=== PATIENT | female | born 1955 | race Caucasian/White ===

== ENCOUNTER 2020-08-06 07:35 | Outpatient (REF) | payer OTHER, SELFPAY ==
[2020-08-06 11:28] LABS: Estimated Average Glucose 143 mg/dL; Hemoglobin A1c % 6.6 %
[2020-08-06 11:44] LABS: Alanine Aminotransferase 31 U/L (0-31); Albumin Level 4.4 g/dL (3.5-5.0); Alkaline Phosphatase 97 U/L (39-117); Anion Gap 15 (12-20); Aspartate Amino Transferase 24 U/L (5-31); Bilirubin Total 0.8 mg/dL (0.0-1.0); Blood Urea Nitrogen 18 mg/dL (9-16); Calcium 9.3 mg/dL (8.4-10.2); Carbon Dioxide 28 mmol/L (22-29); Chloride 100 mmol/L (96-108); Cholesterol 173 mg/dL; Estimated Glomerular Filt Rate > 60; Glucose Fasting 123 mg/dL (60-99); HDL Cholesterol 69 mg/dL; LDL Cholesterol Calculated 91 mg/dl; Potassium 4.6 mmol/l (3.3-5.1); Sodium 138 mmol/L (135-145); Total Protein 7.6 g/dL (6.5-8.0); Triglycerides 66 mg/dL
[2020-08-06 12:13] LABS: Creatinine Urine 63.67 mg/dL; Microalbum/Creatinine Ratio Ur 7.8 ug/mg cr
== END 2020-08-06 07:36 | disposition home or self-care (01) ==
LOC: HO.HMGCLDS 07:35
PROVIDERS: PCP Internal Medicine; Visit Provider Internal Medicine
DX: E11.9 Type 2 diabetes mellitus without complications (principal); I10 Essential (primary) hypertension; E78.5 Hyperlipidemia, unspecified
CPT/HCPCS: 80053; 80061; 82043; 83036; 84443

== ENCOUNTER 2020-12-10 07:20 | Outpatient (REF) | payer OTHER, SELFPAY ==
[2020-12-10 11:52] LABS: Alanine Aminotransferase 27 U/L (0-31); Albumin Level 4.4 g/dL (3.5-5.0); Alkaline Phosphatase 93 U/L (39-117); Anion Gap 14 (12-20); Aspartate Amino Transferase 21 U/L (5-31); Bilirubin Total 0.6 mg/dL (0.0-1.0); Blood Urea Nitrogen 20 mg/dL (9-16); Calcium 9.2 mg/dL (8.4-10.2); Carbon Dioxide 29 mmol/L (22-29); Chloride 101 mmol/L (96-108); Cholesterol 185 mg/dL; Estimated Glomerular Filt Rate > 60; Glucose Fasting 114 mg/dL (60-99); HDL Cholesterol 67 mg/dL; LDL Cholesterol Calculated 103 mg/dl; Potassium 5.3 mmol/L (3.3-5.1); Sodium 139 mmol/L (135-145); Total Protein 7.4 g/dL (6.5-8.0); Triglycerides 76 mg/dL
[2020-12-10 12:00] LABS: Estimated Average Glucose 131 mg/dL; Hemoglobin A1c % 6.2 %
[2020-12-10 12:09] LABS: Creatinine Urine 39.89 mg/dL; Microalbumin Urine < 5.0 mg/L
[2020-12-10 12:17] LABS: TSH reflex Free T4 0.61 uIU/mL (0.32-4.0)
== END 2020-12-10 07:21 | disposition home or self-care (01) ==
LOC: HO.HMGCLDS 07:20
PROVIDERS: PCP Internal Medicine; Visit Provider Internal Medicine
DX: E11.9 Type 2 diabetes mellitus without complications (principal); I10 Essential (primary) hypertension; E78.5 Hyperlipidemia, unspecified
CPT/HCPCS: 36415; 80053; 80061; 82043; 83036; 84443

== ENCOUNTER 2021-05-18 07:05 | Outpatient (REF) | payer OTHER, SELFPAY ==
[2021-05-18 11:30] LABS: Hematocrit 45.1 % (37-47); Hemoglobin 14.5 g/dl (12.0-16.0); Mean Corpuscular HGB Conc 32.2 g/dl (31.0-35.0); Mean Corpuscular Hemoglobin 27.1 pg (27.0-33.0); Mean Corpuscular Volume 84.1 fL (80-98); Mean Platelet Volume 10.8 fL (9.4-12.3); Platelet Count 224 X10*3/uL (160-400); Red Blood Count 5.36 X10*6/uL (4.20-5.50); Red Cell Distribution Width 14.1 % (11.0-16.0); White Blood Count 7.2 X10*3/uL (4.8-10.8)
[2021-05-18 11:56] LABS: Alanine Aminotransferase 19 U/L (0-31); Albumin Level 4.1 g/dL (3.5-5.0); Alkaline Phosphatase 85 U/L (39-117); Anion Gap 13 (12-20); Aspartate Amino Transferase 17 U/L (5-31); Bilirubin Total 0.6 mg/dL (0.0-1.0); Blood Urea Nitrogen 24 mg/dL (9-16); Calcium 9.4 mg/dL (8.4-10.2); Carbon Dioxide 28 mmol/L (22-29); Chloride 101 mmol/L (96-108); Cholesterol 201 mg/dL; Estimated Glomerular Filt Rate > 60; Glucose Fasting 117 mg/dL (60-99); HDL Cholesterol 78 mg/dL; LDL Cholesterol Calculated 110 mg/dl; Potassium 5.2 mmol/L (3.3-5.1); Sodium 137 mmol/L (135-145); Triglycerides 68 mg/dL
[2021-05-18 12:24] LABS: Creatinine Urine 56.26 mg/dL; Microalbumin Urine < 5.0 mg/L
[2021-05-18 12:59] LABS: Estimated Average Glucose 134 mg/dL; Hemoglobin A1c % 6.3 %
== END 2021-05-18 07:06 | disposition home or self-care (01) ==
LOC: HO.HMGCLDS 07:05
PROVIDERS: PCP Internal Medicine; Visit Provider Internal Medicine
DX: E11.9 Type 2 diabetes mellitus without complications (principal); I10 Essential (primary) hypertension; E78.5 Hyperlipidemia, unspecified
CPT/HCPCS: 36415; 80053; 80061; 82043; 83036; 85027

== ENCOUNTER 2021-09-22 09:04 | Outpatient (REF) | payer OTHER, SELFPAY ==
[2021-09-22 11:38] LABS: Estimated Average Glucose 137 mg/dL; Hemoglobin A1c % 6.4 %
[2021-09-22 11:48] LABS: Creatinine Urine 79.21 mg/dL; Microalbum/Creatinine Ratio Ur 6.3 ug/mg cr
[2021-09-22 11:58] LABS: Alanine Aminotransferase 26 U/L (0-31); Albumin Level 4.3 g/dL (3.5-5.0); Alkaline Phosphatase 87 U/L (39-117); Anion Gap 14 (12-20); Aspartate Amino Transferase 20 U/L (5-31); Bilirubin Total 0.6 mg/dL (0.0-1.0); Blood Urea Nitrogen 23 mg/dL (9-16); Calcium 9.5 mg/dL (8.4-10.2); Carbon Dioxide 26 mmol/L (22-29); Chloride 102 mmol/L (96-108); Cholesterol 190 mg/dL; Estimated Glomerular Filt Rate > 60; Glucose Fasting 111 mg/dL (60-99); HDL Cholesterol 72 mg/dL; LDL Cholesterol Calculated 102 mg/dl; Potassium 4.6 mmol/L (3.3-5.1); Sodium 137 mmol/L (135-145); Total Protein 7.6 g/dL (6.5-8.0); Triglycerides 82 mg/dL
== END 2021-09-22 09:05 | disposition home or self-care (01) ==
LOC: HO.HMGCLDS 09:04
PROVIDERS: Visit Provider Internal Medicine
DX: E11.9 Type 2 diabetes mellitus without complications (principal); E78.5 Hyperlipidemia, unspecified; I10 Essential (primary) hypertension
CPT/HCPCS: 36415; 80053; 80061; 82043; 83036

== ENCOUNTER 2021-12-14 08:17 | Outpatient (REF) | payer OTHER, SELFPAY ==
[2021-12-14 11:55] LABS: Alanine Aminotransferase 25 U/L (0-31); Albumin Level 4.2 g/dL (3.5-5.0); Alkaline Phosphatase 93 U/L (39-117); Anion Gap 14 (12-20); Aspartate Amino Transferase 20 U/L (5-31); Bilirubin Total 0.7 mg/dL (0.0-1.0); Blood Urea Nitrogen 20 mg/dL (9-16); Carbon Dioxide 28 mmol/L (22-29); Chloride 101 mmol/L (96-108); Cholesterol 182 mg/dL; Estimated Glomerular Filt Rate > 60; Glucose Fasting 127 mg/dL (60-99); HDL Cholesterol 61 mg/dL; LDL Cholesterol Calculated 108 mg/dl; Potassium 4.9 mmol/L (3.3-5.1); Sodium 138 mmol/L (135-145); Total Protein 7.4 g/dL (6.5-8.0); Triglycerides 69 mg/dL
[2021-12-14 12:10] LABS: Estimated Average Glucose 140 mg/dL; Hemoglobin A1C 176.4595 umol/L; Hemoglobin A1c % 6.5 %
[2021-12-14 12:18] LABS: TSH reflex Free T4 0.49 uIU/mL (0.32-4.0)
== END 2021-12-14 08:18 | disposition home or self-care (01) ==
LOC: HO.HMGCLDS 08:17
PROVIDERS: Visit Provider Internal Medicine
DX: E11.9 Type 2 diabetes mellitus without complications (principal); I10 Essential (primary) hypertension; E78.5 Hyperlipidemia, unspecified
CPT/HCPCS: 36415; 80053; 80061; 83036; 84443

== ENCOUNTER 2022-04-19 06:56 | Outpatient (REF) | payer OTHER, SELFPAY ==
[2022-04-19 11:45] LABS: Hematocrit 40.2 % (37.0-47.0); Mean Corpuscular HGB Conc 32.3 g/dl (31.0-35.0); Mean Corpuscular Hemoglobin 27.1 pg (27.0-33.0); Mean Corpuscular Volume 83.8 fL (80.0-98.0); Mean Platelet Volume 11.1 fL (9.4-12.3); Platelet Count 242 X10*3/uL (160-400); Red Cell Distribution Width 13.2 % (11.0-16.0); White Blood Count 7.9 X10*3/uL (4.8-10.8)
[2022-04-19 11:54] LABS: Alanine Aminotransferase 24 U/L (0-31); Albumin Level 4.3 g/dL (3.5-5.0); Alkaline Phosphatase 93 U/L (39-117); Anion Gap 14 (12-20); Aspartate Amino Transferase 18 U/L (5-31); Bilirubin Total 0.3 mg/dL (0.0-1.0); Blood Urea Nitrogen 17 mg/dL (9-16); Calcium 9.1 mg/dL (8.4-10.2); Carbon Dioxide 28 mmol/L (22-29); Chloride 103 mmol/L (96-108); Cholesterol 169 mg/dL; Estimated Glomerular Filt Rate > 60; Glucose Fasting 133 mg/dL (60-99); HDL Cholesterol 59 mg/dL; LDL Cholesterol Calculated 94 mg/dl; Potassium 5.1 mmol/L (3.3-5.1); Sodium 140 mmol/L (135-145); Total Protein 7.3 g/dL (6.5-8.0); Triglycerides 83 mg/dL
[2022-04-19 11:59] LABS: Estimated Average Glucose 148 mg/dL; Hemoglobin A1c % 6.8 %
== END 2022-04-19 06:57 | disposition home or self-care (01) ==
LOC: HO.HMGCLDS 06:56
PROVIDERS: PCP Internal Medicine; Visit Provider Internal Medicine
DX: E11.9 Type 2 diabetes mellitus without complications (principal); I10 Essential (primary) hypertension
CPT/HCPCS: 36415; 80053; 80061; 83036; 85027

== ENCOUNTER 2022-08-17 07:28 | Outpatient (REF) | payer OTHER, SELFPAY ==
[2022-08-17 11:20] LABS: MANUAL DIFF FLAG NO
[2022-08-17 11:46] LABS: Basophils Absolute Auto 0.1 X10*3/uL (0.0-0.2); Basophils Percent Auto 0.7 % (0-2); Eosinophils Absolute Auto 0.1 X10*3/uL (0.0-0.4); Eosinophils Percent Auto 1.2 % (0-4); Hematocrit 41.4 % (37.0-47.0); Hemoglobin 13.3 g/dl (12.0-16.0); Imm Gran Abs Auto 0.04 X10*3/uL (0.00-0.03); Imm Gran Pct Auto 0.5 % (0.0-0.4); Lymphocytes Absolute Auto 1.9 X10*3/uL (1.2-4.9); Lymphocytes Percent Auto 22.3 % (20-40); Mean Corpuscular HGB Conc 32.1 g/dl (31.0-35.0); Mean Corpuscular Hemoglobin 26.8 pg (27.0-33.0); Mean Corpuscular Volume 83.5 fL (80.0-98.0); Mean Platelet Volume 10.7 fL (9.4-12.3); Monocytes Absolute Auto 0.7 X10*3/uL (0.1-1.2); Monocytes Percent Auto 7.9 % (2-11); Neutrophils Absolute Auto 5.6 x10*3/uL (2.0-8.3); Neutrophils Percent Auto 67.4 % (45-73); Platelet Count 247 X10*3/uL (160-400); Red Blood Count 4.96 X10*6/uL (4.20-5.50); Red Cell Distribution Width 14.6 % (11.0-16.0); White Blood Count 8.4 X10*3/uL (4.8-10.8)
[2022-08-17 11:58] LABS: Estimated Average Glucose 126 mg/dL
[2022-08-17 12:43] LABS: Alanine Aminotransferase 21 U/L (0-31); Albumin Level 4.3 g/dL (3.5-5.0); Alkaline Phosphatase 91 U/L (39-117); Anion Gap 13 (12-20); Aspartate Amino Transferase 17 U/L (5-31); Bilirubin Total 0.4 mg/dL (0.0-1.0); Blood Urea Nitrogen 20 mg/dL (9-16); Calcium 9.7 mg/dL (8.4-10.2); Carbon Dioxide 29 mmol/L (22-29); Chloride 101 mmol/L (96-108); Estimated Glomerular Filt Rate > 60; Glucose Fasting 125 mg/dL (60-99); Potassium 4.7 mmol/L (3.3-5.1); Sodium 138 mmol/L (135-145); Total Protein 7.3 g/dL (6.5-8.0)
== END 2022-08-17 07:29 | disposition home or self-care (01) ==
LOC: HO.HMGCLDS 07:28
PROVIDERS: PCP Internal Medicine; Visit Provider Internal Medicine
DX: E11.9 Type 2 diabetes mellitus without complications (principal); E78.5 Hyperlipidemia, unspecified; I10 Essential (primary) hypertension
CPT/HCPCS: 36415; 80053; 83036; 85025

== ENCOUNTER 2022-08-23 11:04 | Outpatient (REF) | payer OTHER, SELFPAY ==
--- NOTE | ~2022-08-23 | XR_ITS ---
EXAMINATION: XR SHOULDER, LEFT CLINICAL INFORMATION: Left shoulder pain. COMPARISON: None TECHNIQUE: Three views of the left shoulder. FINDINGS: Bones have normal alignment. Minimal osteophyte formation of the acromioclavicular joint. The humeral head is well-positioned over the intact glenoid. Glenohumeral joint space is maintained. A punctate calcification projects inferior to the glenoid in region of long triceps attachment. However, no calcium deposition within rotator cuff tendons. The subacromial space is maintained. No hook-shaped acromion, os acromiale or subacromial enthesophyte. No osseous findings that would predispose to a subacromial impingement disorder. XR/XR shoulder LT min 2V IMPRESSION: * No fracture or malalignment at the left shoulder. * Minimal osteoarthrosis of the acromioclavicular joint.
== END 2022-08-23 11:05 | disposition home or self-care (01) ==
LOC: HO.HMGCX 11:04
PROVIDERS: PCP Internal Medicine; Visit Provider Internal Medicine
DX: M25.512 Pain in left shoulder (principal)
CPT/HCPCS: 73030

== ENCOUNTER 2022-09-20 11:00 | Outpatient (RCR) | payer MEDICARE, OTHER, SELFPAY ==
--- NOTE | 2022-09-15 13:45 | MHC.PT.EP ---
[facility] [place] Office [place] Office [place] Office [address] Margi Gomez [address] [phone] F: [phone] F: [phone] F: [phone] F: [phone] Physical Therapy Plan of Care Date of Evaluation: Date of Surgery: n/a Diagnosis: pain in L shoulder Assessment: Patient is a 66 year old female presenting to PT with complaints of pain in her L shoulder. Pt reports onset of pain began about 2 months ago due to insidious onset but likely due to repetitive use at work. She presents today with impairments in pain, ROM, shoulder strength, posture. 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 Pt expresses fpc goal of reducing pain, and is motivated to work towards this in PT. Clinical presentation today is most consistent with signs and sx associated with possible RC tendonitis and pt will benefit from skilled PT to address the following problems and impairments noted upon evaluation: pain, ROM, shoulder strength, posture. These problems limit the patient with the following functional activities: reaching, lifting, ADLs, work. The prescribed treatment plan of care is medically necessary. Co-morbidities of T2DM were identified and taken into considerations of plan of care. Pt was educated on HEP, role of PT, prognosis, POC. Frequency and Duration: The patient will be seen 2 x week x 4 weeks Short Term Goals: Pt will demonstrate improved shoulder ROM to full and pain free in 2 weeks. Pt will demonstrate full pain free strength of R shoulder in 2 weeks. Pt will demonstrate improved postural awareness by sitting with biomechanically correct posture without cues throughout session to improve overall postural function in 2 weeks. 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 Pt will demonstrate ability to reach with min to no pain in 4 weeks for improved tolerance to ADLs. Pt will demonstrate ability to lift with min to no pain in 4 weeks for improved tolerance to work. Treatment Plan: Modalities to reduce pain, spasms and effusion. Manual therapy to restore motion and function. Therapeutic exercise to improve strength and flexibility. Neuromuscular re-education for posture and balance. Therapeutic activities to return to functional activities of daily living. Electronically signed by: Mady Diaz, PT, DPT, ATC Please sign and return to therapist. Thank you for your referral.
--- NOTE | 2022-10-19 13:23 | MHC.PT.DC ---
[facility] [place] Office [place] Office [place] Office [address] Margi Gomez [address] [phone] F: [phone] F: [phone] F: [phone] F: [phone] Physical Therapy Discharge Report Diagnosis: pain in L shoulder Date of Surgery: n/a Date of Evaluation: 09/15/22 Date of Discharge: 10/19/22 Treatments to Date: 2 Cancellations to Date: 1 No Shows to Date: 0 Discharge Status: Discharge Summary: Pt cancelled her last scheduled appointment and has not called to rebook in 30 days. Pt to be d/c per policy. Electronically signed by: Mady Diaz, PT, DPT, ATC Please sign and return to therapist. Thank you for your referral.
== END 2022-10-19 13:23 | disposition home or self-care (01) ==
LOC: HO.PTCHIC 11:00
PROVIDERS: PCP Internal Medicine; Visit Provider Internal Medicine
DX: M25.512 Pain in left shoulder (principal)
CPT/HCPCS: 97110; 97161

== ENCOUNTER 2022-12-13 06:48 | Outpatient (REF) | payer OTHER, SELFPAY ==
[2022-12-13 11:27] LABS: MANUAL DIFF FLAG NO
[2022-12-13 11:39] LABS: Basophils Absolute Auto 0.1 X10*3/uL (0.0-0.2); Basophils Percent Auto 0.7 % (0-2); Eosinophils Absolute Auto 0.3 X10*3/uL (0.0-0.4); Eosinophils Percent Auto 3.4 % (0-4); Hematocrit 40.3 % (37.0-47.0); Imm Gran Abs Auto 0.04 X10*3/uL (0.00-0.03); Imm Gran Pct Auto 0.5 % (0.0-0.4); Lymphocytes Percent Auto 23.3 % (20-40); Mean Corpuscular HGB Conc 32.3 g/dl (31.0-35.0); Mean Corpuscular Hemoglobin 26.3 pg (27.0-33.0); Mean Corpuscular Volume 81.4 fL (80.0-98.0); Mean Platelet Volume 10.8 fL (9.4-12.3); Monocytes Absolute Auto 0.7 X10*3/uL (0.1-1.2); Monocytes Percent Auto 8.1 % (2-11); Neutrophils Absolute Auto 5.4 x10*3/uL (2.0-8.3); Platelet Count 270 X10*3/uL (160-400); Red Blood Count 4.95 X10*6/uL (4.20-5.50); Red Cell Distribution Width 14.9 % (11.0-16.0); White Blood Count 8.5 X10*3/uL (4.8-10.8)
[2022-12-13 12:10] LABS: Estimated Average Glucose 140 mg/dL; Hemoglobin A1c % 6.5 %
[2022-12-13 12:28] LABS: Alanine Aminotransferase 23 U/L (0-31); Albumin Level 4.1 g/dL (3.5-5.0); Alkaline Phosphatase 90 U/L (39-117); Anion Gap 12 (12-20); Aspartate Amino Transferase 17 U/L (5-31); Bilirubin Total 0.6 mg/dL (0.0-1.0); Blood Urea Nitrogen 19 mg/dL (9-16); Calcium 9.5 mg/dL (8.4-10.2); Carbon Dioxide 29 mmol/L (22-29); Chloride 102 mmol/L (96-108); Cholesterol 184 mg/dL; Estimated Glomerular Filt Rate > 60; Glucose Fasting 150 mg/dL (60-99); HDL Cholesterol 59 mg/dL; LDL Cholesterol Calculated 107 mg/dl; Potassium 5.1 mmol/L (3.3-5.1); Sodium 138 mmol/L (135-145); Total Protein 7.2 g/dL (6.5-8.0); Triglycerides 90 mg/dL
== END 2022-12-13 06:49 | disposition home or self-care (01) ==
LOC: HO.HMGCLDS 06:48
PROVIDERS: PCP Internal Medicine; Visit Provider Internal Medicine
DX: E11.9 Type 2 diabetes mellitus without complications (principal); I10 Essential (primary) hypertension; E78.5 Hyperlipidemia, unspecified; M25.512 Pain in left shoulder
CPT/HCPCS: 36415; 80053; 80061; 83036; 84443; 85025

== ENCOUNTER 2022-12-18 12:35 | Outpatient (REF) | payer OTHER, SELFPAY ==
--- NOTE | ~2022-12-18 | XR_ITS ---
EXAMINATION: XR CHEST CLINICAL INFORMATION: Cough COMPARISON: None available. TECHNIQUE: 2 views of the chest were obtained. FINDINGS: No significant abnormality is noted involving the heart, lungs, mediastinum, bony thorax or soft tissues. XR/XR chest 2V IMPRESSION: Unremarkable examination.
== END 2022-12-18 12:36 | disposition home or self-care (01) ==
LOC: HO.HMGCX 12:35
PROVIDERS: PCP Internal Medicine; Visit Provider Internal Medicine
DX: R05.9 Cough, unspecified (principal)
CPT/HCPCS: 71046

== ENCOUNTER 2023-03-16 06:31 | Outpatient (REF) | payer OTHER, SELFPAY ==
[2023-03-16 11:31] LABS: MANUAL DIFF FLAG NO
[2023-03-16 11:37] LABS: Basophils Absolute Auto 0.1 X10*3/uL (0.0-0.2); Basophils Percent Auto 0.6 % (0-2); Hematocrit 40.1 % (37.0-47.0); Hemoglobin 12.8 g/dl (12.0-16.0); Imm Gran Abs Auto 0.02 X10*3/uL (0.00-0.03); Imm Gran Pct Auto 0.3 % (0.0-0.4); Lymphocytes Percent Auto 24.6 % (20-40); Mean Corpuscular HGB Conc 31.9 g/dl (31.0-35.0); Mean Corpuscular Hemoglobin 25.9 pg (27.0-33.0); Monocytes Absolute Auto 0.7 X10*3/uL (0.1-1.2); Monocytes Percent Auto 8.5 % (2-11); Neutrophils Absolute Auto 5.3 x10*3/uL (2.0-8.3); Platelet Count 258 X10*3/uL (160-400); Red Blood Count 4.95 X10*6/uL (4.20-5.50); Red Cell Distribution Width 14.6 % (11.0-16.0)
[2023-03-16 12:35] LABS: Estimated Average Glucose 137 mg/dL; Hemoglobin A1c % 6.4 %
[2023-03-16 12:47] LABS: Alanine Aminotransferase 27 U/L (0-31); Albumin Level 4.2 g/dL (3.5-5.0); Alkaline Phosphatase 84 U/L (39-117); Anion Gap 12 (12-20); Aspartate Amino Transferase 18 U/L (5-31); Bilirubin Total 0.6 mg/dL (0.0-1.0); Blood Urea Nitrogen 17 mg/dL (9-16); Calcium 9.6 mg/dL (8.4-10.2); Carbon Dioxide 27 mmol/L (22-29); Chloride 103 mmol/L (96-108); Cholesterol 159 mg/dL; Estimated Glomerular Filt Rate > 60; Glucose Fasting 129 mg/dL (60-99); HDL Cholesterol 57 mg/dL; LDL Cholesterol Calculated 87 mg/dl; Potassium 4.6 mmol/L (3.3-5.1); Sodium 137 mmol/L (135-145); Total Protein 7.6 g/dL (6.5-8.0); Triglycerides 78 mg/dL
[2023-03-16 12:59] LABS: Creatinine Urine 50.03 mg/dL; Microalbum/Creatinine Ratio Ur 11.9 ug/mg cr
== END 2023-03-16 06:32 | disposition home or self-care (01) ==
LOC: HO.HMGCLDS 06:31
PROVIDERS: PCP Internal Medicine; Visit Provider Internal Medicine
DX: I10 Essential (primary) hypertension (principal); E11.9 Type 2 diabetes mellitus without complications; E78.5 Hyperlipidemia, unspecified
CPT/HCPCS: 36415; 80053; 80061; 82043; 83036; 85025

== ENCOUNTER 2023-03-21 09:53 | Outpatient (AMB) | payer OTHER, SELFPAY ==
--- NOTE | 2023-03-21 10:10 | MHC.PC.OV ---
Vital Signs 03/21/23 10:11 Height 5 ft 1 in Weight 173 lb BMI 32.7 BP 116/62 Blood Pressure Location Rt brachial Position Sitting Pulse 83 Pulse Source Pulse Oximeter Pulse Oximetry (%) 96 Oxygen Delivery Method Room Air Intake Visit Reasons: 3m follow up Intake Note: Pt is here today for 3 months follow up visit. Pt c/o join pain, Allergies lisinopril Allergy (Unknown, Verified 03/21/23 10:24) cough dulaglutide [From Trulicity] Adverse Reaction (Verified 03/21/23 10:26) chills and sweats Medication List - Last Reconciled 03/21/23 by Nat Cotton MD amlodipine 5 mg PO BID atorvastatin 40 mg PO DAILY celecoxib (Celebrex) 200 mg PO DAILY flu vacc [id number] 6mos up(PF) mL IM glimepiride 2 mg PO DAILY hydrochlorothiazide 12.5 mg PO DAILY irbesartan 300 mg PO DAILY metformin 1,000 mg PO BID omeprazole 20 mg PO DAILY triamcinolone acetonide 0.5% 1 appl topical DAILY Tobacco use date assessed: 03/21/23 Fall risk assessment: No Falls in past year Last assessed Fall Risk: 03/21/23 Dental Screening Dental Screen Date: 03/21/23 Did you have a dental visit in the last 12 months?: Yes Did you have a dental problem in the last 6 months where you did not have access to dental care?: No Was dental information given to patient?: Patient has dentist HPI 3m follow up HPI Details Patient presents for a follow-up of type 2 diabetes hypertension hyperlipidemia. She could not tolerate Trulicity. Patient developed tremors and low glucose despite stopping glimepiride. Patient complains of bilateral hand pain burning-like sensation worse at night right more than left. 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 Mother No problems noted. Son No problems noted. Son No problems noted. Social History Housing: House Alcohol intake: never Patient Tobacco Use Status: Never used Tobacco e-Cigarette/Vaping Use: Never Used Current occupational status: employed Cognitive needs: No (wears glasses) Hearing needs: No Vision needs: Yes (wearing glasses ) Questionnaire Thrive Questionnaire Date Thrive assessed: 12/29/21 AUDIT C Alcohol Use Questionnaire (AUDIT-C) 1. How often do you have a drink containing alcohol?: Never 3. How often do you have six or more drinks on one occasion?: Never Total Score: 0 ODESSA-7 AMB Questionnaire ODESSA-7 Date ODESSA - 7 assessed: 12/29/21 Source: Developed by Drs. Mikhail Baca, Julienne Murrell, Brian Scott and colleagues, with an educational patrick from [employer]. Review of Systems Const All systems reviewed & are unremarkable except as noted in HPI and below Reports no additional complaints Eyes Reports no additional complaints ENT Reports no additional complaints Card Reports no additional complaints Resp Reports no additional complaints GI Reports no additional complaints Reports no additional complaints Physical exam (Primary Care) Vital Signs: Last Vital Signs Pulse 83 03/21/23 10:11 BP 116/62 03/21/23 10:11 Pulse Ox 96 03/21/23 10:11 Oxygen Delivery Method Room Air 03/21/23 10:11 BMI result Body Mass Index 32.7 Tobacco/Smoking Status: Tobacco use Status Tobacco use date assessed 03/21/23 03/21/23 10:27 Patient Tobacco Use Status Never used Tobacco 03/21/23 10:13 e-Cigarette/Vaping Use Never Used 03/21/23 10:13 Thrive Assessment: Date of Thrive Assessment Date Thrive assessed 12/29/21 03/21/23 10:13 Const General: no acute distress HENMT Head: Yes normal to inspection Ears: hearing grossly normal bilaterally Eyes General: appearance normal, both eyes and all related structures Neck Neck: Yes supple Resp Effort & Inspection: normal respiratory effort Auscultation: clear to auscultation bilaterally Cardio Rhythm: regular rhythm Heart sounds: S1 normal heart sound present and S2 normal heart sound present GI Inspection: Yes normal to inspection Palpation (GI): Soft to palpation Percussion: Yes normal to percussion Auscultation: normal bowel sounds Assessment and Plan Assessment & Plan (1) Hypertension: Code(s): I10 - Essential (primary) hypertension Plan: Continue current medications (2) Type 2 diabetes mellitus: Comment: Insurance did not cover Farxiga or Jardiance, Trulicity caused hypoglycemia and tremor Code(s): E11.9 - Type 2 diabetes mellitus without complications Plan: A1c is 6.4 continue ADA diet increase physical activity and weight loss discussed with the patient. follow-up in 4 months with a fasting labs before (3) Hyperlipidemia: Code(s): E78.5 - Hyperlipidemia, unspecified Plan: Continue statin Orders: Orders Comprehensive [place]. Panel Fast 4 Months E11.9 - Type 2 diabetes mellitus without complications, E78.5 - Hyperlipidemia, unspecified, I10 - Essential (primary) hypertension Complete Blood Count Auto Diff 4 Months E11.9 - Type 2 diabetes mellitus without complications, E78.5 - Hyperlipidemia, unspecified, I10 - Essential (primary) hypertension Hemoglobin A1c 4 Months E11.9 - Type 2 diabetes mellitus without complications, E78.5 - Hyperlipidemia, unspecified, I10 - Essential (primary) hypertension Lipid Panel 4 Months E11.9 - Type 2 diabetes mellitus without complications, E78.5 - Hyperlipidemia, unspecified, I10 - Essential (primary) hypertension UA w Microscopic 4 Months E11.9 - Type 2 diabetes mellitus without complications, E78.5 - Hyperlipidemia, unspecified, I10 - Essential (primary) hypertension Medications: Refilled celecoxib (Celebrex) 200 mg PO DAILY 30 caps 1RF Coding Level of Care Code Est Pt Level 4 (72443) Diagnoses Hypertension I10 Type 2 diabetes mellitus E11.9 Hyperlipidemia E78.5
[2023-03-21 10:11] VITALS: BP 116/62; PULSE 83; O2SAT 96; BMI 32.7
== END 2023-03-21 11:08 | disposition home or self-care (01) ==
PROVIDERS: Visit Provider Internal Medicine
DX: I10 Essential (primary) hypertension (principal); E11.9 Type 2 diabetes mellitus without complications; E78.5 Hyperlipidemia, unspecified
CPT/HCPCS: 99214

== ENCOUNTER 2023-05-14 10:53 | Outpatient (AMB) | payer OTHER, SELFPAY ==
--- NOTE | 2023-05-14 11:03 | A.OFFPC_ITS ---
Vital Signs 05/14/23 11:04 Height 5 ft 1 in Weight 173 lb BMI 32.7 BP 120/70 Blood Pressure Location Lt brachial Position Sitting Pulse 78 Pulse Source Pulse Oximeter Pulse Oximetry (%) 98 Oxygen Delivery Method Room Air Intake Visit Reasons: BP check/Per Dr. Cotton Intake Note: Pt is here today for ER follow up/ BP check. Pt states that her BP in Sunday and Sunday before taking her medication was 160/90 140/85 Pt c/o dizziness. Allergies lisinopril Allergy (Unknown, Verified 05/14/23 11:05) cough [facility] Adverse Reaction (Verified 05/14/23 11:05) chills and sweats Medication List - Last Reconciled 05/14/23 by Nat Cotton MD amlodipine 5 mg PO BID atorvastatin 40 mg PO DAILY celecoxib (Celebrex) 200 mg PO DAILY flu vacc [id number] 6mos up(PF) mL IM glimepiride 2 mg PO DAILY hydrochlorothiazide 12.5 mg PO DAILY irbesartan 300 mg PO DAILY metformin 1,000 mg PO BID omeprazole 20 mg PO DAILY triamcinolone acetonide 0.5% 1 appl topical DAILY Tobacco use date assessed: 03/21/23 HPI BP check/Per Dr. Cotton HPI Details Patient presents for the follow-up of ER visit for mechanical fall at work. Patient tripped over and fell on the right side. He had a negative right hip x-ray. The pain significantly. Patient reports fluctuating blood pressure at home up to 150/80 and did not bring her blood pressure monitor today. She has been compliant with her medications. Patient denies chest pain shortness of breath or headaches. [facility] Medical History Annual physical exam [place] of foot Dysphagia History of mammogram Hyperlipidemia Hypertension Mammogram normal Normal Pap smear Osteoarthritis Rash Type 2 diabetes mellitus Surgical History H/O colonoscopy No pertinent past surgical history Family History Father No problems noted. Mother No problems noted. Son No problems noted. Son No problems noted. Social History Housing: House Alcohol intake: never Patient Tobacco Use Status: Never used Tobacco e-Cigarette/Vaping Use: Never Used Current occupational status: employed Cognitive needs: No (wears glasses) Hearing needs: No Vision needs: Yes (wearing glasses ) Questionnaire Thrive Questionnaire Date Thrive assessed: 12/29/21 ODESSA-7 AMB Questionnaire ODESSA-7 Date ODESSA - 7 assessed: 12/29/21 Source: Developed by Drs. Mikhail Baca, Julienne Murrell, Brian Scott and colleagues, with an educational patrick from [employer]. Review of Systems Const All systems reviewed & are unremarkable except as noted in HPI and below Reports no additional complaints ENT Reports no additional complaints Card Reports no additional complaints Reports no additional complaints Musc Reports no additional complaints Physical exam (Primary Care) Vital Signs: Last Vital Signs Pulse 78 05/14/23 11:04 BP 120/70 05/14/23 11:04 Pulse Ox 98 05/14/23 11:04 Oxygen Delivery Method Room Air 05/14/23 11:04 BMI result Body Mass Index 32.7 Tobacco/Smoking Status: Tobacco use Status Tobacco use date assessed 03/21/23 05/14/23 11:06 Patient Tobacco Use Status Never used Tobacco 05/14/23 11:06 e-Cigarette/Vaping Use Never Used 05/14/23 11:06 Thrive Assessment: Date of Thrive Assessment Date Thrive assessed 12/29/21 05/14/23 11:06 Const General: no acute distress HENMT Face and sinus: Yes normal facial exam Neck Neck: Yes supple Resp Effort & Inspection: normal respiratory effort Auscultation: clear to auscultation bilaterally Cardio Rhythm: regular rhythm Heart sounds: S1 normal heart sound present Back/Spine/Pelvis Other: Both hips with full range of motion Assessment and Plan Assessment & Plan (1) Hypertension: Code(s): I10 - Essential (primary) hypertension Plan: Continue current medications follow low sodium diet increase physical activity discussed with the patient. Check BMP Orders: Orders Basic Metabolic Panel Today I10 - Essential (primary) hypertension Coding Level of Care Code Est Pt Level 3 (31141) Diagnoses Hypertension I10
[2023-05-14 11:04] VITALS: BP 120/70; PULSE 78; O2SAT 98; BMI 32.7
== END 2023-05-14 12:11 | disposition home or self-care (01) ==
PROVIDERS: PCP Internal Medicine; Visit Provider Internal Medicine
DX: I10 Essential (primary) hypertension (principal)
CPT/HCPCS: 99213

== ENCOUNTER 2023-05-14 11:26 | Outpatient (REF) | payer OTHER, SELFPAY ==
[2023-05-14 13:46] LABS: Anion Gap 12 (12-20); Blood Urea Nitrogen 15 mg/dL (9-16); Carbon Dioxide 29 mmol/L (22-29); Chloride 103 mmol/L (96-108); Estimated Glomerular Filt Rate > 60; Glucose Random 131 mg/dL (60-115); Potassium 4.7 mmol/L (3.3-5.1); Sodium 139 mmol/L (135-145)
== END 2023-05-14 11:27 | disposition home or self-care (01) ==
LOC: HO.HMGCLDS 11:26
PROVIDERS: PCP Internal Medicine; Visit Provider Internal Medicine
DX: I10 Essential (primary) hypertension (principal)
CPT/HCPCS: 36415; 80048

== ENCOUNTER 2023-07-25 07:00 | Outpatient (REF) | payer OTHER, MEDICARE, SELFPAY ==
[2023-07-25 12:02] LABS: Appearance Urine Clear; Color Urine Yellow; Glucose Urine UA Negative (Negative); Leukocyte Esterase Urine Negative (Negative); Nitrite Urine Negative (Negative); Urine Blood Negative (Negative); Urine Ketones Negative (Negative); Urine Protein Negative (Neg-Trace)
[2023-07-25 12:03] LABS: MANUAL DIFF FLAG NO
[2023-07-25 12:06] LABS: Bacteria Urine None Seen (None Seen); Hyaline Casts Urine 0-2 /LPF (0-2); RBC Urine 0-2 /HPF (0-2); Squamous Epithelial Cell Urine 0-2 /HPF (0-2); WBC Urine 0-5 /HPF (0-5)
[2023-07-25 12:12] LABS: Basophils Absolute Auto 0.1 X10*3/uL (0.0-0.2); Basophils Percent Auto 0.8 % (0-2); Eosinophils Percent Auto 0.4 % (0-4); Hematocrit 42.3 % (37.0-47.0); Hemoglobin 13.5 g/dl (12.0-16.0); Imm Gran Abs Auto 0.02 X10*3/uL (0.00-0.03); Imm Gran Pct Auto 0.3 % (0.0-0.4); Lymphocytes Absolute Auto 1.6 X10*3/uL (1.2-4.9); Lymphocytes Percent Auto 21.6 % (20-40); Mean Corpuscular HGB Conc 31.9 g/dl (31.0-35.0); Mean Corpuscular Hemoglobin 26.4 pg (27.0-33.0); Mean Corpuscular Volume 82.6 fL (80.0-98.0); Mean Platelet Volume 11.2 fL (9.4-12.3); Monocytes Absolute Auto 0.6 X10*3/uL (0.1-1.2); Monocytes Percent Auto 8.4 % (2-11); Neutrophils Absolute Auto 5.1 x10*3/uL (2.0-8.3); Neutrophils Percent Auto 68.5 % (45-73); Platelet Count 270 X10*3/uL (160-400); Red Blood Count 5.12 X10*6/uL (4.20-5.50); White Blood Count 7.5 X10*3/uL (4.8-10.8)
[2023-07-25 12:18] LABS: Estimated Average Glucose 154 mg/dL
[2023-07-25 12:29] LABS: Alanine Aminotransferase 36 U/L (0-31); Albumin Level 4.3 g/dL (3.5-5.0); Alkaline Phosphatase 94 U/L (39-117); Anion Gap 12 (12-20); Aspartate Amino Transferase 22 U/L (5-31); Bilirubin Total 0.4 mg/dL (0.0-1.0); Blood Urea Nitrogen 15 mg/dL (9-16); Calcium 9.7 mg/dL (8.4-10.2); Carbon Dioxide 28 mmol/L (22-29); Chloride 103 mmol/L (96-108); Cholesterol 168 mg/dL (<200); Estimated Glomerular Filt Rate > 60; Glucose Fasting 144 mg/dL (60-99); HDL Cholesterol 63 mg/dL (>40); LDL Cholesterol Calculated 89 mg/dL (<100); Potassium 4.8 mmol/L (3.3-5.1); Sodium 138 mmol/L (135-145); Total Protein 7.8 g/dL (6.5-8.0); Triglycerides 81 mg/dL (<150)
== END 2023-07-25 07:01 | disposition home or self-care (01) ==
LOC: HO.HMGCLDS 07:00
PROVIDERS: PCP Internal Medicine; Visit Provider Internal Medicine
DX: I10 Essential (primary) hypertension (principal); E11.9 Type 2 diabetes mellitus without complications; E78.5 Hyperlipidemia, unspecified
CPT/HCPCS: 36415; 80053; 80061; 81001; 83036; 85025

== ENCOUNTER 2023-08-03 08:22 | Outpatient (AMB) | payer MEDICARE, OTHER, SELFPAY ==
--- NOTE | 2023-08-03 08:33 | MHC.PC.OV ---
Vital Signs 08/03/23 08:36 Height 5 ft 1 in Weight 170 lb BMI 32.1 BP 128/72 Blood Pressure Location Lt brachial Position Sitting Pulse 77 Pulse Source Pulse Oximeter Pulse Oximetry (%) 98 Oxygen Delivery Method Room Air Intake Visit Reasons: PE Intake Note: Pt is here today for PE. Allergies lisinopril Allergy (Unknown, Verified 08/03/23 08:39) cough dulaglutide [From Trulicity] Adverse Reaction (Verified 08/03/23 08:39) chills and sweats Medication List - Last Reconciled 08/03/23 by Nat Cotton MD amlodipine 5 mg PO BID atorvastatin 40 mg PO DAILY celecoxib (Celebrex) 200 mg PO DAILY flu vacc [id number] 6mos up(PF) mL IM glimepiride 2 mg PO DAILY hydrochlorothiazide 12.5 mg PO DAILY irbesartan 300 mg PO DAILY metformin 1,000 mg PO BID omeprazole 20 mg PO DAILY triamcinolone acetonide 0.5% 1 appl topical DAILY Tobacco use date assessed: 08/03/23 Fall risk assessment: 1 Fall in past year Last assessed Fall Risk: 08/03/23 Dental Screening Dental Screen Date: 08/03/23 Did you have a dental visit in the last 12 months?: Yes Did you have a dental problem in the last 6 months where you did not have access to dental care?: No Was dental information given to patient?: Patient has dentist HPI PE HPI Details Pt presents for PE. Pt reports intermittent odynophagia, dysphagia worse to solids progressing over the last 2 months. Patient denies nausea vomiting but reports epigastric abdominal discomfort after eating. She denies hematochezia melena change in bowel habits. Patient complains of substernal chest pain on and off and dyspnea on exertion worse for the last 2 months. Patient denies nocturnal symptoms but reports intermittent chest pain at rest lasting a few minutes. The pain does not radiate to the neck or shoulder and is pressure-like 3 to 4/10. Patient reports intermittent nausea associated with the pain but not vomiting or diaphoresis. Patient complains of chronic right hand pain and tingling sensation worse at night. 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 [facility] Medical History (Updated 08/03/23 @ 09:49 by Nat Cotton MD) Rash Dysphagia [place] of foot Annual physical exam Normal Pap smear Mammogram normal History of mammogram Osteoarthritis Type 2 diabetes mellitus Hyperlipidemia Hypertension Surgical History H/O colonoscopy No pertinent past surgical history Family History Father No problems noted. Mother No problems noted. Son No problems noted. Son No problems noted. Social History Housing: House Alcohol intake: never Patient Tobacco Use Status: Never used Tobacco e-Cigarette/Vaping Use: Never Used Current occupational status: employed Cognitive needs: No (wears glasses) Hearing needs: No Vision needs: Yes (wearing glasses ) Questionnaire Thrive Questionnaire Date Thrive assessed: 12/29/21 ODESSA-7 AMB Questionnaire ODESSA-7 Date ODESSA - 7 assessed: 12/29/21 Source: Developed by Drs. Mikhail Baca, Julienne Murrell, Brian Scott and colleagues, with an educational patrick from [employer]. Review of Systems Const All systems reviewed & are unremarkable except as noted in HPI and below Reports no additional complaints Eyes Reports no additional complaints ENT Reports no additional complaints Card Reports no additional complaints Resp Reports no additional complaints GI Reports no additional complaints Reports no additional complaints Physical exam (Primary Care) Vital Signs: Last Vital Signs Pulse 77 08/03/23 08:36 BP 128/72 08/03/23 08:36 Pulse Ox 98 08/03/23 08:36 Oxygen Delivery Method Room Air 08/03/23 08:36 BMI result Body Mass Index 32.1 Tobacco/Smoking Status: Tobacco use Status Tobacco use date assessed 08/03/23 08/03/23 08:41 Patient Tobacco Use Status Never used Tobacco 08/03/23 08:41 e-Cigarette/Vaping Use Never Used 08/03/23 08:33 Thrive Assessment: Date of Thrive Assessment Date Thrive assessed 12/29/21 08/03/23 08:33 Const General: no acute distress HENMT Head: Yes normal to inspection Ears: hearing grossly normal bilaterally General nose exam: Normal external nose present Face and sinus: Yes normal facial exam Mouth: Normal oral and palatal mucosa present Throat: Yes posterior oropharynx normal Eyes General: appearance normal, both eyes and all related structures Neck Neck: Yes no lymphadenopathy and Yes supple Resp Effort & Inspection: normal respiratory effort Auscultation: clear to auscultation bilaterally Cardio Rhythm: regular rhythm Heart sounds: S1 normal heart sound present and S2 normal heart sound present GI Inspection: Yes normal to inspection Palpation (GI): Soft to palpation Percussion: Yes normal to percussion Auscultation: normal bowel sounds Assessment and Plan Assessment & Plan (1) Dysphagia: Code(s): R13.10 - Dysphagia, unspecified Plan: For worsening dysphagia and odynophagia to the solids patient will be referred to GI for endoscopy. She was advised to eat small, soft meals and omeprazole will be restarted. H pylori stool antigen will be checked. (2) Carpal tunnel syndrome of right wrist: Code(s): G56.01 - Carpal tunnel syndrome, right upper limb Plan: check EMG (3) Abdominal pain: Code(s): R10.9 - Unspecified abdominal pain Plan: check H pylori, try PPI, refer to GI (4) Odynophagia: Code(s): R13.10 - Dysphagia, unspecified (5) Chest pain: Code(s): R07.9 - Chest pain, unspecified Plan: ekg SHOWED nsr, QS in 3, aVF, flat T in V5-6, refer for nuclear stress test (6) Type 2 diabetes mellitus: Comment: Insurance did not cover Farxiga or Jardiance, Trulicity caused hypoglycemia and tremor Code(s): E11.9 - Type 2 diabetes mellitus without complications Plan: A1C is 7.0, ADA diet, exercise, weight loss discussed, add Ozempic 0.25 , f/u 3 months (7) Hypertension: Code(s): I10 - Essential (primary) hypertension Plan: cont meds (8) Hyperlipidemia: Code(s): E78.5 - Hyperlipidemia, unspecified Plan: cont statin (9) Hx of Helicobacter infection: Comment: 2013 Code(s): Z86.19 - Personal history of other infectious and parasitic diseases Orders: Orders NE electromyogram (EMG) Today G56.01 - Carpal tunnel syndrome, right upper limb H pylori Ag Stool Today R10.9 - Unspecified abdominal pain, R13.10 - Dysphagia, unspecified CA stress test Today R07.9 - Chest pain, unspecified NM cardiolite stress test Today I25.10 - Atherosclerotic heart disease of [place] coronary artery without angina pectoris Lipid Panel 3 Months E11.9 - Type 2 diabetes mellitus without complications, E78.5 - Hyperlipidemia, unspecified, I10 - Essential (primary) hypertension Comprehensive [place]. Panel Fast 3 Months E11.9 - Type 2 diabetes mellitus without complications, E78.5 - Hyperlipidemia, unspecified, I10 - Essential (primary) hypertension Hemoglobin A1c 3 Months E11.9 - Type 2 diabetes mellitus without complications, E78.5 - Hyperlipidemia, unspecified, I10 - Essential (primary) hypertension Complete Blood Count Auto Diff 3 Months E11.9 - Type 2 diabetes mellitus without complications, E78.5 - Hyperlipidemia, unspecified, I10 - Essential (primary) hypertension Microalbumin, Random (w Creat) 3 Months E11.9 - Type 2 diabetes mellitus without complications, E78.5 - Hyperlipidemia, unspecified, I10 - Essential (primary) hypertension Referrals Gastroenterology Referral R13.10 - Dysphagia, unspecified Medications: New semaglutide (Ozempic) for 4 weeks 0.25 mg (0.368 mL) subcut QWEEK 9 mL 0RF Coding Level of Care Code Est Pt Prev Care >65y(22186) Diagnoses Dysphagia R13.10 Carpal tunnel syndrome of right wrist G56.01 Abdominal pain R10.9 Odynophagia R13.10 Chest pain R07.9 Type 2 diabetes mellitus E11.9 Hypertension I10 Hyperlipidemia E78.5 Hx of Helicobacter infection Z86.19
[2023-08-03 08:36] VITALS: BP 128/72; PULSE 77; O2SAT 98; BMI 32.1
== END 2023-08-03 09:57 | disposition home or self-care (01) ==
PROVIDERS: PCP Internal Medicine; Visit Provider Internal Medicine
DX: Z00.00 Encounter for general adult medical examination without abnormal findings (principal); E11.69 Type 2 diabetes mellitus with other specified complication; R13.10 Dysphagia, unspecified; G56.01 Carpal tunnel syndrome, right upper limb; R10.9 Unspecified abdominal pain; R07.9 Chest pain, unspecified; I10 Essential (primary) hypertension; E78.5 Hyperlipidemia, unspecified; Z86.19 Personal history of other infectious and parasitic diseases
CPT/HCPCS: 99397

== ENCOUNTER → 2023-08-09 07:46 | Outpatient (REF) | payer OTHER, MEDICARE, SELFPAY ==
--- NOTE | ~2023-08-09 | NM_ITS ---
EXERCISE MYOCARDIAL PERFUSION STUDY INDICATION: Chest pain, assess for coronary disease and ischemia TECHNIQUE: The patient was brought in for an exercise perfusion study on 08/09/2023. Patient performed exercise as per Vito protocol and was injected 25 mCi of sestamibi once target heart rate was achieved. Images were obtained using the SPECT gamma camera interlaced with the gating device. Images were obtained in supine position. Resting perfusion study was performed on 08/10/2023. Patient was administered 25 mCi of sestamibi intravenously at rest. Images were then obtained in supine position. Images were processed with the software and compared side to side in short axis, horizontal long axis and vertical long axis views. Total DLP 124mGy-cm. FINDINGS: Raw images were reviewed. The stress perfusion study showed mildly diminished tracer uptake in the anterior apex. This is present with uncorrected as well as CT attenuation correction. The gated study shows normal LV systolic function with calculated LVEF of 73%. LV cavity is normal in size. The gated study shows normal wall thickening and contraction of segments. Resting study shows no significant perfusion defects. Gating at rest reveals normal wall motion with ejection fraction at 71%. The findings are consistent with mild reversible defect at the anterior apex. NM/NM cardiolite stress test IMPRESSION: 1. Myocardial perfusion imaging study shows mild ischemia in the distal LAD territory. 2. Gated LVEF is 73% during stress and 71% during rest. 3. Transient ischemic dilatation not present. EKG component of the test reported separately.
--- NOTE | 2023-08-09 07:48 | CA_ITS ---
Acquisition Time: 2023-08-09 08:01:04 Total Exercise Time: 00:07:23 Test Indications: Dyspnea CP Medications: AMLODIPINE ATORVASTATIN CELEBREX GLIMEPERIDE HTCZ IRBESARTAN METFORMIN OMEPRAZOLE Protocol: JULIANNA Max HR: 129 BPM 83% of Pred: 155 BPM Max BP: 174/072 mmHG Max Work Load: 8.0 METS Exercise stress test exercise 7 min 23 sec achieving 85% MPHR with mild SOB, 6/10 left chest ache, with isolated PVCs, with normotensive response to exercise, without EKG changes. Chest pain and breathing resolved with rest. Nuclear images pending. Test reviewed with Dr. Mohr. Referred By: Nat Cotton Overread By: Mary Jane Castillo
== END ==
LOC: HO.CARD 07:46
PROVIDERS: PCP Internal Medicine; Visit Provider Internal Medicine
DX: R07.9 Chest pain, unspecified (principal); I25.10 Atherosclerotic heart disease of native coronary artery without angina pectoris
CPT/HCPCS: 78452; 93017; A9500

== ENCOUNTER → 2023-08-09 07:48 | Outpatient (BNV) | payer OTHER, MEDICARE, SELFPAY | PROVIDERS: PCP Internal Medicine; Visit Provider Nurse Practitioner | DX: I25.10 Atherosclerotic heart disease of native coronary artery without angina pectoris (principal) | CPT/HCPCS: 78452; 93016; 93018 ==

== ENCOUNTER 2023-08-17 07:30 | Outpatient (REF) | payer OTHER, MEDICARE, SELFPAY | END 2023-08-17 07:31 | disposition home or self-care (01) | LOC: HO.HMGCLNP 07:30 | PROVIDERS: PCP Internal Medicine; Visit Provider Internal Medicine | DX: R13.10 Dysphagia, unspecified (principal); R10.9 Unspecified abdominal pain | CPT/HCPCS: 87338 ==

== ENCOUNTER 2023-08-29 08:40 | Outpatient (REF) | payer OTHER, MEDICARE, SELFPAY ==
--- NOTE | 2023-08-29 08:42 | EMG_ITS ---
Please see scanned EMG / Nerve Conduction Report. MTDD
== END 2023-08-29 08:41 | disposition home or self-care (01) ==
LOC: HO.NEURO 08:40
PROVIDERS: PCP Internal Medicine; Visit Provider Internal Medicine
DX: G56.01 Carpal tunnel syndrome, right upper limb (principal)
CPT/HCPCS: 95885; 95910

== ENCOUNTER 2023-09-05 12:21 | Outpatient (AMB) | payer OTHER, MEDICARE, SELFPAY ==
[2023-09-05 12:38] VITALS: BP 144/78; PULSE 88; BMI 30.8
--- NOTE | 2023-09-05 12:38 | MHC.OFFVIS ---
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 Intake Note: New patient abnormal stress test c/o chest pain atimes Lapel Stitcher Required: No Allergies lisinopril Allergy (Unknown, Verified 08/03/23 08:39) cough [facility] Adverse Reaction (Verified 08/03/23 08:39) chills and sweats Medication List - Last Reconciled 09/05/23 by Davonte Mireles MD amlodipine 5 mg PO BID atorvastatin 40 mg PO DAILY glimepiride 2 mg PO DAILY hydrochlorothiazide 12.5 mg PO DAILY irbesartan 300 mg PO DAILY metformin 1,000 mg PO BID omeprazole 20 mg PO DAILY HPI HPI Comments History of Present Illness Details Thank you for referring Malia in cardiology consultation today. She is a 67 woman with longstanding history of hypertension, diabetes and hyperlipidemia. She had a recent EKG which was felt to be abnormal and then see subsequently underwent a stress test. However she says over the last few weeks she has been having symptoms of retrosternal chest discomfort she describes a burning chest discomfort. She is awake historian but says the symptoms are more prominent work. 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 So sometimes when she is exerting she has gets this discomfort but also when she is stressed at rest she could get this discomfort. She therefore underwent a treadmill stress test was positive for chest discomfort and myocardial perfusion imaging which suggested distal LAD territory ischemia. She therefore is referred here for further evaluation. She is currently on amlodipine therapy. Blood pressure at home says ranges from systolic 130-140. She says her diabetes under control. She also takes statins regularly. She has been taking all her medications regularly. She denies any heart failure symptoms. Denies any prolonged palpitation irregular heartbeat. No lightheadedness, syncope. [facility] Medical History Rash Dysphagia [place] of foot Annual physical exam Normal Pap smear Mammogram normal History of mammogram Osteoarthritis Type 2 diabetes mellitus Hyperlipidemia Hypertension Surgical History H/O colonoscopy No pertinent past surgical history Family History Father No problems noted. Mother No problems noted. Son No problems noted. Son No problems noted. Social History Housing: House Alcohol intake: never Patient Tobacco Use Status: Never used Tobacco e-Cigarette/Vaping Use: Never Used Current occupational status: employed Cognitive needs: No (wears glasses) Hearing needs: No Vision needs: Yes (wearing glasses ) Review of Systems Const Denies chills, Denies daytime sleepiness, Denies fatigue, Denies fever(s), Denies frequent falls, Denies poor appetite, Denies snoring, Denies stops breathing during sleep, Denies weakness, Denies weight gain and Denies weight loss Eyes Denies loss of vision ENT Denies dizziness and Denies hearing loss Card Denies chest pain, Denies claudication, Denies leg edema, Denies lightheadedness, Denies palpitations, Denies dyspnea, Denies dyspnea on exertion and Denies orthopnea Resp Denies cough, Denies excessive phlegm production, Denies dyspnea, Denies dyspnea on exertion, Denies snoring and Denies wheezing GI Denies abdominal pain, Denies hematochezia, Denies change in bowel habits, Denies nausea and Denies vomiting Denies urinary frequency and Denies dysuria Musc Denies arthralgias, Denies muscle weakness, Denies numbness and Denies other (frequent falls) Skin/Breast Denies nail changes and Denies rash Neuro Denies Abnormal speech present, Denies dizziness, Denies frequent falls, Denies loss of vision, Denies memory loss, Denies numbness and Denies weakness Psych Denies depression and Denies memory loss Endo Denies fatigue and Denies palpitations Chandrakant/Lymph Reports easy bruising and Reports other (anemia) Aller/Immun Denies wheezing Physical Exam Vital Signs: Last Vital Signs Pulse 88 09/05/23 12:38 BP 144/78 H 09/05/23 12:38 BMI result Body Mass Index 30.8 Const General: cooperative, comfortable, no acute distress, alert, awake, Physically active and anxious Nutritional Appearance: overweight Orientation/consciousness: patient oriented x3 Limitations: no limitations HEENT Head: Yes normocephalic and Yes atraumatic Neck Neck: Yes trachea midline, Yes supple and Yes no JVD Resp Effort & Inspection: normal respiratory effort Auscultation: clear to auscultation bilaterally Cardio Jugular venous distension: no JVD Palpation: normal PMI Rate: regular rate Rhythm: regular rhythm Heart sounds: S1 normal heart sound present, S2 normal heart sound present, no click, no gallops, no murmurs and no rubs GI Auscultation: normal bowel sounds Skin General skin exam: no rashes or lesions noted Neuro General: patient oriented x3 and no focal motor deficits Speech: No Abnormal speech present Extrem General: Yes no clubbing, cyanosis or edema Psych Affect: Anxious affect present Assessment & Plan Assessment & Plan (1) Atypical angina: Code(s): 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 She has significant risk factors including diabetes, hypertension hyperlipidemia longstanding with abnormal stress test with both symptom positive stress test with LAD territory ischemia. We discussed about management. I think the best approach would be pursuing invasive cardiac catheterization to evaluate for significant coronary artery disease especially proximal LAD disease that may require intervention. This was discussed with her. I had a long discussion about the need for the procedure and details of the procedure including, risk, benefits, alternatives and 2nd opinion. She understands agrees. This will be scheduled within next week. Meanwhile advised her to stay of work and participate in stress mitigation strategies. Also advised her to start on metoprolol succinate 25 mg daily to reduce myocardial ischemic burden. Also start on low-dose aspirin therapy. She has said in the past she has had epistaxis before few years she has not had any epistaxis. Also will obtain echocardiogram to assess LV systolic and diastolic function to evaluate for hypertensive heart disease and pulmonary hypertension. Will follow up in the clinic after cardiac catheterization. Thank you for allowing me to partake in the care Orders: Orders CA echo transthoracic complete Today I20.89 - Other forms of angina pectoris Cardiac Cath LT w PCI 1 Week I20.89 - Other forms of angina pectoris Complete Blood Count no Diff Today I20.89 - Other forms of angina pectoris Prothrombin Time INR Today I20.89 - Other forms of angina pectoris Basic Metabolic Panel Today I20.89 - Other forms of angina pectoris Medications: New metoprolol succinate ER (Toprol XL) 25 mg PO DAILY 30 tabs 2RF I20.89 - Other forms of angina pectoris aspirin (Ecotrin Low Strength) 81 mg PO DAILY 30 tabs 2RF I20.89 - Other forms of angina pectoris Coding Level of Care Code New Pt Level 4 (40767) Diagnoses Atypical angina I20.89
== END 2023-09-05 13:31 | disposition home or self-care (01) ==
PROVIDERS: PCP Internal Medicine; Visit Provider Internal Medicine Cardiovascular Disease
DX: I20.89 Other forms of angina pectoris (principal)
CPT/HCPCS: 99204

== ENCOUNTER 2023-09-05 12:21 | Outpatient (REF) | payer OTHER, MEDICARE, SELFPAY | END 2023-09-05 12:22 | disposition home or self-care (01) | LOC: HO.LAB 12:21 | PROVIDERS: PCP Internal Medicine; Visit Provider Internal Medicine Cardiovascular Disease | DX: I20.89 Other forms of angina pectoris (principal) | CPT/HCPCS: 36415; 80048; 85027; 85610 ==

== ENCOUNTER → 2023-09-21 08:47 | Outpatient (REF) | payer OTHER, MEDICARE, SELFPAY ==
--- NOTE | 2023-09-21 08:50 | CA_ITS ---
Transthoracic Echocardiogram Patient (Last, First, Middle): Malia Joy, Gender: Female Date of : 1955 Age: 67 Procedure Date: 09/21/2023 Procedure Type: Transthoracic Echocardiogram Location: OP Height: 154.94 cm Weight: 73.94 kg BSA: 1.73 m2 Heart Rate: 81 bpm BP: 120 / 65 mmHg General Assistant: SUSY Referring MD: Davonte Mireles MD Symptoms: I20.89 - Other forms of angina pectoris Study Quality: Fair ECG Rhythm: Sinus Conclusions: - The left ventricular systolic function is normal. The calculated ejection fraction is 65% by biplane method. - No obvious valvular pathology seen on this study. Findings Left Ventricle Normal left ventricular cavity size. The left ventricular systolic function is normal. The calculated ejection fraction is 65% by biplane method. There is no evidence of regional wall motion abnormalities. Diastolic function is normal for age. There is mild septal asymmetric hypertrophy. LV peak GLS 17.7%. Right Ventricle Normal right ventricular cavity size and systolic function. Atria Both atria are normal in size. Aortic Valve There is a normal trileaflet aortic valve. There is no aortic valve stenosis. There is no aortic valve regurgitation. Mitral Valve The mitral valve appears normal. There is no mitral valve regurgitation. There is no mitral valve stenosis. Pulmonic Valve The pulmonic valve is likely normal. Tricuspid Valve There is trace tricuspid valve regurgitation. There is no evidence of pulmonary hypertension. Great Vessels The asc aorta is normal in size. Venous The inferior vena cava is normal in size and collapses greater than 50% with inspiration. Pericardium/Pleural There is no evidence of pericardial effusion. Prior Study Comparison No prior study available for comparison. Recommendations, Care & Conclusions No obvious valvular pathology seen on this study. Measurements 2D Linear Measurements IVSd: 1.15 0.6-0.9/0.6-1.0 cm LVIDd: 4.36 3.9-5.3/4.2-5.9 cm LVIDd Index: 2.52 2.4-3.2/2.2-3.1 cm/m2 LVIDs: 2.47 2.0-3.6 cm LVPWd: 1.00 0.7-1.1 cm LA Diam: 3.60 2.7-3.8/3.0-4.0 cm LAIDs Index: 2.08 1.5-2.3 cm/m2 LV Mass: 200.73 67-162/88-224 g LV Mass Index: 116.03 43-95/49-115 g/m2 LVOT Diam: 1.80 3.0+(-)1.3 cm 2D Systolic Function EF 4C: 61.90 >55% EF 2C: 68.20 >55% EF BiP: 65.20 >55% Mitral Valve MV Pk E: 0.65 MV PK A: 0.91 MV Decel Time: 236.00 E/A: 0.70 E'Lateral: 9.03 E'Medial: 6.64 E/E' Med: 9.70 E/E' Lat: 7.20 PHT: 69.00 MVA PHT: 3.19 Decel [place]: 2.74 Aortic Valve AoV Pk Paul: 1.59 AoV Mn Paul: 1.16 AoV VTI: 0.31 AoV Pk Grad: 10.00 Aov Mn Grad: 6.00 ANTONETTE Cont.VTI: 1.96 LVOT LVOT Pk Paul: 1.27 LVOT Mn Paul: 0.86 LVOT VTI: 0.24 LVOT Pk Grad: 6.00 LVOT Mn Grad: 3.00 LVOT Diam: 1.80 LVOT Area: 2.54 Diastolic Function MV Pk E: 0.65 MV Pk A: 0.91 E/A: 0.70 E'Medial: 6.64 E/E' Med: 9.70 E' Laterial: 9.03 E/E' Lat: 7.20 Right Ventricle TAPSE (mm): 18.70 TVS' Paul: 10.70 Tricuspid Valve TR Pk Paul: 2.05 TR Pk Grad: 17.00 RA Press: 3.00 RVSP: 20.00 Great Vessels Aorta Sinus of Valsalva: 3.30 2.0-3.5 cm Ao Asc: 3.40 2.1-3.4 cm Pulmonary Valve PV Pk Paul: 1.14 Peak PV Grad: 5.00 Updated in Other Vendor System with Status of Final Jonh Mohr MD electronically signed on 09/22/2023 2:54:56 PM with status of Final
== END ==
LOC: HO.CARD 08:47
PROVIDERS: PCP Internal Medicine; Visit Provider Internal Medicine Cardiovascular Disease
DX: I20.89 Other forms of angina pectoris (principal)
CPT/HCPCS: 93306; 93356

== ENCOUNTER → 2023-09-21 08:50 | Outpatient (BNV) | payer OTHER, MEDICARE, SELFPAY | PROVIDERS: PCP Internal Medicine; Visit Provider Internal Medicine | DX: I20.89 Other forms of angina pectoris (principal) | CPT/HCPCS: 93306 ==

== ENCOUNTER 2023-09-27 08:47 | Outpatient (AMB) | payer OTHER, MEDICARE, SELFPAY ==
--- NOTE | 2023-09-27 08:56 | A.OFFVIS_ITS ---
Intake Vital Signs 09/27/23 08:57 Height 5 ft 1 in Weight 163 lb 2.273 oz BMI 30.8 BP 120/62 Blood Pressure Location Lt brachial Position Sitting Pulse 78 Pulse Source Pulse Oximeter Intake Visit Reasons: 2 wk s/p cath Clinical Professor Required: No Allergies lisinopril Allergy (Unknown, Verified 09/27/23 08:59) cough [facility] Adverse Reaction (Verified 09/27/23 08:59) chills and sweats Medication List - Last Reconciled 09/27/23 by Yuridia Hernandez NP-C amlodipine 5 mg PO BID aspirin (Ecotrin Low Strength) 81 mg PO DAILY atorvastatin 40 mg PO DAILY glimepiride 2 mg PO DAILY hydrochlorothiazide 12.5 mg PO DAILY irbesartan 300 mg PO DAILY metformin 1,000 mg PO BID metoprolol succinate ER (Toprol XL) 25 mg PO DAILY omeprazole 20 mg PO DAILY HPI 2 wk s/p cath HPI Details Malia is a 68-year-old female past medical history of hypertension, hyperlipidemia who reported chest discomfort on last visit. She had undergone a nuclear stress test which was abnormal. She then underwent a cardiac catheterization and now presents for follow-up. Today she reports that she was having some mild upper chest area discomfort at times. She is unsure now if this may be related to doing lifting at work. 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 She is been out of work for the last few weeks and is currently reporting feeling well. She does have some GERD symptoms and will be seeing GI as well in the near future. Her right radial catheterization site is well healed. No shortness of breath, palpitation, presyncope, syncope, PND, orthopnea or edema. Taking all meds as directed. Home blood pressures reported as being in the normal range. [facility] Medical History Rash Dysphagia [place] of foot Annual physical exam Normal Pap smear Mammogram normal History of mammogram Osteoarthritis Type 2 diabetes mellitus Hyperlipidemia Hypertension Surgical History H/O colonoscopy No pertinent past surgical history Family History Father No problems noted. Mother No problems noted. Son No problems noted. Son No problems noted. Social History Housing: House Alcohol intake: never Patient Tobacco Use Status: Never used Tobacco e-Cigarette/Vaping Use: Never Used Current occupational status: employed Cognitive needs: No (wears glasses) Hearing needs: No Vision needs: Yes (wearing glasses ) Review of Systems Const All systems reviewed & are unremarkable except as noted in HPI and below ENT Denies dizziness Card Denies chest pain, Denies chest pain at rest, Denies chest pain with activity, Denies rapid heart rate, Denies pedal edema, Denies edema, Denies leg edema, Denies lightheadedness, Denies palpitations, Denies dyspnea, Denies dyspnea on exertion and Denies orthopnea Resp Denies cough, Denies dyspnea and Denies dyspnea on exertion GI Denies hematochezia and Denies change in stool character Musc Denies abnormal gait, Denies limited range of motion, Denies muscle cramps, Denies muscle weakness, Denies numbness, Denies radiating pain into limb, Denies stiffness and Denies tingling Neuro Denies abnormal gait, Denies dizziness, Denies numbness and Denies tingling Endo Denies palpitations Physical Exam Vital Signs: Last Vital Signs Pulse 78 09/27/23 08:57 BP 120/62 09/27/23 08:57 BMI result Body Mass Index 30.8 Const General: cooperative, healthy appearing, comfortable and no acute distress Orientation/consciousness: patient oriented x3 Neck Neck: Yes normal visual inspection Resp Effort & Inspection: normal respiratory effort Auscultation: clear to auscultation bilaterally, no crackles, no rales, no rhonchi and no wheezes Cardio Jugular venous distension: no JVD Rate: regular rate Rhythm: regular rhythm Heart sounds: S1 normal heart sound present, S2 normal heart sound present, no murmurs and no rubs Neuro General: patient oriented x3 Extrem General: Yes normal to inspection, No no pedal edema and No calf tenderness Psych Appearance: grossly normal Mental Status: mental status grossly normal Speech and movement: Normal speech and movement present Assessment & Plan Assessment & Plan (1) Chest pain: Code(s): R07.9 - Chest pain, unspecified Qualifiers: Chest pain type: precordial pain Qualified Code(s): R07.2 - Precordial pain Plan: Prior reports of anterior chest discomfort, random occurrence, nonexertional. Cardiac risk factors of hypertension, hyperlipidemia, age. She would an exercise stress test done on 08/09/2023 with exercise 7-1/2 minutes, mild shortness of breath and chest discomfort, no EKG changes, nuclear imaging showing mild ischemia in the distal LAD territory. She was on aspirin and atorvastatin. On last visit metoprolol was added. She was set up for a diagnostic cardiac catheterization which was done on 09/13/2023 showing only mild disease in the 1st diagonal. Today she reports that overall her symptom has lessened. She feels it may be related to lifting at work. 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 Also could be GI related and she has a upcoming appointment with GI for GERD symptoms. No evidence that this is angina. She reports no difference in the way she feels since starting metoprolol. Will have her stop metoprolol. Continue on aspirin and atorvastatin. Continue good blood pressure control with amlodipine, hydrochlorothiazide and irbesartan. Reviewed all the above with her in detail. Cardiology follow-up in 1 year, sooner if needed (2) S/P cardiac catheterization: Comment: 09/13/2023, left main normal, left circumflex and RCA normal, lad mild disease 1st diagonal. Code(s): Z98.890 - Other specified postprocedural states (3) Abnormal nuclear stress test: Code(s): R94.39 - Abnormal result of other cardiovascular function study Plan: As above. False abnormal (4) Hyperlipidemia: Code(s): E78.5 - Hyperlipidemia, unspecified Plan: [place] LDL goal less than 100. Labs done 07/25/2023 showed LDL 89. Continue on current atorvastatin. (5) Hypertension: Code(s): I10 - Essential (primary) hypertension Plan: [place] blood pressure goal less than 130/85. Currently well controlled. Continue amlodipine, hydrochlorothiazide, irbesartan. Will be stopping metoprolol Plan Time spent on chart review, documentation, interview and assessment Medications: Discontinued metoprolol succinate ER (Toprol XL) Discontinued Reason: Doctor's Order 25 mg PO DAILY 30 tabs 2RF I20.89 - Other forms of angina pectoris Coding Level of Care Code Est Pt Level 4 (20177) Diagnoses Precordial pain R07.2 Chest pain type: precordial pain S/P cardiac catheterization Z98.890 Abnormal nuclear stress test R94.39 Hyperlipidemia E78.5 Hypertension I10 Time Spent (min) 28
[2023-09-27 08:57] VITALS: BP 120/62; PULSE 78; BMI 30.8
== END 2023-09-27 09:34 | disposition home or self-care (01) ==
PROVIDERS: PCP Internal Medicine; Visit Provider Nurse Practitioner Family
DX: R07.2 Precordial pain (principal); Z98.890 Other specified postprocedural states; R94.39 Abnormal result of other cardiovascular function study; E78.5 Hyperlipidemia, unspecified; I10 Essential (primary) hypertension
CPT/HCPCS: 99214

== ENCOUNTER → 2023-09-27 08:47 | Outpatient (BNVA) | payer OTHER, MEDICARE, SELFPAY | PROVIDERS: PCP Internal Medicine; Visit Provider Nurse Practitioner Family ==

== ENCOUNTER 2023-10-03 12:54 | Outpatient (AMB) | payer OTHER, MEDICARE, SELFPAY ==
--- NOTE | 2023-10-03 12:57 | A.OFFVIS_ITS ---
Intake Vital Signs 10/03/23 13:00 Height 5 ft 1 in Weight 163 lb BMI 30.8 BP 142/73 H Blood Pressure Location Lt brachial Position Sitting Pulse 80 Intake Visit Reasons: Dysphagia Intake Note: Malia presents in the office as a new patient for dysphagia. CC: She is having issues swallowing and she feels like the food is not going down. She has pains in her esophagus that really effect her. Allergies lisinopril Allergy (Unknown, Verified 10/03/23 13:01) cough dulaglutide [[facility] Adverse Reaction (Verified 10/03/23 13:01) chills and sweats HPI Dysphagia HPI Details 68-year-old female with past medical his tory of hypertension, hyperlipidemia, diabetes, history of H pylori is here today for initial consultation. Patient was sent to us by her PCP for symptoms of dysphagia or odynophagia. Patient reports having these symptoms for the past few months now. Patient reports that when she eats sandwiches or when she eats hard food or meats she will have trouble swallowing and feels like food is getting stuck in her throat and upper esophagus. Patient reports that sometimes she will have pain when she is swallowing. Patient reports that she had history of H pylori in 2005 when she was living in [place]. Patient was treated with antibiotics for 2 weeks. Patient has not had upper endoscopy. Last colonoscopy about 9 years ago or so. Patient reports acid reflux epigastric burning postprandially. Patient was given script for omeprazole, took it for few weeks. Tested for H pylori in August while on PPI and tested negative. Her symptoms increased. Patient reports that she has been eating healthy. For the most part she eats whole wheat bread, fruits, vegetables. Patient does not eat food that is fried. Patient reports postprandial abdominal bloating, occasional epigastric pain and burning. Patient denies eating late at night her last meal is usually after 16:00 with small evening snack. Patient denies any nausea or vomiting. Reports that she usually moves her bowels, occasionally she might be constipated, howev er she tries to have a bowel movement every day. Patient denies melena, hematochezia, unintentional weight loss or ribbon like stools. [facility], [facility] Medical History Rash Dysphagia [place] of foot Annual physical exam Normal Pap smear Mammogram normal History of mammogram Osteoarthritis Type 2 diabetes mellitus Hyperlipidemia Hypertension Surgical History H/O colonoscopy No pertinent past surgical history Family History (Updated 10/03/23 @ 13:01 by BAILEY Billingsley) Father Lung cancer Mother No problems noted. Son No problems noted. Son No problems noted. Paternal Uncle Hx of colonoscopy Maternal Grandfather Stomach cancer Social History Housing: House Alcohol intake: never Patient Tobacco Use Status: Never used Tobacco e-Cigarette/Vaping Use: Never Used Current occupational status: employed Cognitive needs: No (wears glasses) Hearing needs: No Vision needs: Yes (wearing glasses ) Review of Systems Const Denies weight gain and Denies weight loss ENT Reports no additional complaints, Denies dysphagia and Denies odynophagia Card Reports no additional complaints Resp Reports no additional complaints GI Denies abdominal pain, Denies belching, Denies melena, Reports bloating, Denies change in bowel habits, Denies dysphagia, Denies excessive flatus, Reports dyspepsia, Reports heartburn, Denies diarrhea, Denies loose stools, Denies nausea, Denies odynophagia and Denies vomiting Reports no additional complaints Musc Reports no additional complaints Neuro Reports no additional complaints Psych Reports no additional complaints Endo Reports no additional complaints Physical Exam Vital Signs: Last Vital Signs Pulse 80 10/03/23 13:00 BP 142/73 H 10/03/23 13:00 BMI result Body Mass Index 30.8 Const General: healthy appearing, no acute distress and well developed Nutritional Appearance: obese Orientation/consciousness: patient oriented x3 Resp Effort & Inspection: normal respiratory effort, able to speak in complete sentences, no tracheal deviation and symmetric chest movement Auscultation: clear to auscultation bilaterally Cardio Rate: regular rate GI Inspection: Yes normal to inspection, No distended and Yes obesity Palpation (GI): Soft to palpation, not firm, nontender and No hepatosplenomegaly present Auscultation: normal bowel sounds General: Yes no CVA tenderness Back/Spine/Pelvis Back: no CVA tenderness Skin General skin exam: elasticity normal, turgor normal and dry skin Neuro General: patient oriented x3 Psych Appearance: grossly normal Mental Status: mental status grossly normal Assessment & Plan Assessment & Plan (1) Odynophagia: Code(s): R13.10 - Dysphagia, unspecified (2) Dysphagia: Code(s): R13.10 - Dysphagia, unspecified Qualifiers: Dysphagia type: pharyngoesophageal phase Qualified Code(s): R13.14 - Dysphagia, pharyngoesophageal phase (3) Postprandial epigastric pain: Code(s): R10.13 - Epigastric pain (4) GERD (gastroesophageal reflux disease): Code(s): K21.9 - Gastro-esophageal reflux disease without esophagitis Qualifiers: Esophagitis presence: esophagitis presence not specified Qualified Code(s): K21.9 - Gastro-esophageal reflux disease without esophagitis (5) Postprandial abdominal bloating: Code(s): R14.0 - Abdominal distension (gaseous) (6) Constipation: Code(s): K59.00 - Constipation, unspecified Qualifiers: Constipation type: slow transit constipation Qualified Code(s): K59.01 - Slow transit constipation Plan Patient will start taking pantoprazole in the morning half an hour before breakfast. H pylori breath test in the office today, will treat empirically if positive. Patient will go for barium swallow to see if reflux might be causing dysphagia. Patient does report epigastric burning and reflux postprandially. Patient will change her diet to no lactose and avoid gluten. Patient will switch from whole wheat bread to sour does breath. Discussed with patient low FODMAP diet. List of food recommended as well as list of food to avoid given to patient in Hebrew language. Will check transglutaminase to rule out celiac. Will check thyroid study, occasional constipation. Patient does report occasional loose stools will check for vitamin B12, folate, vitamin-D level. Occasional left upper quadrant discomfort and bloating will check lipase. I will see patient in 5 weeks to re-evaluate and discuss lab results and barium swallow. We will discuss going for upper endoscopy and possible colonoscopy. Patient is agreeable to this plan and verbalizes understanding of instructions. She was given the opportunity to ask questions and all questions answered. Thank you for allowing me to participate in her care Orders: Orders Transglutaminase IgA Today R10.9 - Unspecified abdominal pain Vitamin B12 and Folate Today R19.7 - Diarrhea, unspecified Vitamin D 25-OH (D2 and D3) Today E55.9 - Vitamin D deficiency, unspecified Lipase Today R10.9 - Unspecified abdominal pain H Pylori Breath Test Today Transglutaminase Ab IgG Today R10.9 - Unspecified abdominal pain TSH reflex Free T4 Today K59.00 - Constipation, unspecified [place] barium swallow Today R13.10 - Dysphagia, unspecified Medications: New pantoprazole take one tablet half an hour before breakfast 40 mg PO DAILY 30 tabs 2RF K21.9 - Gastro-esophageal reflux disease without esophagitis Discontinued omeprazole Discontinued Reason: Doctor's Order 20 mg PO DAILY 30 caps 2RF Coding Level of Care Code New Pt Level 4 (14077) Diagnoses Odynophagia R13.10 Pharyngoesophageal dysphagia R13.14 Dysphagia type: pharyngoesophageal phase Postprandial epigastric pain R10.13 Gastroesophageal reflux disease, unspecified whether esophagitis present K21.9 Esophagitis presence: esophagitis presence not specified Postprandial abdominal bloating R14.0 Slow transit constipation K59.01 Constipation type: slow transit constipation Time Spent (min) 45 Comment 30 minutes spent with patient and additional 15 minutes spent reviewing her records
[2023-10-03 13:00] VITALS: BP 142/73; PULSE 80; BMI 30.8
== END 2023-10-03 13:53 | disposition home or self-care (01) ==
PROVIDERS: PCP Internal Medicine; Visit Provider Nurse Practitioner Family
DX: R13.10 Dysphagia, unspecified (principal); R13.14 Dysphagia, pharyngoesophageal phase; R10.13 Epigastric pain; K21.9 Gastro-esophageal reflux disease without esophagitis; R14.0 Abdominal distension (gaseous); K59.01 Slow transit constipation
CPT/HCPCS: 99204

== ENCOUNTER 2023-10-03 12:54 | Outpatient (REF) | payer OTHER, MEDICARE, SELFPAY ==
[2023-10-03 15:21] LABS: Lipase 41 U/L (8-78)
[2023-10-03 15:31] LABS: TSH reflex Free T4 0.37 uIU/mL (0.32-4.0)
[2023-10-03 15:42] LABS: Folate 8.5 ng/mL (> or = 4.0); Vitamin B12 697 pg/mL (200-900)
[2023-10-04 18:43] LABS: Transglutaminase Ab IgG <1.0 U/mL; Transglutaminase IgA <1.0 U/mL
[2023-10-07 14:08] LABS: Vitamin D 25-OH, D2 <4 ng/mL; Vitamin D 25-OH, D3 16 ng/mL; Vitamin D 25-OH, Total 16 ng/mL (30-100)
== END 2023-10-03 12:55 | disposition home or self-care (01) ==
LOC: HO.LAB 12:54
PROVIDERS: PCP Internal Medicine; Visit Provider Nurse Practitioner Family
DX: R10.9 Unspecified abdominal pain (principal); E55.9 Vitamin D deficiency, unspecified; K59.00 Constipation, unspecified; R19.7 Diarrhea, unspecified; R13.10 Dysphagia, unspecified
CPT/HCPCS: 36415; 82306; 82607; 82746; 83690; 84443; 86364

== ENCOUNTER 2023-10-04 14:03 | Outpatient (REF) | payer OTHER, MEDICARE, SELFPAY ==
[2023-10-06 13:31] LABS: H Pylori Breath Test Negative (Negative)
== END 2023-10-04 14:04 | disposition home or self-care (01) ==
LOC: HO.LNP 14:03
PROVIDERS: Visit Provider Nurse Practitioner Family
DX: Z11.2 Encounter for screening for other bacterial diseases (principal)
CPT/HCPCS: 83013

== ENCOUNTER 2023-10-30 07:05 | Outpatient (REF) | payer OTHER, MEDICARE, SELFPAY ==
[2023-10-30 10:17] LABS: MANUAL DIFF FLAG NO
[2023-10-30 10:39] LABS: Basophils Absolute Auto 0.1 X10*3/uL (0.0-0.2); Basophils Percent Auto 0.7 % (0-2); Eosinophils Percent Auto 0.4 % (0-4); Hematocrit 42.1 % (37.0-47.0); Hemoglobin 13.5 g/dl (12.0-16.0); Imm Gran Abs Auto 0.02 X10*3/uL (0.00-0.03); Imm Gran Pct Auto 0.3 % (0.0-0.4); Lymphocytes Absolute Auto 1.9 X10*3/uL (1.2-4.9); Mean Corpuscular HGB Conc 32.1 g/dl (31.0-35.0); Mean Corpuscular Hemoglobin 26.5 pg (27.0-33.0); Mean Corpuscular Volume 82.5 fL (80.0-98.0); Mean Platelet Volume 10.8 fL (9.4-12.3); Monocytes Absolute Auto 0.5 X10*3/uL (0.1-1.2); Monocytes Percent Auto 7.2 % (2-11); Neutrophils Percent Auto 66.4 % (45-73); Platelet Count 294 X10*3/uL (160-400); Red Cell Distribution Width 14.9 % (11.0-16.0); White Blood Count 7.5 X10*3/uL (4.8-10.8)
[2023-10-30 10:47] LABS: Alanine Aminotransferase 29 U/L (0-31); Albumin Level 4.3 g/dL (3.5-5.0); Alkaline Phosphatase 94 U/L (39-117); Anion Gap 12 (12-20); Aspartate Amino Transferase 20 U/L (5-31); Bilirubin Total 0.5 mg/dL (0.0-1.0); Blood Urea Nitrogen 17 mg/dL (9-16); Calcium 10.1 mg/dL (8.4-10.2); Carbon Dioxide 28 mmol/L (22-29); Chloride 102 mmol/L (96-108); Cholesterol 165 mg/dL (<200); Estimated Glomerular Filt Rate > 60; Glucose Fasting 130 mg/dL (60-99); HDL Cholesterol 59 mg/dL (>40); LDL Cholesterol Calculated 90 mg/dL (<100); Potassium 4.8 mmol/L (3.3-5.1); Sodium 137 mmol/L (135-145); Total Protein 7.9 g/dL (6.5-8.0); Triglycerides 83 mg/dL (<150)
[2023-10-30 16:16] LABS: Estimated Average Glucose 137 mg/dL; Hemoglobin A1c % 6.4 % (<6.0)
== END 2023-10-30 07:06 | disposition home or self-care (01) ==
LOC: HO.HMGCLDS 07:05
PROVIDERS: PCP Internal Medicine; Visit Provider Internal Medicine
DX: E11.9 Type 2 diabetes mellitus without complications (principal); E78.5 Hyperlipidemia, unspecified; I10 Essential (primary) hypertension
CPT/HCPCS: 36415; 80053; 80061; 82043; 82570; 83036; 85025

== ENCOUNTER 2023-11-07 12:48 | Outpatient (AMB) | payer OTHER, MEDICARE, SELFPAY ==
--- NOTE | 2023-11-07 12:53 | A.OFFVIS_ITS ---
Intake Vital Signs 11/07/23 12:54 Height 5 ft 1 in Weight 163 lb 2.273 oz BMI 30.8 BP 130/64 Blood Pressure Location Lt brachial Position Sitting Pulse 82 Intake Visit Reasons: 5 week follow up Intake Note: Malia presents in the office as a 5 week follow up. CC: She states that she is not having any concerns - everything is the same. Gear Lapper Required: No Allergies lisinopril Allergy (Unknown, Verified 11/07/23 13:06) cough dulaglutide [From Trulicity] Adverse Reaction (Verified 11/07/23 13:06) chills and sweats HPI 5 week follow up HPI Details LAST VISIT Odynophagia Dysphagia Postprandial epigastric pain GERD (gastroesophageal reflux disease) Postprandial abdominal bloating Constipation Plan Patient will start taking pantoprazole in the morning half an hour before breakfast. H pylori breath test in the office today, will treat empirically if positive. Patient will go for barium swallow to see if reflux might be causing dysphagia. Patient does report epigastric burning and reflux postprandially. Patient will change her diet to no lactose and avoid gluten. Patient will switch from whole wheat bread to sour does breath. Discussed with patient low FODMAP diet. List of food recommended as well as list of food to avoid given to patient in Senegalese language. Will check transglutaminase to rule out celiac. Will check thyroid study, occasional constipation. Patient does report occasional loose stools will check for vitamin B12, folate, vitamin-D level. Occasional left upper quadrant discomfort and bloating will check lipase. I will see patient in 5 weeks to re-evaluate and discuss lab results and barium swallow. We will discuss going for upper endoscopy and possible colonoscopy. Patient is agreeable to this plan and verbalizes understanding of instructions. She was given the opportunity to ask questions and all questions answered. ? Thank you for allowing me to participate in her care Orders Orders Transglutaminase IgA Today R10.9 Vitamin B12 and Folate Today R19.7 Vitamin D 25-OH (D2 and D3) Today E55.9 Lipase Today R10.9 H Pylori Breath Test Today Transglutaminase Ab IgG Today R10.9 TSH reflex Free T4 Today K59.00 FL barium swallow Today R13.10 Medications New pantoprazole take one tablet half an hour before breakfast 40 mg PO DAILY 30 tabs 2RF K21.9 Discontinued omeprazole Discontinued Reason: Doctor's Order 20 mg PO DAILY 30 caps 2RF TODAY'S VISIT: Patient is here today for follow-up and to discuss lab results. Patient had normal labs, no H pylori, we ruled out celiac. Patient has appointment for barium swallow end of this month. Started taking pantoprazole and changed her diet and is feeling better. However patient reports that yesterday she had epigastric discomfort after eating tomato soup. Patient otherwise denies any dyspepsia, dysphagia or odynophagia. Patient denies any nausea or vomiting. Diet modification PFSH Medical History Rash Dysphagia [place] of foot Annual physical exam Normal Pap smear Mammogram normal History of mammogram Osteoarthritis Type 2 diabetes mellitus Hyperlipidemia Hypertension Surgical History H/O colonoscopy No pertinent past surgical history Family History Father Lung cancer Mother No problems noted. Son No problems noted. Son No problems noted. Paternal Uncle Hx of colonoscopy Maternal Grandfather Stomach cancer Social History Housing: House Alcohol intake: never Patient Tobacco Use Status: Never used Tobacco e-Cigarette/Vaping Use: Never Used Current occupational status: employed Cognitive needs: No (wears glasses) Hearing needs: No Vision needs: Yes (wearing glasses ) Review of Systems Const Denies weight gain and Denies weight loss ENT Reports no additional complaints, Denies dysphagia and Denies odynophagia Card Reports no additional complaints Resp Reports no additional complaints GI Denies abdominal pain, Denies belching, Denies melena, Denies bloating, Denies change in bowel habits, Denies dysphagia, Denies excessive flatus, Denies dyspepsia, Reports heartburn (Improved), Denies diarrhea, Denies loose stools, Denies nausea, Denies odynophagia and Denies vomiting Musc Reports no additional complaints Neuro Reports no additional complaints Psych Reports no additional complaints Endo Reports no additional complaints Physical Exam Vital Signs: Last Vital Signs Pulse 82 11/07/23 12:54 BP 130/64 11/07/23 12:54 BMI result Body Mass Index 30.8 Const General: healthy appearing, no acute distress and well developed Nutritional Appearance: obese Orientation/consciousness: patient oriented x3 Resp Effort & Inspection: normal respiratory effort, able to speak in complete sentences, no tracheal deviation and symmetric chest movement Auscultation: clear to auscultation bilaterally Cardio Rate: regular rate GI Inspection: Yes normal to inspection, No distended and Yes obesity Palpation (GI): Soft to palpation, not firm, nontender and No hepatosplenomegaly present Auscultation: normal bowel sounds General: Yes no CVA tenderness Back/Spine/Pelvis Back: no CVA tenderness Skin General skin exam: elasticity normal, turgor normal and dry skin Neuro General: patient oriented x3 Psych Appearance: grossly normal Mental Status: mental status grossly normal Assessment & Plan Assessment & Plan (1) Odynophagia: Code(s): R13.10 - Dysphagia, unspecified (2) Dysphagia: Code(s): R13.10 - Dysphagia, unspecified Qualifiers: Dysphagia type: pharyngoesophageal phase Qualified Code(s): R13.14 - Dysphagia, pharyngoesophageal phase (3) Postprandial epigastric pain: Code(s): R10.13 - Epigastric pain (4) GERD (gastroesophageal reflux disease): Code(s): K21.9 - Gastro-esophageal reflux disease without esophagitis Qualifiers: Esophagitis presence: esophagitis presence not specified Qualified Code(s): K21.9 - Gastro-esophageal reflux disease without esophagitis (5) Postprandial abdominal bloating: Code(s): R14.0 - Abdominal distension (gaseous) (6) Constipation: Code(s): K59.00 - Constipation, unspecified Qualifiers: Constipation type: slow transit constipation Qualified Code(s): K59.01 - Slow transit constipation Plan Continue pantoprazole. Continue avoiding dietary triggers late night snacking. Staying upright for minimum 3 hours after meals discussed with patient. Patient will return in 6 months so we can discuss going for colonoscopy and upper endoscopy. Patient is agreeable to current plan and verbalizes understanding of instructions. She was given the opportunity to ask questions and all questions answered. Thank you for allowing me to participate in her care Coding Level of Care Code Est Pt Level 4 (61707) Diagnoses Odynophagia R13.10 Pharyngoesophageal dysphagia R13.14 Dysphagia type: pharyngoesophageal phase Postprandial epigastric pain R10.13 Gastroesophageal reflux disease, unspecified whether esophagitis present K21.9 Esophagitis presence: esophagitis presence not specified Postprandial abdominal bloating R14.0 Slow transit constipation K59.01 Constipation type: slow transit constipation Time Spent (min) 35 Comment 20 minutes spent with patient and additional 15 minutes spent reviewing her records
[2023-11-07 12:54] VITALS: BP 130/64; PULSE 82; BMI 30.8
== END 2023-11-07 13:31 | disposition home or self-care (01) ==
PROVIDERS: PCP Internal Medicine; Visit Provider Nurse Practitioner Family
DX: R13.10 Dysphagia, unspecified (principal); R13.14 Dysphagia, pharyngoesophageal phase; R10.13 Epigastric pain; K21.9 Gastro-esophageal reflux disease without esophagitis; R14.0 Abdominal distension (gaseous); K59.01 Slow transit constipation
CPT/HCPCS: 99214

== ENCOUNTER → 2023-11-07 12:48 | Outpatient (BNVA) | payer OTHER, MEDICARE, SELFPAY | PROVIDERS: PCP Internal Medicine; Visit Provider Nurse Practitioner Family ==

== ENCOUNTER 2023-12-18 10:17 | Outpatient (AMB) | payer OTHER, MEDICARE, SELFPAY ==
[2023-12-18 10:21] VITALS: BP 118/66; PULSE 84; O2SAT 96; BMI 31.0
--- NOTE | 2023-12-18 10:21 | A.OFFPC_ITS ---
Vital Signs 12/18/23 10:21 Height 5 ft 1 in Weight 164 lb BMI 31.0 BP 118/66 Blood Pressure Location Rt brachial Position Sitting Pulse 84 Pulse Source Pulse Oximeter Pulse Oximetry (%) 96 Oxygen Delivery Method Room Air Intake Visit Reasons: 3 month follow up resched Intake Note: Pt is here today for a follow up visit on labs. Allergies lisinopril Allergy (Unknown, Verified 12/18/23 10:23) cough dulaglutide [[facility] Adverse Reaction (Verified 12/18/23 10:23) chills and sweats Medication List - Last Reconciled 12/18/23 by Nat Cotton MD amlodipine 5 mg PO BID atorvastatin 40 mg PO DAILY cholecalciferol (vitamin D3) 50 mcg PO DAILY glimepiride 2 mg PO DAILY hydrochlorothiazide 12.5 mg PO DAILY irbesartan 300 mg PO DAILY metformin 1,000 mg PO BID pantoprazole 40 mg PO DAILY Tobacco use date assessed: 12/18/23 Fall risk assessment: No Falls in past year Last assessed Fall Risk: 12/18/23 Dental Screening Dental Screen Date: 12/18/23 Did you have a dental visit in the last 12 months?: Yes Did you have a dental problem in the last 6 months where you did not have access to dental care?: No Was dental information given to patient?: Patient has dentist HPI 3 month follow up resched HPI Details Pt presents for f/u DM 2,HTN, hyperlipid, stable on meds. For abnormal nuclear stress test patient underwent coronary angiogram which was negative. Patient reports persistent intermittent epigastric abdominal discomfort occasional mid chest discomfort not related to food intake lasting a few minutes. Patient is concerned about the pain because of family history of gastric cancer and would like to have EGD. She has been drinking flaxseed with some relief. Patient denies hematochezia melena nausea vomiting odynophagia or dysphagia. [facility] Medical History (Updated 12/18/23 @ 10:58 by Nat Cotton MD) Rash Dysphagia [place] of foot Annual physical exam Normal Pap smear Mammogram normal History of mammogram Osteoarthritis Type 2 diabetes mellitus Hyperlipidemia Hypertension Surgical History H/O colonoscopy No pertinent past surgical history Family History Father Lung cancer Mother No problems noted. Son No problems noted. Son No problems noted. Paternal Uncle Hx of colonoscopy Maternal Grandfather Stomach cancer Social History Housing: House Alcohol intake: never Patient Tobacco Use Status: Never used Tobacco e-Cigarette/Vaping Use: Never Used service: No Current occupational status: employed Cognitive needs: No (wears glasses) Hearing needs: No Vision needs: Yes (wearing glasses ) Questionnaire PHQ-9 Over the last 2 weeks, how often have you been bothered by any of the following problems? 1. Little interest or pleasure in doing things: not at all 2. Feeling down, depressed, or hopeless: not at all 3. Trouble falling or staying asleep, or sleeping too much: not at all 4. Feeling tired or having little energy: not at all 5. Poor appetite or overeating: not at all 6. Feeling bad about yourself - or that you are a failure or have let yourself or your family down: not at all 7. Trouble concentrating on things, such as reading the newspaper or watching television: not at all 8. Moving or speaking so slowly that other people could have noticed. Or the opposite - being so fidgety or restless that you have been moving around a lot more than usual: not at all 9. Thoughts that you would be better off or of hurting yourself in some way: not at all Total score: 0 Depression Screening Interpretation: Negative Depression Screening Done: Yes Source: Developed by Drs. Mikhail Baca, Julienne Murrell, Brian Scott and colleagues, with an educational patrick from [employer]. Thrive Questionnaire Date Thrive assessed: 12/18/23 I am a: Patient What is your living situation today?: I have a steady place to live Within the past 12 months, did the food you bought not last and you didn't have the money to get more?: Never true Within the past 12 months, did you worry whether your food would run out before you got money to buy more?: Never true Do you have trouble paying for medicines?: No Do you have trouble getting transportation to medical appointments?: No Do you have trouble paying your heating and electricity bill?: No Do you have trouble taking care of your child, family member or friend?: No Do you have trouble with day-to-day activities such as bathing, preparing meals, shopping, managing finances, etc.?: No Are you currently unemployed and looking for a job?: No Are you interested in more education?: No Please select the resources that you would like help with: None THRIVE Score: 0 ODESSA-7 AMB Questionnaire ODESSA-7 Date ODESSA - 7 assessed: 12/29/21 Feeling nervous, anxious, or on edge: 0 = Not at all Not being able to stop or control worryin = Not at all Worrying too much about different things: 0 = Not at all Trouble relaxin = Not at all Being so restless that it is hard to sit still: 0 = Not at all Becoming easily annoyed or irritable: 0 = Not at all Feeling afraid as if something awful might happen: 0 = Not at all Total ODESSA-7 score (0-4 normal; 5-9 mild; 10-14 moderate; 15-21 severe): 0 Source: Developed by Drs. Mikhail Baca, Julienne Murrell, Brian Scott and colleagues, with an educational patrick from [employer]. Review of Systems Const All systems reviewed & are unremarkable except as noted in HPI and below Reports no additional complaints Eyes Reports no additional complaints ENT Reports no additional complaints Card Reports no additional complaints Resp Reports no additional complaints GI Reports no additional complaints Reports no additional complaints Physical exam (Primary Care) Vital Signs: Last Vital Signs Pulse 84 12/18/23 10:21 BP 118/66 12/18/23 10:21 Pulse Ox 96 12/18/23 10:21 Oxygen Delivery Method Room Air 12/18/23 10:21 BMI result Body Mass Index 31.0 Tobacco/Smoking Status: Tobacco use Status Tobacco use date assessed 12/18/23 12/18/23 10:26 Patient Tobacco Use Status Never used Tobacco 12/18/23 10:26 e-Cigarette/Vaping Use Never Used 12/18/23 10:25 PHQ-9: PHQ-9 Score PHQ-9: Total score 0 12/18/23 10:26 Depression Screening Interpretation: Negative Thrive Assessment: Date of Thrive Assessment Date Thrive assessed 12/18/23 12/18/23 10:26 Const General: no acute distress HENMT Head: Yes normal to inspection Throat: Yes posterior oropharynx normal Neck Neck: Yes supple Resp Effort & Inspection: normal respiratory effort Auscultation: clear to auscultation bilaterally Cardio Rhythm: regular rhythm Heart sounds: S1 normal heart sound present and S2 normal heart sound present GI Inspection: Yes normal to inspection Palpation (GI): Soft to palpation, nontender and No Rebound tenderness present Percussion: Yes normal to percussion Auscultation: normal bowel sounds Assessment and Plan Assessment & Plan (1) S/P cardiac catheterization: Comment: 09/13/2023, left main normal, left circumflex and RCA normal, lad mild disease 1st diagonal. Code(s): Z98.890 - Other specified postprocedural states (2) Type 2 diabetes mellitus: Comment: Insurance did not cover Farxiga or Jardiance, Trulicity caused hypoglycemia and tremor Code(s): E11.9 - Type 2 diabetes mellitus without complications Plan: A1C is 6.4, ADA diet, cont meds. (3) Hypertension: Code(s): I10 - Essential (primary) hypertension Plan: cont meds (4) Hyperlipidemia: Code(s): E78.5 - Hyperlipidemia, unspecified Plan: Continue statin (5) Epigastric abdominal pain: Code(s): R10.13 - Epigastric pain Plan: Patient was advised to try [id number] Pepcid and will discuss EGD with GI. She will have a screening colonoscopy this year. Orders: Orders Comprehensive [place]. Panel Fast 3 Months E11.9 - Type 2 diabetes mellitus without complications, E78.5 - Hyperlipidemia, unspecified, I10 - Essential (primary) hypertension Lipid Panel 3 Months E11.9 - Type 2 diabetes mellitus without complications, E78.5 - Hyperlipidemia, unspecified, I10 - Essential (primary) hypertension XR DEXA axial skeleton Today E11.9 - Type 2 diabetes mellitus without complications, E78.5 - Hyperlipidemia, unspecified, I10 - Essential (primary) hypertension Hemoglobin A1c 3 Months E11.9 - Type 2 diabetes mellitus without complications, E78.5 - Hyperlipidemia, unspecified, I10 - Essential (primary) hypertension Vitamin D 25-OH Total 3 Months E11.9 - Type 2 diabetes mellitus without complications, E78.5 - Hyperlipidemia, unspecified, I10 - Essential (primary) hypertension Microalbumin, Random (w Creat) 3 Months E11.9 - Type 2 diabetes mellitus without complications, E78.5 - Hyperlipidemia, unspecified, I10 - Essential (primary) hypertension Coding Level of Care Code Est Pt Level 4 (60915) Diagnoses S/P cardiac catheterization Z98.890 Type 2 diabetes mellitus E11.9 Hypertension I10 Hyperlipidemia E78.5 Epigastric abdominal pain R10.13
== END 2023-12-18 10:55 | disposition home or self-care (01) ==
PROVIDERS: PCP Internal Medicine; Visit Provider Internal Medicine
DX: Z98.890 Other specified postprocedural states (principal); E11.9 Type 2 diabetes mellitus without complications; I10 Essential (primary) hypertension; E78.5 Hyperlipidemia, unspecified; R10.13 Epigastric pain
CPT/HCPCS: 99214

== ENCOUNTER 2024-02-27 12:38 | Outpatient (AMB) | payer OTHER, MEDICARE, SELFPAY ==
[2024-02-27 12:57] VITALS: BP 122/66; PULSE 86; O2SAT 98; BMI 31.2
--- NOTE | 2024-02-27 12:57 | A.OFFPC_ITS ---
Vital Signs 02/27/24 12:57 Height 5 ft 1 in Weight 165 lb BMI 31.2 BP 122/66 Blood Pressure Location Lt brachial Position Sitting Pulse 86 Pulse Source Pulse Oximeter Pulse Oximetry (%) 98 Oxygen Delivery Method Room Air Intake Visit Reasons: Coughing a lot Intake Note: Pt is here today for a [facility] visit. Pt c/o bronchitis since end of the January. Pt states that she was seen in Urgent care twice and was on Prednisone twice and she still has the cough. Allergies lisinopril Allergy (Unknown, Verified 02/27/24 12:57) cough [facility] Adverse Reaction (Verified 02/27/24 12:57) chills and sweats Medication List - Last Reconciled 02/27/24 by Nat Cotton MD albuterol sulfate 90 mcg/actuation 2 puffs inhalation Q6H PRN amlodipine 5 mg PO BID atorvastatin 40 mg PO DAILY cholecalciferol (vitamin D3) 50 mcg PO DAILY fexofenadine 180 mg PO DAILY glimepiride 2 mg PO DAILY hydrochlorothiazide 12.5 mg PO DAILY irbesartan 300 mg PO DAILY metformin 1,000 mg PO BID pantoprazole 40 mg PO DAILY prednisone 40 mg PO DAILY Tobacco use date assessed: 12/18/23 Dental Screening Dental Screen Date: 12/18/23 HPI Coughing a lot HPI Details PATIENT PRESENTS COMPLAINING OF PERSISTENT PRODUCTIVE COUGH SINCE THE END OF JANUARY. SHE WAS SEEN TWICE AT URGENT CARE AND WAS PRESCRIBED PREDNISONE TWICE WITH ALBUTEROL AND LAURIE. Patient has not noticed any improvement in her symptoms she complains of night sweats, fatigue dyspnea on exertion. Patient denies pleurisy. She complains of chronic GERD and dysphagia to solids despite taking pantoprazole for months. She denies odynophagia nausea vomiting hematochezia melena or weight loss. [facility] Medical History (Updated 02/27/24 @ 13:27 by Nat Cotton MD) Rash Dysphagia [place] of foot Annual physical exam Normal Pap smear Mammogram normal History of mammogram Osteoarthritis Type 2 diabetes mellitus Hyperlipidemia Hypertension Surgical History H/O colonoscopy No pertinent past surgical history Family History Father Lung cancer Mother No problems noted. Son No problems noted. Son No problems noted. Paternal Uncle Hx of colonoscopy Maternal Grandfather Stomach cancer Social History Housing: House Alcohol intake: never Patient Tobacco Use Status: Never used Tobacco e-Cigarette/Vaping Use: Never Used service: No Current occupational status: employed Cognitive needs: No (wears glasses) Hearing needs: No Vision needs: Yes (wearing glasses ) Questionnaire Thrive Questionnaire Date Thrive assessed: 12/18/23 ODESSA-7 AMB Questionnaire ODESSA-7 Date ODESSA - 7 assessed: 12/29/21 Source: Developed by Drs. Mikhail Baca, Julienne Murrell, Brian Scott and colleagues, with an educational patrick from [employer]. Review of Systems Const All systems reviewed & are unremarkable except as noted in HPI and below Eyes Reports no additional complaints ENT Reports no additional complaints Card Reports no additional complaints Resp Reports no additional complaints GI Reports no additional complaints Reports no additional complaints Physical exam (Primary Care) Vital Signs: Last Vital Signs Pulse 86 02/27/24 12:57 BP 122/66 02/27/24 12:57 Pulse Ox 98 02/27/24 12:57 Oxygen Delivery Method Room Air 02/27/24 12:57 BMI result Body Mass Index 31.2 Tobacco/Smoking Status: Tobacco use Status Tobacco use date assessed 12/18/23 02/27/24 13:01 Patient Tobacco Use Status Never used Tobacco 02/27/24 13:01 e-Cigarette/Vaping Use Never Used 02/27/24 13:01 Thrive Assessment: Date of Thrive Assessment Date Thrive assessed 12/18/23 02/27/24 13:01 Const General: no acute distress HENMT Head: Yes normal to inspection Face and sinus: Yes normal facial exam and No sinus tenderness Mouth: oropharynx normal Throat: Yes postnasal drainage Eyes General: appearance normal, both eyes and all related structures Neck Neck: Yes supple Resp Effort & Inspection: normal respiratory effort Auscultation: diminished lung sounds on the right (base) Cardio Rhythm: regular rhythm Heart sounds: S1 normal heart sound present and S2 normal heart sound present GI Inspection: Yes normal to inspection Palpation (GI): Soft to palpation Percussion: Yes normal to percussion Assessment and Plan Assessment & Plan (1) Dysphagia: Code(s): R13.10 - Dysphagia, unspecified Qualifiers: Dysphagia type: pharyngoesophageal phase Qualified Code(s): R13.14 - Dysphagia, pharyngoesophageal phase Plan: For chronic GERD with worsening dysphagia patient will be referred to GI to discuss EGD. She will continue PPI and antegrade diet (2) GERD (gastroesophageal reflux disease): Code(s): K21.9 - Gastro-esophageal reflux disease without esophagitis (3) Cough: Code(s): R05.9 - Cough, unspecified Plan: Doxycycline for 10 days and Tessalon Perles prescribed and supportive care discussed with the patient (4) Hypertension: Code(s): I10 - Essential (primary) hypertension Plan: Continue current medications Orders: Referrals Gastroenterology Referral K21.9 - Gastro-esophageal reflux disease without esophagitis, R13.14 - Dysphagia, pharyngoesophageal phase Medications: New doxycycline hyclate 100 mg PO BID 20 tabs 0RF benzonatate 100 mg PO TID 30 caps 0RF Coding Level of Care Code Est Pt Level 3 (43252) Diagnoses Pharyngoesophageal dysphagia R13.14 Dysphagia type: pharyngoesophageal phase GERD (gastroesophageal reflux disease) K21.9 Cough R05.9 Hypertension I10
== END 2024-02-27 13:34 | disposition home or self-care (01) ==
PROVIDERS: PCP Internal Medicine; Visit Provider Internal Medicine
DX: R13.14 Dysphagia, pharyngoesophageal phase (principal); K21.9 Gastro-esophageal reflux disease without esophagitis; R05.9 Cough, unspecified; I10 Essential (primary) hypertension
CPT/HCPCS: 99213

== ENCOUNTER 2024-03-05 07:43 | Outpatient (REF) | payer OTHER, MEDICARE, SELFPAY ==
--- NOTE | ~2024-03-05 | MM_ITS ---
EXAMINATION: BONE DENSITOMETRY CLINICAL INDICATION: Essential, primary, hypertension. COMPARISON: This is the patient's baseline examination. TECHNIQUE: Using a First Class EV Conversions DXA System (software version: 13.1) manufactured by [employer], dual-energy x-ray absorptiometry was performed of the lumbar spine and left hip. The images are of good technical quality. Summary results are attached. FINDINGS: LEFT FEMUR, NECK: BMD 0.686 g/cm2, Z-score -1.1, T-score -2.5, osteoporosis. LEFT FEMUR, TOTAL: BMD 0.811 g/cm2, Z-score -0.4, T-score -1.6, osteopenia. AP SPINE L1-L4: BMD 0.844 g/cm2, Z-score -1.3, T-score -2.8, osteoporosis. IDENTIFIED RISK FACTORS: Menopause, thiazide. HISTORY OF FRACTURE: None listed. MEDICATIONS: Vitamin D. MM/XR DEXA axial skeleton IMPRESSION: 1. DIAGNOSIS: Osteoporosis based on the lowest T-score value of -2.8 in the lumbar spine applying World Health Organization criteria. 2. 10-YEAR FRACTURE RISK PREDICTION, FRAX: According to the guidelines, FRAX calculation should only be performed on patients in the osteopenia bone density category. Therefore, FRAX was not performed on this patient. 3. Treatment Recommendations: NOF guidelines recommend consideration for treatment in postmenopausal women and men age 50 and older presenting with the following: -A hip or vertebral (clinical or morphometric) fracture. -T-score less than or equal to -2.5 at the femoral neck or spine after appropriate evaluation to exclude secondary causes. -Low bone mass at the hip or spine and a 10-year fracture probability by FRAX of greater than or equal to 3% for hip fracture or greater than or equal to 20% for major osteoporotic fracture based on the [place] adapted WHO algorithm. 4. Other Recommendations: All treatment decisions require clinical judgment and consideration of individual patient factors, including patient preferences, comorbidities, previous drug use, risk factors not captured in the FRAX model (e.g. frailty, falls, vitamin D deficiency, increased bone turnover, interval significant decline in bone density) and possible under or overestimation of fracture risk by FRAX. Additional medical evaluation for secondary cause of low bone mineral density may be appropriate. FUTURE SCAN RECOMMENDATION: People with diagnosed cases of osteoporosis or at high risk for fracture should have regular bone mineral density tests. For patients eligible for Medicare, routine testing is allowed once every 2 years. The testing frequency can be increased to one year for patients who have rapidly progressing disease, those who are receiving or discontinuing medical therapy to restore bone mass, or have additional risk factors.
== END 2024-03-05 07:44 | disposition home or self-care (01) ==
LOC: HO.MAMMO 07:43
PROVIDERS: PCP Internal Medicine; Visit Provider Internal Medicine
DX: Z13.820 Encounter for screening for osteoporosis (principal); Z78.0 Asymptomatic menopausal state
CPT/HCPCS: 77080

== ENCOUNTER 2024-03-13 06:18 | Outpatient (REF) | payer OTHER, MEDICARE, SELFPAY ==
[2024-03-13 10:24] LABS: Estimated Average Glucose 143 mg/dL; Hemoglobin A1c % 6.6 % (<6.0)
[2024-03-13 10:47] LABS: Alanine Aminotransferase 27 U/L (0-31); Albumin Level 4.3 g/dL (3.5-5.0); Alkaline Phosphatase 84 U/L (39-117); Anion Gap 13 (12-20); Aspartate Amino Transferase 22 U/L (5-31); Bilirubin Total 0.4 mg/dL (0.0-1.0); Blood Urea Nitrogen 20 mg/dL (9-16); Carbon Dioxide 27 mmol/L (22-29); Chloride 103 mmol/L (96-108); Cholesterol 167 mg/dL (<200); Estimated Glomerular Filt Rate > 60; Glucose Fasting 134 mg/dL (60-99); HDL Cholesterol 59 mg/dL (>40); LDL Cholesterol Calculated 90 mg/dL (<100); Potassium 4.9 mmol/L (3.3-5.1); Sodium 138 mmol/L (135-145); Total Protein 7.7 g/dL (6.5-8.0); Triglycerides 90 mg/dL (<150)
[2024-03-13 10:52] LABS: Creatinine Urine 79.06 mg/dL; Microalbum/Creatinine Ratio Ur 15.1 ug/mg cr (<30)
[2024-03-13 11:07] LABS: Vitamin D 25-OH Total 39.6 ng/mL (>30)
== END 2024-03-13 06:19 | disposition home or self-care (01) ==
LOC: HO.HMGCLDS 06:18
PROVIDERS: PCP Internal Medicine; Visit Provider Internal Medicine
DX: I10 Essential (primary) hypertension (principal); E78.5 Hyperlipidemia, unspecified; E11.9 Type 2 diabetes mellitus without complications
CPT/HCPCS: 36415; 80053; 80061; 82043; 82306; 82570; 83036

== ENCOUNTER 2024-03-18 10:28 | Outpatient (AMB) | payer OTHER, MEDICARE, SELFPAY ==
--- NOTE | 2024-03-18 10:29 | MHC.PC.OV ---
Vital Signs 03/18/24 10:43 Height 5 ft 1 in Weight 166 lb BMI 31.4 BP 124/76 Blood Pressure Location Lt brachial Position Sitting Pulse 82 Pulse Source Pulse Oximeter Pulse Oximetry (%) 98 Oxygen Delivery Method Room Air Intake Visit Reasons: 3 month follow up Intake Note: Pt is here today for 3 months follow up visit. Allergies lisinopril Allergy (Unknown, Verified 03/18/24 10:45) cough [facility] Adverse Reaction (Verified 03/18/24 10:45) chills and sweats Medication List - Last Reconciled 03/18/24 by Nat Cotton MD albuterol sulfate 90 mcg/actuation 2 puffs inhalation Q6H PRN amlodipine 5 mg PO BID atorvastatin 40 mg PO DAILY benzonatate 100 mg PO TID cholecalciferol (vitamin D3) 50 mcg PO DAILY fexofenadine 180 mg PO DAILY glimepiride 2 mg PO DAILY hydrochlorothiazide 12.5 mg PO DAILY irbesartan 300 mg PO DAILY metformin 1,000 mg PO BID pantoprazole 40 mg PO DAILY Tobacco use date assessed: 03/18/24 Dental Screening Dental Screen Date: 12/18/23 HPI 3 month follow up HPI Details Patient presents for the follow-up on hypertension hyperlipidemia type 2 diabetes stable on current medications. [facility] Medical History Rash Dysphagia [place] of foot Annual physical exam Normal Pap smear Mammogram normal History of mammogram Osteoarthritis Type 2 diabetes mellitus Hyperlipidemia Hypertension Surgical History H/O colonoscopy No pertinent past surgical history Family History Father Lung cancer Mother No problems noted. Son No problems noted. Son No problems noted. Paternal Uncle Hx of colonoscopy Maternal Grandfather Stomach cancer Social History Housing: House Alcohol intake: never Patient Tobacco Use Status: Never used Tobacco e-Cigarette/Vaping Use: Never Used service: No Current occupational status: employed Cognitive needs: No (wears glasses) Hearing needs: No Vision needs: Yes (wearing glasses ) Questionnaire PHQ-9 Over the last 2 weeks, how often have you been bothered by any of the following problems? 1. Little interest or pleasure in doing things: not at all 2. Feeling down, depressed, or hopeless: not at all 3. Trouble falling or staying asleep, or sleeping too much: not at all 4. Feeling tired or having little energy: not at all 5. Poor appetite or overeating: not at all 6. Feeling bad about yourself - or that you are a failure or have let yourself or your family down: not at all 7. Trouble concentrating on things, such as reading the newspaper or watching television: not at all 8. Moving or speaking so slowly that other people could have noticed. Or the opposite - being so fidgety or restless that you have been moving around a lot more than usual: not at all 9. Thoughts that you would be better off or of hurting yourself in some way: not at all Total score: 0 Depression Screening Interpretation: Negative Depression Screening Done: Yes Source: Developed by Drs. Mikhail Baca, Julienne Murrell, Brian Scott and colleagues, with an educational patrick from [employer]. Thrive Questionnaire Date Thrive assessed: 03/18/24 I am a: Patient What is your living situation today?: I have a steady place to live Within the past 12 months, did the food you bought not last and you didn't have the money to get more?: Never true Within the past 12 months, did you worry whether your food would run out before you got money to buy more?: Never true Do you have trouble paying for medicines?: No Do you have trouble getting transportation to medical appointments?: No Do you have trouble paying your heating and electricity bill?: No Do you have trouble taking care of your child, family member or friend?: No Do you have trouble with day-to-day activities such as bathing, preparing meals, shopping, managing finances, etc.?: No Are you currently unemployed and looking for a job?: No Are you interested in more education?: No Please select the resources that you would like help with: Housing/[facility] Currently or been in a relationship where the following occur: I choose not to answer THRIVE Score: 0 AUDIT C Alcohol Use Questionnaire (AUDIT-C) 1. How often do you have a drink containing alcohol?: Never Total Score: 0 ODESSA-7 AMB Questionnaire ODESSA-7 Date ODESSA - 7 assessed: 03/18/24 Feeling nervous, anxious, or on edge: 0 = Not at all Not being able to stop or control worryin = Not at all Worrying too much about different things: 0 = Not at all Trouble relaxin = Not at all Being so restless that it is hard to sit still: 0 = Not at all Becoming easily annoyed or irritable: 0 = Not at all Feeling afraid as if something awful might happen: 0 = Not at all Total ODESSA-7 score (0-4 normal; 5-9 mild; 10-14 moderate; 15-21 severe): 0 Source: Developed by Drs. Mikhail Baca, Julienne Murrell, Brian Scott and colleagues, with an educational patrick from [employer]. Review of Systems Const All systems reviewed & are unremarkable except as noted in HPI and below ENT Reports no additional complaints Card Reports no additional complaints Resp Reports no additional complaints GI Reports no additional complaints Reports no additional complaints Physical exam (Primary Care) Vital Signs: Last Vital Signs Pulse 82 03/18/24 10:43 BP 124/76 03/18/24 10:43 Pulse Ox 98 03/18/24 10:43 Oxygen Delivery Method Room Air 03/18/24 10:43 BMI result Body Mass Index 31.4 Tobacco/Smoking Status: Tobacco use Status Tobacco use date assessed 03/18/24 03/18/24 10:47 Patient Tobacco Use Status Never used Tobacco 03/18/24 10:47 e-Cigarette/Vaping Use Never Used 03/18/24 10:29 PHQ-9: PHQ-9 Score PHQ-9: Total score 0 03/18/24 10:47 Depression Screening Interpretation: Negative Thrive Assessment: Date of Thrive Assessment Date Thrive assessed 03/18/24 03/18/24 10:29 Currently or been in a relationship where the following occur: I choose not to answer Const General: no acute distress HENMT Head: Yes normal to inspection Ears: hearing grossly normal bilaterally Face and sinus: Yes normal facial exam Neck Neck: Yes no lymphadenopathy and Yes supple Resp Effort & Inspection: normal respiratory effort Auscultation: clear to auscultation bilaterally Cardio Rhythm: regular rhythm Heart sounds: S1 normal heart sound present and S2 normal heart sound present GI Inspection: Yes normal to inspection Palpation (GI): Soft to palpation Percussion: Yes normal to percussion Auscultation: normal bowel sounds Assessment and Plan Assessment & Plan (1) Hypertension: Code(s): I10 - Essential (primary) hypertension Plan: Continue current medications (2) Hyperlipidemia: Code(s): E78.5 - Hyperlipidemia, unspecified Plan: Continue (3) Type 2 diabetes mellitus: Comment: Insurance did not cover Farxiga or Jardiance, Trulicity caused hypoglycemia and tremor Code(s): E11.9 - Type 2 diabetes mellitus without complications Plan: A1c is 6.6, ADA diet increase exercise weight loss discussed with the patient continue current medications follow-up in 5 months with fasting labs before Orders: Orders Comprehensive [place]. Panel Fast 5 Months E11.9 - Type 2 diabetes mellitus without complications, E78.5 - Hyperlipidemia, unspecified, I10 - Essential (primary) hypertension Hemoglobin A1c 5 Months E11.9 - Type 2 diabetes mellitus without complications, E78.5 - Hyperlipidemia, unspecified, I10 - Essential (primary) hypertension Microalbumin, Random (w Creat) 5 Months E11.9 - Type 2 diabetes mellitus without complications, E78.5 - Hyperlipidemia, unspecified, I10 - Essential (primary) hypertension Complete Blood Count Auto Diff 5 Months E11.9 - Type 2 diabetes mellitus without complications, E78.5 - Hyperlipidemia, unspecified, I10 - Essential (primary) hypertension Medications: New triamcinolone acetonide 0.025% 1 appl topical DAILY 80 grams 3RF Coding Level of Care Code Est Pt Level 4 (55194) Diagnoses Hypertension I10 Hyperlipidemia E78.5 Type 2 diabetes mellitus E11.9
[2024-03-18 10:43] VITALS: BP 124/76; PULSE 82; O2SAT 98; BMI 31.4
== END 2024-03-18 11:19 | disposition home or self-care (01) ==
PROVIDERS: PCP Internal Medicine; Visit Provider Internal Medicine
DX: I10 Essential (primary) hypertension (principal); E78.5 Hyperlipidemia, unspecified; E11.9 Type 2 diabetes mellitus without complications
CPT/HCPCS: 99214

== ENCOUNTER 2024-07-29 07:16 | Outpatient (REF) | payer OTHER, MEDICARE, SELFPAY ==
[2024-07-29 10:01] LABS: MANUAL DIFF FLAG NO
[2024-07-29 10:08] LABS: Basophils Absolute Auto 0.1 X10*3/uL (0.0-0.2); Basophils Percent Auto 0.9 % (0-2); Eosinophils Absolute Auto 0.3 X10*3/uL (0.0-0.4); Eosinophils Percent Auto 3.5 % (0-4); Hematocrit 42.2 % (37.0-47.0); Hemoglobin 13.7 g/dl (12.0-16.0); Imm Gran Abs Auto 0.03 X10*3/uL (0.00-0.03); Imm Gran Pct Auto 0.4 % (0.0-0.4); Lymphocytes Absolute Auto 1.9 X10*3/uL (1.2-4.9); Lymphocytes Percent Auto 23.4 % (20-40); Mean Corpuscular HGB Conc 32.5 g/dl (31.0-35.0); Mean Corpuscular Hemoglobin 26.4 pg (27.0-33.0); Mean Corpuscular Volume 81.5 fL (80.0-98.0); Mean Platelet Volume 10.8 fL (9.4-12.3); Monocytes Absolute Auto 0.7 X10*3/uL (0.1-1.2); Monocytes Percent Auto 9.4 % (2-11); Neutrophils Absolute Auto 4.9 x10*3/uL (2.0-8.3); Neutrophils Percent Auto 62.4 % (45-73); Platelet Count 245 X10*3/uL (160-400); Red Blood Count 5.18 X10*6/uL (4.20-5.50); Red Cell Distribution Width 15.1 % (11.0-16.0); White Blood Count 7.9 X10*3/uL (4.8-10.8)
[2024-07-29 10:25] LABS: Alanine Aminotransferase 43 U/L (0-31); Albumin Level 4.2 g/dL (3.5-5.0); Alkaline Phosphatase 124 U/L (39-117); Anion Gap 12 (12-20); Aspartate Amino Transferase 36 U/L (5-31); Bilirubin Total 0.5 mg/dL (0.0-1.0); Blood Urea Nitrogen 14 mg/dL (9-16); Calcium 9.7 mg/dL (8.4-10.2); Carbon Dioxide 28 mmol/L (22-29); Chloride 100 mmol/L (96-108); Estimated Glomerular Filt Rate > 60; Glucose Fasting 161 mg/dL (60-99); Potassium 4.6 mmol/L (3.3-5.1); Sodium 135 mmol/L (135-145); Total Protein 7.7 g/dL (6.5-8.0)
[2024-07-29 10:29] LABS: Estimated Average Glucose 157 mg/dL; Hemoglobin A1C 185.1068 umol/L; Hemoglobin A1c % 7.1 % (<6.0); Total Hemoglobin (HGBA1C) 3413.1688 umol/L
[2024-07-29 10:53] LABS: Creatinine Urine 125.83 mg/dL; Microalbum/Creatinine Ratio Ur 14.3 ug/mg cr (<30)
== END 2024-07-29 07:17 | disposition home or self-care (01) ==
LOC: HO.HMGCLDS 07:16
PROVIDERS: PCP Internal Medicine; Visit Provider Internal Medicine
DX: E11.9 Type 2 diabetes mellitus without complications (principal); I10 Essential (primary) hypertension; E78.5 Hyperlipidemia, unspecified
CPT/HCPCS: 36415; 80053; 82043; 82570; 83036; 85025

== ENCOUNTER 2024-08-06 10:40 | Outpatient (AMB) | payer MEDICARE, OTHER, SELFPAY ==
[2024-08-06 10:44] VITALS: BP 122/78; PULSE 80; O2SAT 98; BMI 31.9
--- NOTE | 2024-08-06 10:44 | MHC.PC.OV ---
Vital Signs 08/06/24 10:44 Height 5 ft 1 in Weight 169 lb BMI 31.9 BP 122/78 Blood Pressure Location Rt brachial Position Sitting Pulse 80 Pulse Source Pulse Oximeter Pulse Oximetry (%) 98 Intake Visit Reasons: 3 month follow up Intake Note: pt is here for 3 month follow up Accompanied by: Self / Same As Patient Allergies lisinopril Allergy (Unknown, Verified 08/06/24 10:44) cough dulaglutide [From [facility]] Adverse Reaction (Verified 08/06/24 10:44) chills and sweats Tobacco use date assessed: 03/18/24 Fall risk assessment: No Falls in past year Last assessed Fall Risk: 08/06/24 Dental Screening Dental Screen Date: 12/18/23 HPI 3 month follow up HPI Details Pt presents for f/u hypertension hyperlipidemia type 2 diabetes chronic GERD PFSH Medical History Rash Dysphagia [place] of foot Annual physical exam Normal Pap smear Mammogram normal History of mammogram Osteoarthritis Type 2 diabetes mellitus Hyperlipidemia Hypertension Surgical History H/O colonoscopy No pertinent past surgical history Family History Father Lung cancer Mother No problems noted. Son No problems noted. Son No problems noted. Paternal Uncle Hx of colonoscopy Maternal Grandfather Stomach cancer Social History Housing: House Alcohol intake: never Patient Tobacco Use Status: Never used Tobacco e-Cigarette/Vaping Use: Never Used service: No Current occupational status: employed Cognitive needs: No (wears glasses) Hearing needs: No Vision needs: Yes (wearing glasses ) Questionnaire Thrive Questionnaire Date Thrive assessed: 03/18/24 ODESSA-7 AMB Questionnaire ODESSA-7 Date ODESSA - 7 assessed: 03/18/24 Source: Developed by Drs. Mikahil Baca, Julienne Murrell, Brian Scott and colleagues, with an educational patrick from [employer] Review of Systems Const All systems reviewed & are unremarkable except as noted in HPI and below Card Reports no additional complaints Resp Reports no additional complaints GI Reports no additional complaints Reports no additional complaints Physical exam (Primary Care) Vital Signs: Last Vital Signs Pulse 80 08/06/24 10:44 BP 122/78 08/06/24 10:44 Pulse Ox 98 08/06/24 10:44 BMI result Body Mass Index 31.9 Tobacco/Smoking Status: Tobacco use Status Tobacco use date assessed 03/18/24 08/06/24 10:45 Patient Tobacco Use Status Never used Tobacco 08/06/24 10:45 e-Cigarette/Vaping Use Never Used 08/06/24 10:45 Thrive Assessment: Date of Thrive Assessment Date Thrive assessed 03/18/24 08/06/24 10:45 Const General: no acute distress Eyes General: appearance normal, both eyes and all related structures Neck Neck: Yes supple Resp Effort & Inspection: normal respiratory effort Auscultation: clear to auscultation bilaterally Cardio Rhythm: regular rhythm Heart sounds: S1 normal heart sound present and S2 normal heart sound present GI Inspection: Yes normal to inspection Palpation (GI): Soft to palpation Percussion: Yes normal to percussion Auscultation: normal bowel sounds Coding Level of Care Code Est Pt Level 4 (42239) Complex EM visit Add On [id number] Diagnoses Hypertension I10 Hyperlipidemia E78.5 Type 2 diabetes mellitus E11.9 Assessment & Plan Assessment & Plan (1) Hypertension: Code(s): I10 - Essential (primary) hypertension Category: Medical Plan: Continue current medications (2) Hyperlipidemia: Code(s): E78.5 - Hyperlipidemia, unspecified Category: Medical Plan: Continue statin (3) Type 2 diabetes mellitus: Comment: Insurance did not cover Farxiga or Jardiance, Trulicity caused hypoglycemia and tremor Code(s): E11.9 - Type 2 diabetes mellitus without complications Category: Medical Plan: A1c is 7.1, ADA diet increase exercise weight loss discussed with the patient continue current medications follow-up in 4 months with a fasting labs before Orders: Orders Lipid Panel 4 Months E11.9 - Type 2 diabetes mellitus without complications, E78.5 - Hyperlipidemia, unspecified, I10 - Essential (primary) hypertension Microalbumin, Random (w Creat) 4 Months E11.9 - Type 2 diabetes mellitus without complications, E78.5 - Hyperlipidemia, unspecified, I10 - Essential (primary) hypertension TSH reflex Free T4 4 Months E11.9 - Type 2 diabetes mellitus without complications, E78.5 - Hyperlipidemia, unspecified, I10 - Essential (primary) hypertension Comprehensive [place]. Panel Fast 4 Months E11.9 - Type 2 diabetes mellitus without complications, E78.5 - Hyperlipidemia, unspecified, I10 - Essential (primary) hypertension Hemoglobin A1c 4 Months E11.9 - Type 2 diabetes mellitus without complications, E78.5 - Hyperlipidemia, unspecified, I10 - Essential (primary) hypertension Complete Blood Count Auto Diff 4 Months E11.9 - Type 2 diabetes mellitus without complications, E78.5 - Hyperlipidemia, unspecified, I10 - Essential (primary) hypertension Referrals Cologuard Test Z12.11 - Encounter for screening for malignant neoplasm of colon, Z12.12 - Encounter for screening for malignant neoplasm of rectum
== END 2024-08-06 11:26 | disposition home or self-care (01) ==
PROVIDERS: PCP Internal Medicine; Visit Provider Internal Medicine
DX: I10 Essential (primary) hypertension (principal); E78.5 Hyperlipidemia, unspecified; E11.9 Type 2 diabetes mellitus without complications

== ENCOUNTER → 2024-08-06 10:40 | Outpatient (BNVA) | payer OTHER, MEDICARE, SELFPAY | PROVIDERS: PCP Internal Medicine; Visit Provider Internal Medicine | DX: I10 Essential (primary) hypertension (principal); E78.5 Hyperlipidemia, unspecified; E11.9 Type 2 diabetes mellitus without complications; Z79.899 Other long term (current) drug therapy | CPT/HCPCS: 99212 ==

== ENCOUNTER 2024-12-01 07:15 | Outpatient (REF) | payer OTHER, MEDICARE, SELFPAY ==
[2024-12-01 10:04] LABS: MANUAL DIFF FLAG NO
[2024-12-01 10:17] LABS: Basophils Absolute Auto 0.1 X10*3/uL (0.0-0.2); Basophils Percent Auto 0.7 % (0-2); Eosinophils Absolute Auto 0.3 X10*3/uL (0.0-0.4); Eosinophils Percent Auto 3.5 % (0-4); Hematocrit 39.6 % (37.0-47.0); Imm Gran Abs Auto 0.03 X10*3/uL (0.00-0.03); Imm Gran Pct Auto 0.4 % (0.0-0.4); Lymphocytes Absolute Auto 2.1 X10*3/uL (1.2-4.9); Lymphocytes Percent Auto 24.9 % (20-40); Mean Corpuscular HGB Conc 32.8 g/dl (31.0-35.0); Mean Corpuscular Hemoglobin 26.9 pg (27.0-33.0); Mean Corpuscular Volume 81.8 fL (80.0-98.0); Monocytes Absolute Auto 0.8 X10*3/uL (0.1-1.2); Monocytes Percent Auto 9.6 % (2-11); Neutrophils Absolute Auto 5.1 x10*3/uL (2.0-8.3); Neutrophils Percent Auto 60.9 % (45-73); Platelet Count 233 X10*3/uL (160-400); Red Blood Count 4.84 X10*6/uL (4.20-5.50); Red Cell Distribution Width 14.5 % (11.0-16.0); White Blood Count 8.4 X10*3/uL (4.8-10.8)
[2024-12-01 10:30] LABS: Estimated Average Glucose 157 mg/dL; Hemoglobin A1c % 7.1 % (<6.0)
[2024-12-01 11:10] LABS: Alanine Aminotransferase 20 U/L (0-31); Albumin Level 4.2 g/dL (3.5-5.0); Alkaline Phosphatase 91 U/L (39-117); Anion Gap 14 (12-20); Aspartate Amino Transferase 27 U/L (5-31); Bilirubin Total 0.5 mg/dL (0.0-1.0); Blood Urea Nitrogen 24 mg/dL (9-16); Calcium 9.4 mg/dL (8.4-10.2); Carbon Dioxide 26 mmol/L (22-29); Chloride 104 mmol/L (96-108); Cholesterol 141 mg/dL (<200); Estimated Glomerular Filt Rate > 60; Glucose Fasting 124 mg/dL (60-99); HDL Cholesterol 50 mg/dL (>40); LDL Cholesterol Calculated 75 mg/dL (<100); Potassium 4.6 mmol/L (3.3-5.1); Sodium 139 mmol/L (135-145); TSH reflex Free T4 0.97 uIU/mL (0.32-4.0); Total Protein 7.5 g/dL (6.5-8.0); Triglycerides 80 mg/dL (<150)
[2024-12-01 11:12] LABS: Creatinine Urine 60.21 mg/dL; Microalbum/Creatinine Ratio Ur 19.9 ug/mg cr (<30)
== END 2024-12-01 07:16 | disposition home or self-care (01) ==
LOC: HO.HMGCLDS 07:15
PROVIDERS: PCP Internal Medicine; Visit Provider Internal Medicine
DX: E11.9 Type 2 diabetes mellitus without complications (principal); I10 Essential (primary) hypertension; E78.5 Hyperlipidemia, unspecified
CPT/HCPCS: 36415; 80053; 80061; 82043; 82570; 83036; 84443; 85025

== ENCOUNTER 2024-12-08 09:29 | Outpatient (REF) | payer OTHER, MEDICARE, SELFPAY ==
--- NOTE | ~2024-12-08 | XR_ITS ---
CLINICAL HISTORY: M25.551 - Pain in right hip 5 views bilateral hips. Single AP pelvis. Comparison: None Findings: No fractures, subluxations or dislocations. Normal congruency of the hip joints. SI joints, pubic rami and symphysis pubis intact. Mild axial narrowing both femoroacetabular joints with no significant osteophytes or femoral bumps Bone mineralization and soft tissues within normal limits. No radiopaque foreign body. Impression: 1. No acute fractures or malalignment. 2. Mild osteoarthritic changes femoroacetabular joints bilaterally This document has been electronically signed by: Tate Fernandez MD on 12/09/2024 12:36:23
--- OUTSIDE RECORDS SUMMARY | 2024-12-08 11:55 | XMS_ITS | Clinical Summary ---
Author Organization [facility] it Address [address] [place] [address] Care Team Providers Care Manager Wind Name Role Phone Nat Cotton MD Primary Care Provider [phone] Medical History Medical History Date Comments Essential [...] 08/15/2022 Falls Risk Assessment 2022 COVID-19 Vaccine ( - 2023-2 5 season) 2024 Influenza Vaccine (Season Ended) 2025 RSV Immunization Adult Patie nts (1 - [...] age to complete this topic Care Teams Manager Wind Relationship Specialty Start Date End Date Nat Cotton MD PCP - General 11/03/17
== END 2024-12-08 09:30 | disposition home or self-care (01) ==
LOC: HO.HMGCX 09:29
PROVIDERS: PCP Internal Medicine; Visit Provider Internal Medicine
DX: M25.551 Pain in right hip (principal); M25.552 Pain in left hip; K21.9 Gastro-esophageal reflux disease without esophagitis; R13.10 Dysphagia, unspecified; E78.5 Hyperlipidemia, unspecified; E11.9 Type 2 diabetes mellitus without complications; I10 Essential (primary) hypertension
CPT/HCPCS: 73521; 96127

== ENCOUNTER 2024-12-08 09:29 | Outpatient (AMB) | payer OTHER, MEDICARE, SELFPAY ==
[2024-12-08 09:31] VITALS: BP 118/66; PULSE 76; RESP 18; TEMP 36.8; O2SAT 96; BMI 31.6
--- NOTE | 2024-12-08 09:31 | MHC.PC.OV ---
Vital Signs 12/08/24 09:31 Height 5 ft 1 in Weight 167 lb BMI 31.6 BP 118/66 Blood Pressure Location Lt brachial Position Sitting Respiration 18 Pulse 76 Pulse Source Pulse Oximeter Temp 98.3 F Temp Source Oral Pulse Oximetry (%) 96 Oxygen Delivery Method Room Air Intake Visit Reasons: 4 months follow up Intake Note: Pt is here today for 4 months follow up visit. Allergies lisinopril Allergy (Unknown, Verified 12/08/24 09:34) cough [facility] Adverse Reaction (Verified 12/08/24 09:34) chills and sweats Medication List - Last Reconciled 12/08/24 by Nat Cotton MD albuterol sulfate 90 mcg/actuation 2 puffs inhalation Q6H PRN amlodipine 5 mg PO BID atorvastatin 40 mg PO DAILY cholecalciferol (vitamin D3) 50 mcg PO DAILY fexofenadine 180 mg PO DAILY glimepiride 2 mg PO DAILY hydrochlorothiazide 12.5 mg PO DAILY irbesartan 300 mg PO DAILY metformin 1,000 mg PO BID pantoprazole 40 mg PO QAM triamcinolone acetonide 0.025% 1 appl topical DAILY Tobacco use date assessed: 12/08/24 Fall risk assessment: No Falls in past year Last assessed Fall Risk: 12/08/24 Dental Screening Dental Screen Date: 12/08/24 Did you have a dental visit in the last 12 months?: Yes Did you have a dental problem in the last 6 months where you did not have access to dental care?: No Was dental information given to patient?: Patient has dentist HPI 4 months follow up HPI Details Pt presents for f/u DM2, HTN, hyperlipid, stable on meds. Pt c/o chronic episodes of dysphagia to solids and odynophagia on and off for a few months. She has been taling PPI without significant relief. She denies weight loss, abd pain, melena.Pt c/o R lateral thigh pain for a few months getting worse when walking for a long distance. Pt had cortisone injections with temporary relief. [facility] Medical History Rash Dysphagia [place] of foot Annual physical exam Normal Pap smear Mammogram normal History of mammogram Osteoarthritis Type 2 diabetes mellitus Hyperlipidemia Hypertension Surgical History H/O colonoscopy No pertinent past surgical history Family History Father Lung cancer Mother No problems noted. Son No problems noted. Son No problems noted. Paternal Uncle Hx of colonoscopy Maternal Grandfather Stomach cancer Social History Housing: House Alcohol intake: never Patient Tobacco Use Status: Never used Tobacco e-Cigarette/Vaping Use: Never Used service: No Current occupational status: employed Cognitive needs: No (wears glasses) Hearing needs: No Vision needs: Yes (wearing glasses ) Questionnaire PHQ-9 Over the last 2 weeks, how often have you been bothered by any of the following problems? 1. Little interest or pleasure in doing things: not at all 2. Feeling down, depressed, or hopeless: not at all 3. Trouble falling or staying asleep, or sleeping too much: not at all 4. Feeling tired or having little energy: not at all 5. Poor appetite or overeating: not at all 6. Feeling bad about yourself - or that you are a failure or have let yourself or your family down: not at all 7. Trouble concentrating on things, such as reading the newspaper or watching television: not at all 8. Moving or speaking so slowly that other people could have noticed. Or the opposite - being so fidgety or restless that you have been moving around a lot more than usual: not at all 9. Thoughts that you would be better off or of hurting yourself in some way: not at all Total score: 0 Depression Screening Interpretation: Negative Depression Screening Done: Yes 56769 - PHQ-9 Billing: Yes Source: Developed by Drs. Mikhial Baca, Julienne Murrell, Brian Scott and colleagues, with an educational patrick from [employer]. Thrive Questionnaire Date Thrive assessed: 12/08/24 I am a: Patient What is your living situation today?: I have a steady place to live Within the past 12 months, did the food you bought not last and you didn't have the money to get more?: Never true Within the past 12 months, did you worry whether your food would run out before you got money to buy more?: Never true Do you have trouble paying for medicines?: No Do you have trouble getting transportation to medical appointments?: No Do you have trouble paying your heating and electricity bill?: No Do you have trouble taking care of your child, family member or friend?: No Do you have trouble with day-to-day activities such as bathing, preparing meals, shopping, managing finances, etc.?: No Are you currently unemployed and looking for a job?: No Are you interested in more education?: No THRIVE Score: 0 AUDIT C Alcohol Use Questionnaire (AUDIT-C) 1. How often do you have a drink containing alcohol?: Never 3. How often do you have six or more drinks on one occasion?: Never Total Score: 0 ODESSA-7 AMB Questionnaire ODESSA-7 Date ODESSA - 7 assessed: 12/08/24 Feeling nervous, anxious, or on edge: 0 = Not at all Not being able to stop or control worryin = Not at all Worrying too much about different things: 0 = Not at all Trouble relaxin = Not at all Being so restless that it is hard to sit still: 0 = Not at all Becoming easily annoyed or irritable: 0 = Not at all Feeling afraid as if something awful might happen: 0 = Not at all Total ODESSA-7 score (0-4 normal; 5-9 mild; 10-14 moderate; 15-21 severe): 0 Source: Developed by Drs. Mikhail Baca, Julienne Murrell, Brian Scott and colleagues, with an educational patrick from [employer]. ODESSA-7 Assessment Billing ODESSA-7 Assessment Tool: ODESSA-7 Assessment 86666 Review of Systems Const All systems reviewed & are unremarkable except as noted in HPI and below Eyes Reports no additional complaints ENT Reports no additional complaints Card Reports no additional complaints Resp Reports no additional complaints GI Reports no additional complaints Reports no additional complaints Physical exam (Primary Care) Vital Signs: Last Vital Signs Temp 98.3 F 12/08/24 09:31 Pulse 76 12/08/24 09:31 Resp 18 12/08/24 09:31 BP 118/66 12/08/24 09:31 Pulse Ox 96 12/08/24 09:31 Oxygen Delivery Method Room Air 12/08/24 09:31 BMI result Body Mass Index 31.6 Tobacco/Smoking Status: Tobacco use Status Tobacco use date assessed 12/08/24 12/08/24 09:37 Patient Tobacco Use Status Never used Tobacco 12/08/24 09:33 e-Cigarette/Vaping Use Never Used 12/08/24 09:33 PHQ-9: PHQ-9 Score PHQ-9: Total score 0 12/08/24 09:37 Depression Screening Interpretation: Negative Thrive Assessment: Date of Thrive Assessment Date Thrive assessed 12/08/24 12/08/24 09:33 Const General: no acute distress HENMT Head: Yes normal to inspection Ears: hearing grossly normal bilaterally Throat: Yes posterior oropharynx normal Eyes General: appearance normal, both eyes and all related structures Neck Neck: Yes supple Resp Effort & Inspection: normal respiratory effort Auscultation: clear to auscultation bilaterally Cardio Rhythm: regular rhythm Heart sounds: S1 normal heart sound present and S2 normal heart sound present GI Inspection: Yes normal to inspection Palpation (GI): Soft to palpation Percussion: Yes normal to percussion Auscultation: normal bowel sounds Extrem Other: DROM of both hips, R trochanteric tenderness, no soft tissue swelling General: Yes no clubbing, cyanosis or edema Coding Level of Care Code Est Pt Level 4 (15281) Complex EM visit Add On G2211 Diagnoses Hip pain, bilateral M25.551; M25.552 GERD (gastroesophageal reflux disease) K21.9 Odynophagia R13.10 Type 2 diabetes mellitus E11.9 Hypertension I10 Hyperlipidemia E78.5 Additional Codes ODESSA-7 Assessment Billing - ODESSA-7 Assessment Tool: ODESSA-7 Assessment 48891 ([id number]) PHQ-9 - 23412 - PHQ-9 Billing: Yes ([id number]) Assessment & Plan Assessment & Plan (1) Hip pain, bilateral: Code(s): M25.551 - Pain in right hip; M25.552 - Pain in left hip Category: Medical Plan: check XR, try PT (2) GERD (gastroesophageal reflux disease): Code(s): K21.9 - Gastro-esophageal reflux disease without esophagitis Category: Medical Plan: cont PPI (3) Odynophagia: Code(s): R13.10 - Dysphagia, unspecified Category: Medical Plan: refer to GI for EGD, (4) Type 2 diabetes mellitus: Comment: Insurance did not cover Farxiga or Jardiance, Trulicity caused hypoglycemia and tremor Code(s): E11.9 - Type 2 diabetes mellitus without complications Category: Medical Plan: a1c 7.1, ADA diet, weight loss, exercise discussed, cont meds, f/u 3 months. Pt declined GLP 1 agonist (5) Hypertension: Code(s): I10 - Essential (primary) hypertension Category: Medical Plan: cont meds (6) Hyperlipidemia: Code(s): E78.5 - Hyperlipidemia, unspecified Category: Medical Plan: cont statin Orders: Orders XR hip BI w PEL1V Today M25.551 - Pain in right hip, M25.552 - Pain in left hip Comprehensive Oley. Panel Fast 3 Months E11.9 - Type 2 diabetes mellitus without complications, E78.5 - Hyperlipidemia, unspecified, I10 - Essential (primary) hypertension Complete Blood Count Auto Diff 3 Months E11.9 - Type 2 diabetes mellitus without complications, E78.5 - Hyperlipidemia, unspecified, I10 - Essential (primary) hypertension Hemoglobin A1c 3 Months E11.9 - Type 2 diabetes mellitus without complications, E78.5 - Hyperlipidemia, unspecified, I10 - Essential (primary) hypertension Lipid Panel 3 Months E11.9 - Type 2 diabetes mellitus without complications, E78.5 - Hyperlipidemia, unspecified, I10 - Essential (primary) hypertension Microalbumin, Random (w Creat) 3 Months E11.9 - Type 2 diabetes mellitus without complications, E78.5 - Hyperlipidemia, unspecified, I10 - Essential (primary) hypertension Referrals Gastroenterology Referral K21.9 - Gastro-esophageal reflux disease without esophagitis, R13.10 - Dysphagia, unspecified Medications: Refilled pantoprazole 40 mg PO QAM 90 tabs 1RF K21.9 - Gastro-esophageal reflux disease without esophagitis
--- OUTSIDE RECORDS SUMMARY | 2024-12-08 10:44 | XMS_ITS | Data Portability ---
Author Organization KELI Bynum s, [address] Address [address] [place] [address] Assessment No assessment recorded. Plan of Treatment Reminders Order Date Submit Date Provider Last Modified By Organization Details Last Modified Time Details Appointments None recorded. Lab rapid strep group A, throat 2023 024 [facility], [address] [place], [address], 4 09:27:11 rapid flu (A+B) 2023 024 [email or web address], [address] [place], [address], 4 09:27:10 streptococc us group A, culture, throat 2023 024 [facility], [address] [place] [address], [place], [address], 4 16:06:48 Referral None recorded. Procedures None recorded. Surgeries None recorded. Imaging XR, chest, 2 view 2023 024 [facility], [address] [place] [address], [place], [address], 4 09:27:05 Medication Orders prednisone 20 mg tablet 2023 024 [facility]35, [address] [place] [address], [id number], 4 15:08:29 fexofenadin e 180 mg tablet 2023 024 [facility] #96774, [address] [place], [place], [id number], 4 15:08:29 albuterol sulfate 2.5 mg/3 mL (0.083 %) solution for nebulizatio n 2023 024 [email or web address] Not available 4 09:27:05 ipratropium bromide 0.02 % solution for inhalation 2023 024 [email or web address] Not available 4 09:27:06 albuterol sulfate HFA 90 mcg/actuati on aerosol inhaler 2023 024 [address] [facility], [address], [place], [phone], 4 09:27:05 prednisone 20 mg tablet [address] [facility]17, [address], [place], [id number], 4 09:27:05 benzonatate 200 mg capsule 2023 024 [address] [facility] [facility], [address], [place], [id number], 4 09:27:05 Allergy Relief (fluticason e) 50 mcg/actuati on nasal spray,suspe nsion 2023 024 [address] [facility], [address], [place], [phone], 4 09:27:05 Patient TargetsNo targets recorded. Patient Instructions Encounter Date Encounter Id Patient Instructions Last Modified By Organization Details Last Modified Time 02/01/2024 [id number] specimen collection & handling* [facility] Not available 02/01/2024 09:27:09 peak flow* Not available 01/31 09:27:08 Patient is stating her diabetes is under control but she will be prescribed prednisone due to bronchitis and wheezing and coughing a lot at night . patient to take only for 3 days in the morning . X-ray chest negative for pneumonia. strongly encourage patient to follow up after 10 days for repeat chest X-ray and further evaluation. Not available 02/01/2024 09:24:44 02/24/2024 [id number] type 2 diabetes: care instructions Not available 02/24/2024 15:10:54 bronchitis: care instructions Not available 02/24/2024 15:08:21 Reason for Referral None Reported. Results Created Date Observation Date Name Description Value Unit Range Abnormal Flag Note LastModifiedBy Organization Detail LastModifiedTime 02/01/20 24 02/04/2024 BETA STREP GP A CULTU RE beta strep gp A culture NEGATI VE Refer ence Range : Negat pal Not Available [facility] ([facility]) [address] [place], [address], 02/04/2024 16:06:48 02/01/2002/01/2024 peak flow* Pre (L/min) 110 Not Available [facility] [address] [place], [address], 02/01/2024 08:48:53 02/01/2002/01/2024 peak flow* Post (L/min) 130 Not Available [address] [place], [address], 02/01/2024 08:48:53 02/01/2002/01/2024 peak flow* Pulse 73 Not Available [facility] [address] [place], [address], 02/01/2024 08:48:53 05/31/02/01/2024 peak flow* Oxygen Saturation 99% Not Available [facility] [address] [place], [address], 02/01/2024 08:48:53 02/01/20 24 02/01/2024 speci men colle ction & handl ing* Completed? Succes sfully Not Available [id number] [place] [address] [address] [place], [address], 02/01/2024 08:48:07 02/01/20 24 02/01/2024 rapid flu (A+B) Unknown Analyte negati ve Not Available [id number] [place] [address] [place] [address], [address], 02/01/2024 08:44:02 02/01/20 24 02/01/2024 rapid flu (A+B) Unknown Analyte negati ve Not Available [id number] [place] [address] [place] [address], [address], 02/01/2024 08:44:02 02/01/20 24 02/01/2024 rapid flu (A+B) Unknown Analyte yes Not Available [id number] [place] [address] [place] [address], [address], 02/01/2024 08:44:02 02/01/20 24 02/01/2024 rapid strep group A, throa t Unknown Analyte negati ve Not Available [id number] [place] [address] [address] [place], [address], 02/01/2024 08:43:26 02/01/20 24 02/01/2024 rapid strep group A, throa t Unknown Analyte yes Not Available [id number] [place] [address] [address] [place], [address], 02/01/2024 08:43:26 02/01/20 24 02/01/2024 XR, chest , 2 view No observ ation record ed. [facility] [address] [place], [address], 02/01/2024 09:30:12 Result Notes None recorded. Problems Name Problem SNOMED Code Status Onset Date Resolution Date Notes Provider Name and Address Organization Details Recorded Time Diabetes mellitus 55782511 Active Cordelia Hannah null, PA - [facility] 4 08:42:02 Arthritis 5899417 Active Cordelia Hannah null, PA - [facility] 4 08:42:17 Acute bronchitis 50661520 Active 2023 Aamir Jurado, [employer] [address] , [place], [address], [place] - [facility] 4 08:47:58 Hyperglycem ia due to type 2 diabetes mellitus 6879708112759 09 Active 2023 Aamir Jurado [employer] [address] , [place], [address], [place] - [facility] 4 09:19:11 Type 2 diabetes mellitus without complicatio n 345298011 Active 2023 Aamir Jurado, [employer] [address] , [place], [address], [place] - [facility] 4 15:10:47 Problem Notes None recorded. Procedures Surgical History None recorded. Imaging Results Imaging Date Name Status LastModified by Organiz ation Details LastModified Time 02/01/2024 XR, chest, 2 view completed [email or web address] [facility] [address] [place], [address], 02/01/2024 09:30:12 Procedure Notes None recorded. Medical Equipment None Reported. Allergies Allergen ID Allergen Name Allergen Category Reaction Reaction Severity Criticality Documentation Date Start Date Code Code System Note Provider Name and Address Organization Details Recorded Time 158178 lisinopri l medicatio n Not available Not available Not available 02/01/2024 21943 RxNorm KELI Davis - [facility] 4 08:38:43 Medications Name Sig Start Date Stop Date Status Note LastModified by Organization Details LastModified Time Prescripti on - Renewal active Not Available Not Available Not Available amoxicilli n 500 mg capsule TAKE 2 CAPSULES BY MOUTH NOW FOLLOWED BY 1 CAPSULE EVERY 8 HOURS UNTIL FINISHED active Not Available Not Available No t Available atorvastat in 40 mg tablet TAKE 1 TABLET BY MOUTH DAILY active Not Available Not Available No t Available albuterol sulfate 2.5 mg/3 mL (0.083 %) solution for nebulizati on Inhale 2.5 mg every day by nebulizat ion route as directed for 1 day. 2023 active Billable unit is always one. Units are not the dose. Not Available Not Available Not Available ibuprofen 800 mg tablet TAKE 1 TABLET BY MOUTH EVERY 4 TO 6 HOURS NEEDED FOR PAIN active Not Available Not Available No t Available benzonatat e 200 mg capsule TAKE 1 CAPSULE BY MOUTH THREE TIMES DAILY FOR 7 DAYS NEEDED FOR COUGH active Not Available Not Available No t Available prednisone 20 mg tablet TAKE 2 TABLETS BY MOUTH EVERY DAY IN THE MORNING FOR 5 DAYS FOR INFLAMMAT ION active Not Available Not Available No t Available amlodipine 5 mg tablet TAKE 1 TABLET BY MOUTH TWICE DAILY active Not Available Not Available No t Available aspirin 81 mg tablet,del ayed release TAKE 1 TABLET BY MOUTH EVERY DAY active Not Available Not Available No t Available glimepirid e 2 mg tablet TAKE 1 TABLET BY MOUTH DAILY active Not Available Not Available No t Available benzonatat e 100 mg capsule TAKE 1 CAPSULE BY MOUTH THREE TIMES DAILY active Not Available Not Available No t Available pantoprazo le 40 mg tablet,del ayed release active Not Available Not Available Not Available metformin 1,000 mg tablet TAKE 1 TABLET BY MOUTH TWICE DAILY active Not Available Not Available No t Available metoprolol succinate ER 25 mg tablet,ext ended release 24 hr TAKE 1 TABLET BY MOUTH DAILY active Not Available Not Available No t Available albuterol sulfate HFA 90 mcg/actuat ion aerosol inhaler INHALE 2 PUFFS BY MOUTH EVERY 4 HOURS FOR 10 DAYS NEEDED FOR WHEEZING OR COUGH active Not Available Not Available No t Available fluticason e propionate 50 mcg/actuat ion nasal spray,susp ension USE 1 SPRAY INTRANASA LLY ONCE A DAY DIRECTED FOR NASAL CONGESTIO N active Not Available Not Available No t Available doxycyclin e hyclate 100 mg tablet TAKE 1 TABLET BY MOUTH TWICE DAILY active Not Available Not Available No t Available irbesartan 300 mg tablet TAKE 1 TABLET BY MOUTH DAILY active Not Available Not Available No t Available ipratropiu m bromide 0.02 % solution for inhalation Inhale 0.5 mg every day by inhalatio n route as directed for 1 day. 2023 active Billable unit is always one. Units are not the dose. Not Available Not Available Not Available atorvastat in active Not Available Not Available Not Available amlodipine active Not Available Not Av ailable Not Available metoprolol succinate active Not Available Not Available No t Available metformin active Not Available Not Zarina ilable Not Available hydrochlor othiazide 12.5 mg tablet TAKE 1 TABLET BY MOUTH DAILY active Not Available Not Available No t Available cholecalci ferol (vitamin D3) 50 mcg (2,000 unit) capsule TAKE 1 CAPSULE BY MOUTH EVERY DAY active Not Available Not Available No t Available Allergy Relief (fexofenad ine) 180 mg tablet TAKE 1 TABLET BY MOUTH EVERY DAY DIRECTED FOR SEASONAL ALLERGIES active Not Available Not Available No t Available Vitals Date Recorded Body height Body mass index (BMI) Body weight Oxygen saturation Oxygen saturation in Arterial blood by Pulse oximetry Heart rate Respiratory rate Body temperature Systolic blood pressure Diastolic blood pressure Provider Name and Address Organization Details Last Updated DateTime 4 152.4 cm 31.2 kg/m2 01787.7 8 g 99 % 99 % 73 /min 16 /min 98 [degF] 114 mm[Hg] 73 mm[Hg] Cordelia DICKEY [facility] 4 08:37:48 Date Recorded Body height Body mass index (BMI) Body weight Respiratory rate Pain severity - 0-10 verbal numeric rating [Score] - Reported Oxygen saturation Oxygen saturation in Arterial blood by Pulse oximetry Heart rate Body temperature Systolic blood pressure Diastolic blood pressure Provider Name and Address Organization Details Last Updated DateTime 4 152.4 cm 31.2 kg/m2 16302.7 8 g 18 /min 5 96 % 96 % 81 /min 98 [degF] 120 mm[Hg] 79 mm[Hg] Duyen DICKEY [facility] 4 15:00:28 Social History Question Answer Notes LastModified by Organizat ion Details LastModified Time Tobacco Smoking Status Never Smoker KELI Davis - [facility] 02/01/2024 08:43:12 What Is Your Level Of Alcohol Consumption? None Information not available 02/01/2024 Are You Currently Employed? Yes Information not available 02/01/2024 What Is The Highest Grade Or Level Of School You Have Completed Or The Highest Degree You Have Received? [id number] [email or web address] Information not available 02/24/2024 Have You Had A Flu Shot This Season? No Information not available 02/24/2024 If No, Would You Like A Flu Shot Today? No Information not available 02/24/2024 Have You Had Direct Contact, Or Contact During Intimacy, With Monkeypox Rash, Scabs, Or Body Fluids From A Person With Monkeypox? No [email or web address] Information not available 02/24/2024 What Was The Date Of Your Most Recent Tobacco Screening? 02/01/2024 Information not available 02/01/2024 Do You Use Any Illicit Or Recreational Drugs? No Information not available 02/01/2024 Have You Recently Traveled Abroad? No [email or web address] Information not available 02/24/2024 Are You Currently In School? No [email or web address] Information not available 02/24/2024 Do You Or Have You Ever Used Any Other Forms Of Tobacco Or Nicotine? No Information not available 02/01/2024 Sex: Unknown Functional Status None recorded. Mental Status None recorded. Family History Relationship Description Onset Age of this Age Resolved Age Notes LastModified by Organization Details LastModified Time Father No current problems or disability Not available 01/31 08:42:21 Mother No current problems or disability Not available 01/31 08:42:21 Medical History No medical history recorded. Gynecological History Statement/Question Response Is there any chance of ? No Obstetrics History GPAL:G 0 P 0 0 0 0 Immunizations Vaccine Type Date Status Note Provider Nam margarette and Address Organization Details Recorded Time Influenza, split virus, quadrivalent, preservative 8 completed Cordelia Hannah null, PA - [facility] 02/01/2024 08:38:16 Influenza, split virus, quadrivalent, preservative 1 completed Cordelia Hannah null, PA - [facility] 02/01/2024 08:38:16 COVID-19, mRNA, LNP-S, PF, 30 mcg/0.3 mL dose 1 completed Cordelia Hannah null, PA - [facility] 02/01/2024 08:38:16 COVID-19, mRNA, LNP-S, PF, 30 mcg/0.3 mL dose 1 completed Cordelia Hannah null, PA - [facility] 02/01/2024 08:38:16 COVID-19, mRNA, LNP-S, PF, 30 mcg/0.3 mL dose 1 completed Cordelia Hannah null, PA - [facility] 02/01/2024 08:38:16 Influenza, split virus, quadrivalent, PF 0 completed Cordelia Hannah null, PA - [facility] 02/01/2024 08:38:16 Influenza, split virus, quadrivalent, PF 7 completed Cordelia Hannah null, PA - [facility] 02/01/2024 08:38:16 Influenza, split virus, quadrivalent, PF 2 completed Cordelia Hannah null, PA - [facility] 02/01/2024 08:38:16 Past Encounters Encounter ID Performer Location Encounter Start Date Encounter Closed Date Diagnosis/Indication Diagnosis SNOMED-CT Code Diagnosis ICD10 Code Diagnosis Note [id number] [address] [address] [address] [facility] [place] [address] 11/02/2019 08:23:42 11/02/2019 09:30:55 [id number] [place] [id number] [facility] [address] [place] [address] 02/01/2024 08:20:04 02/01/2024 09:26:30 Acute bronchitis 67376123 J20.9 Acute bronchitis is a common clinical condition characteri zed by an acute onset but persistent cough, with or without sputum production . It is typically self-limit ed, resolving within one to three weeks. Symptoms result from inflammati on of the lower respirator y tract and are most frequently due to viral infection. Treatment is focused on patient education and supportive care. Antibiotic s are not needed for the great majority of patients with acute bronchitis but are greatly overused for this condition. Reducing antibiotic use for acute bronchitis is a national and internatio formerly [facility] health care priority. In most patients, the cough persists for 1 to 3 weeks, with a average duration of 18 days. The cough may be associated with either purulent or nonpurulen t sputum production The presence of purulent sputum is a nonspecifi c finding and does not appear to be predictive of bacterial infection or that antibiotic s are needed. For the great majority of patients, use of antibiotic s does not hasten recovery or prevent complicati ons but puts patients at increased risk of adverse effects including potentiall y severe complicati ons such as Clostridio ides difficile infection and anaphylaxi s. Non-Pharma cological treatment for coughin . Throat lozenges2. Hot tea3. Honey4. Smoking cessation5 . Avoidance of second hand smoke. Pharmacolo gical Treatment: 1. Robitussin or guafenesin 2. Antihistam ines3. dextrometh orphan I would plan on being seen again if any of the following symptoms develop:1. Fever (100.5)2. Shortness of breath3. Wheezing4. Worsening Cough. I would go to the ER if you develop:1. Severe Shortness of breath2. Chest Pain3. Wheezing4. Coughing up Blood Hyperglyce yanci due to type 2 diabetes mellitus [id number] 33233 E11.65 Health Education and GuidanceDi abetes Type 1 and Type 2 The following recommenda tions are meant to maximize the health of patients with diabetes, while minimizing complicati ons. This informatio n is sourced from the Centers for Disease Control and Prevention (CDC). Routine Care-It is important for patients with diabetes to have routine doctor appointmen ts with their endocrinol ogist and/or primary care provider to examine or test the following: Blood pressureFe et, for sores at every visit, and give a thorough foot exam at least once a yearHemogl obin A1C test at least twice a year to determine average blood glucose level for the past 2 to 3 monthsTest urine and blood to check kidney function at least once a yearBlood lipids (fats), total cholestero l; LDL, or low-densit y lipoprotei n ( bad cholestero l); HDL, or high-densi ty lipoprotei n ( good cholestero l); and triglyceri lizeth at least once a year [id number] Aamir Jurado, [facility]ZA [address] [facility] [address] [facility] [place] [address] 02/24/2024 14:01:58 02/24/2024 15:12:46 Acute bronchitis 57203987 J20.9 Acute bronchitis is a common clinical condition characteri zed by an acute onset but persistent cough, with or without sputum production . It is typically self-limit ed, resolving within one to three weeks. Symptoms result from inflammati on of the lower respirator y tract and are most frequently due to viral infection. Treatment is focused on patient education and supportive care. Antibiotic s are not needed for the great majority of patients with acute bronchitis but are greatly overused for this condition. Reducing antibiotic use for acute bronchitis is a national and internatio formerly [facility] health care priority. In most patients, the cough persists for 1 to 3 weeks, with a average duration of 18 days. The cough may be associated with either purulent or nonpurulen t sputum production The presence of purulent sputum is a nonspecifi c finding and does not appear to be predictive of bacterial infection or that antibiotic s are needed. For the great majority of patients, use of antibiotic s does not hasten recovery or prevent complicati ons but puts patients at increased risk of adverse effects including potentiall y severe complicati ons such as Clostridio ides difficile infection and anaphylaxi s. Non-Pharma cological treatment for coughin . Throat lozenges2. Hot tea3. Honey4. Smoking cessation5 . Avoidance of second hand smoke. Pharmacolo gical Treatment: 1. Robitussin or guafenesin 2. Antihistam ines3. dextrometh orphan I would plan on being seen again if any of the following symptoms develop:1. Fever (100.5)2. Shortness of breath3. Wheezing4. Worsening Cough. I would go to the ER if you develop:1. Severe Shortness of breath2. Chest Pain3. Wheezing4. Coughing up Blood Type 2 frank betes mellitus without complication 252534403 E11.9 Health Concerns Section Related Observation LastModified by Organization Detai ls LastModified Time None Recorded Concern Status LastModified by Organization Details LastModified Time None Recorded Advance Directives Directive None Recorded Payers Encounter Date Sequence Insurance Name Policy Number Policy Daniels Covered Member ID Daniels Member ID Guarantor Name 11/02/2019 1 [facility] [id number] Malia Solowinski [id number] Malia Solowinska 02/01/2024 2 [place]: [employer] Malia Solowinska [id number] Malia Solowinska 02/01/2024 1 [facility] [id number] Malia Solowinski [id number] Malia Solowinska 02/24/2024 2 [place] [employer] Malia Solowinska [id number] Malia Solowinska 02/24/2024 1 [facility] ([facility] [id number] Malia Solowinski [id number] Malia Solowinska Notes Date Note Type Note Provider Name and Address Organization Details Recorded Time 4 text/html CoughReported bypatient.source of patient informationInformation obtained from patient; Patient arrived at Urgent Care ambulatory; learning styles: auditory Quality:harsh;dry; intermittent; symptoms worse with lying down Severity:worsening;pain with cough; moderate Duration:constant; symptoms lasting over 2 weeks Timing:worsening; gradual Context:Patient denies vaping; non-smoker;history of bronchitis Modifying Factors:at night Associated Symptoms:no fever; no chills; no chest pain; no heartburn; no nausea; no vomiting; no edema; no agitation; no wheezing; no post nasal drip;hurts to breath Aamir Jurado NP [address] [place], [address], [place] - [facility] 02/01/2024 09:27:27 4 text/html CoughReported bypatient.source of patient informationInformation obtained from patient; Patient arrived at Urgent Care ambulatory; learning styles: auditory; Patient came back stating her cough is back .previously was treated with prednisone with good effect . patient stating her blood sugar is under good control and need prednisone for more then 3 days . Quality:harsh;dry; intermittent; symptoms worse with lying down Severity:worsening;pain with cough; moderate Duration:constant; symptoms lasting over 2 weeks Timing:worsening; gradual Context:Patient denies vaping; non-smoker;history of bronchitis Modifying Factors:at night Associated Symptoms:no fever; no chills; no chest pain; no heartburn; no nausea; no vomiting; no edema; no agitation; no wheezing; no post nasal drip;hurts to breath Aamir Jurado NP [address] [place], [address], [place] - [facility] 02/24/2024 15:11:13 OBGyn Episode No OBEpisode recorded.
--- OUTSIDE RECORDS SUMMARY | 2024-12-08 10:44 | XMS_ITS | Clinical Summary ---
Author Organization [facility] it Address [address] [place] [address] Care Team Providers Care Edge Molder Name Role Phone Nat Cotton MD Primary Care Provider [phone] Medical History Medical History Date Comments Essential hypertension, benign 08/04/2005 D X:Essential hypertension, benign Family History Medical History Relation Name Comments Other: healthy Father Other: healthy Mother Relation Name Status Comments Father Mother Social History Tobacco Use Types Packs/Day Years Used Date Smoking Tobacco: Never Alcohol Use Standard Drinks/Week Comments Yes 0 (1 standard drink = 0.6 oz pur e alcohol) Comments Unknown Sex and Gender Information Value Date Recorded Sex Assigned at Not on file Legal Sex Female 7:03 AM EST Gender Identity Not on file Sexual Orientation Not on file Obstetrics History Plan of Treatment Health Maintenance Due Date Last Done Comments Breast Cancer Screening 1955 DTaP,Tdap,and Td Vaccines (1 - Tdap) 1976 Pneumococcal Vaccine: 50+ Ye ars (1 of 1 - PCV) 2007 Zoster Vaccines (1 of 2) 2007 Cholesterol Screening (Lipid Panel) 08/06/2022 Colorectal Cancer Screening: Colonoscopy 08/06/2022 Depression Screening 08/06/2022 Hepatitis C Screening 08/06/2022 Osteoporosis Screening (Bone Density Screening) 08/06/2022 Social Influencers of Health Screening 08/06/2022 Hypertension/CHF/CAD Annual BMP Blood Test 08/15/2022 Falls Risk Assessment 2022 COVID-19 Vaccine (1 - 2023-2 5 season) 2024 Influenza Vaccine (#1) 2024 RSV Immunization Adult Patie nts (1 - 1-dose 75+ series) 2032 HIB Vaccines Aged Out No longer eligi ble based on patient's age to complete this topic HPV Vaccines Aged Out No longer eligi ble based on patient's age to complete this topic Hepatitis A Vaccines Aged Out No long er eligible based on patient's age to complete this topic Hepatitis B Vaccines Aged Out No long er eligible based on patient's age to complete this topic IPV Vaccines Aged Out No longer eligi ble based on patient's age to complete this topic MMR Vaccines Aged Out No longer eligi ble based on patient's age to complete this topic Meningococcal ACWY Vaccine Aged Out N o longer eligible based on patient's age to complete this topic Meningococcal B Vacine Aged Out No lo nger eligible based on patient's age to complete this topic RSV Immunization Patients Un corie 20 months Aged Out No longer eligible b ased on patient's age to complete this topic Varicella Vaccines Aged Out No longer eligible based on patient's age to complete this topic Care Teams Edge Molder Relationship Specialty Start Date End Date Nat Cotton MD PCP - General 11/03/17
== END 2024-12-08 10:11 | disposition home or self-care (01) ==
LOC: HO.HMCC 09:29
PROVIDERS: PCP Internal Medicine; Visit Provider Internal Medicine
DX: M25.551 Pain in right hip (principal); M25.552 Pain in left hip; K21.9 Gastro-esophageal reflux disease without esophagitis; R13.10 Dysphagia, unspecified; E11.9 Type 2 diabetes mellitus without complications; I10 Essential (primary) hypertension; E78.5 Hyperlipidemia, unspecified

== ENCOUNTER → 2024-12-08 10:15 | Outpatient (BNV) | payer OTHER, MEDICARE, SELFPAY | PROVIDERS: PCP Internal Medicine; Visit Provider Radiology Diagnostic Radiology | DX: M25.551 Pain in right hip (principal) | CPT/HCPCS: 73521 ==

== ENCOUNTER 2025-04-02 06:28 | Outpatient (REF) | payer OTHER, MEDICARE, SELFPAY ==
--- OUTSIDE RECORDS SUMMARY | 2025-04-02 06:31 | XMS_ITS | Clinical Summary ---
Author Organization [facility] it Address [address] [place] [address] Care Team Providers Care Configuration Management Consultant Name Role Phone Nat Cotton MD Primary Care Provider [phone] Medical History Medical History Date Comments Essential [...] Panel) 08/06/2022 Colorectal Cancer Screening: Colonoscopy 08/06/2022 Hepatitis C Screening 08/06/2022 Osteoporosis Screening (Bone Density Screening) 08/06/2022 Social Influencers of Health Screening 08/06/2022 Hypertension/CHF/CAD Annual BMP Blood Test 08/15/2022 Falls Risk Assessment 2022 COVID-19 Vaccine ( - 2023-2 5 season) 2024 Depression Screening 09/03/2024 Influenza Vaccine (#1) 2025 RSV Immunization Adult Patie nts (1 [...] age to complete this topic Meningococcal B Vaccine Aged Out No l onger eligible based on patient's age to complete this topic RSV Immunization Patients Un corie 20 months Aged Out No longer eligible b ased on patient's age to complete this topic Varicella Vaccines Aged Out No longer eligible based on patient's age to complete this topic Care Teams Configuration Management Consultant Relationship Specialty Start Date End Date Nat Cotton MD PCP - General 11/03/17
[2025-04-02 10:03] LABS: MANUAL DIFF FLAG NO
[2025-04-02 10:20] LABS: Hemoglobin A1C 202.4599 umol/L; Total Hemoglobin (HGBA1C) 3400.8847 umol/L
[2025-04-02 10:30] LABS: Hematocrit 39.9 % (37.0-47.0); Hemoglobin 12.9 g/dl (12.0-16.0); Imm Gran Abs Auto 0.03 X10*3/uL (0.00-0.03); Imm Gran Pct Auto 0.4 % (0.0-0.4); Lymphocytes Absolute Auto 1.9 X10*3/uL (1.2-4.9); Mean Corpuscular HGB Conc 32.3 g/dl (31.0-35.0); Mean Corpuscular Hemoglobin 26.5 pg (27.0-33.0); Mean Corpuscular Volume 81.9 fL (80.0-98.0); NRBC Abs Auto 0.000 X10*3/uL (0.0-0.012); NRBC Pct Auto 0.0 /100WBC (0.0-0.2); Platelet Count 242 X10*3/uL (160-400); Red Blood Count 4.87 X10*6/uL (4.20-5.50); White Blood Count 7.9 X10*3/uL (4.8-10.8)
[2025-04-02 10:33] LABS: Alanine Aminotransferase 23 U/L (0-31); Albumin Level 4.3 g/dL (3.5-5.0); Alkaline Phosphatase 84 U/L (39-117); Anion Gap 14 (12-20); Aspartate Amino Transferase 27 U/L (5-31); Blood Urea Nitrogen 17 mg/dL (9-16); Calcium 9.0 mg/dL (8.4-10.2); Carbon Dioxide 25 mmol/L (22-29); Chloride 104 mmol/L (96-108); Cholesterol 134 mg/dL (<200); Estimated Glomerular Filt Rate > 60; HDL Cholesterol 45 mg/dL (>40); Potassium 4.5 mmol/L (3.3-5.1); Sodium 138 mmol/L (135-145); Total Protein 7.4 g/dL (6.5-8.0); Triglycerides 107 mg/dL (<150)
[2025-04-02 11:01] LABS: Microalbum/Creatinine Ratio Ur 12.3 ug/mg cr (<30)
== END 2025-04-02 06:29 | disposition home or self-care (01) ==
LOC: HO.HMGCLDS 06:28
PROVIDERS: PCP Internal Medicine; Visit Provider Internal Medicine
DX: E11.9 Type 2 diabetes mellitus without complications (principal); I10 Essential (primary) hypertension; E78.5 Hyperlipidemia, unspecified
CPT/HCPCS: 36415; 80053; 80061; 82043; 82570; 83036; 85025

== ENCOUNTER 2025-04-07 10:32 | Outpatient (AMB) | payer OTHER, MEDICARE, SELFPAY ==
--- NOTE | 2025-04-07 10:40 | A.OFFPC_ITS ---
Vital Signs 04/07/25 10:41 Height 5 ft 1 in Weight 170 lb BMI 32.1 BP 120/70 Blood Pressure Location Lt brachial Position Sitting Respiration 18 Pulse 78 Pulse Source Pulse Oximeter Temp 97.9 F Temp Source Oral Pulse Oximetry (%) 99 Oxygen Delivery Method Room Air Intake Visit Reasons: 2 months follow up Intake Note: Pt is here today for 2 months follow up visit. Allergies lisinopril Allergy (Unknown, Verified 04/07/25 10:46) cough dulaglutide ([facility]) Adverse Reaction (Verified 04/07/25 10:46) chills and sweats Medication List - Last Reconciled 04/07/25 by Nat Cotton MD albuterol sulfate 90 mcg/actuation 2 puffs inhalation Q6H PRN amlodipine 5 mg PO BID atorvastatin 40 mg PO DAILY cholecalciferol (vitamin D3) 50 mcg PO DAILY fexofenadine 180 mg PO DAILY glimepiride 2 mg PO DAILY hydrochlorothiazide 12.5 mg PO DAILY irbesartan 300 mg PO DAILY metformin 1,000 mg PO BID Mounjaro (tirzepatide) 2.5 mg (0.5 mL) subcut QWEEK NS pantoprazole 40 mg PO QAM triamcinolone acetonide 0.025% 1 appl topical DAILY Tobacco use date assessed: 04/07/25 Fall risk assessment: No Falls in past year Last assessed Fall Risk: 04/07/25 Dental Screening Dental Screen Date: 04/07/25 Did you have a dental visit in the last 12 months?: Yes Did you have a dental problem in the last 6 months where you did not have access to dental care?: No Was dental information given to patient?: Patient has dentist HPI 2 months follow up HPI Details Patient presents for the follow-up on hypertension type 2 diabetes hyperlipidemia. She reports elevated blood glucose reading the last few weeks up to 150 in the morning. Patient has been under lot of stress because her ex daughter in-law was diagnosed with abdominal mass question of pancreatic cancer. She reports persistent dysphagia to solids and has been eating small pieces of food and drinking a lot of fluids. Patient has an appointment with GI in May. Patient has been taking PPI for chronic GERD [facility] Medical History Rash Dysphagia [place] of foot Annual physical exam Normal Pap smear Mammogram normal History of mammogram Osteoarthritis Type 2 diabetes mellitus Hyperlipidemia Hypertension Surgical History H/O colonoscopy No pertinent past surgical history Family History Father Lung cancer Mother No problems noted. Son No problems noted. Son No problems noted. Paternal Uncle Hx of colonoscopy Maternal Grandfather Stomach cancer Social History Housing: House Alcohol intake: never Patient Tobacco Use Status: Never used Tobacco e-Cigarette/Vaping Use: Never Used service: No Current occupational status: employed Cognitive needs: No (wears glasses) Hearing needs: No Vision needs: Yes (wearing glasses ) Questionnaire Thrive Questionnaire Date Thrive assessed: 12/08/24 I am a: Patient What is your living situation today?: I have a steady place to live Within the past 12 months, did the food you bought not last and you didn't have the money to get more?: Never true Within the past 12 months, did you worry whether your food would run out before you got money to buy more?: Never true Do you have trouble paying for medicines?: No Do you have trouble getting transportation to medical appointments?: No Do you have trouble paying your heating and electricity bill?: No Do you have trouble taking care of your child, family member or friend?: No Do you have trouble with day-to-day activities such as bathing, preparing meals, shopping, managing finances, etc.?: No Are you currently unemployed and looking for a job?: No Are you interested in more education?: No THRIVE Score: 0 ODESSA-7 AMB Questionnaire ODESSA-7 Date ODESSA - 7 assessed: 12/08/24 Source: Developed by Drs. Mikhail Baca, Julienne Murrell, Brian Scott and colleagues, with an educational patrick from [email or web address]. Review of Systems Const All systems reviewed & are unremarkable except as noted in HPI and below Eyes Reports no additional complaints ENT Reports no additional complaints Card Reports no additional complaints Resp Reports no additional complaints GI Reports no additional complaints Reports no additional complaints Physical exam (Primary Care) Vital Signs: Last Vital Signs Temp 97.9 F 04/07/25 10:41 Pulse 78 04/07/25 10:41 Resp 18 04/07/25 10:41 BP 120/70 04/07/25 10:41 Pulse Ox 99 04/07/25 10:41 Oxygen Delivery Method Room Air 04/07/25 10:41 BMI result Body Mass Index 32.1 Tobacco/Smoking Status: Tobacco use Status Tobacco use date assessed 04/07/25 04/07/25 10:47 Patient Tobacco Use Status Never used Tobacco 04/07/25 10:47 e-Cigarette/Vaping Use Never Used 04/07/25 10:47 Thrive Assessment: Date of Thrive Assessment Date Thrive assessed 12/08/24 04/07/25 10:47 Const General: no acute distress HENMT Head: Yes normal to inspection Resp Effort & Inspection: normal respiratory effort Auscultation: clear to auscultation bilaterally Cardio Rhythm: regular rhythm Heart sounds: S1 normal heart sound present and S2 normal heart sound present GI Inspection: Yes normal to inspection Palpation (GI): Soft to palpation Percussion: Yes normal to percussion Auscultation: normal bowel sounds Coding Level of Care Code Est Pt Level 4 (29104) Complex EM visit Add On G2211 Diagnoses Pharyngoesophageal dysphagia R13.14 Dysphagia type: pharyngoesophageal phase Type 2 diabetes mellitus E11.9 Hypertension I10 Assessment & Plan Assessment & Plan (1) Dysphagia: Code(s): R13.10 - Dysphagia, unspecified Category: Medical Qualifiers: Dysphagia type: pharyngoesophageal phase Qualified Code(s): R13.14 - Dysphagia, pharyngoesophageal phase Plan: Check barium swallow, Continue PPI follow-up with GI (2) Type 2 diabetes mellitus: Comment: Insurance did not cover Farxiga or Jardiance, Trulicity caused hypoglycemia and tremor Code(s): E11.9 - Type 2 diabetes mellitus without complications Category: Medical Plan: A1c is 7.6. ADA diet increase physical activity weight loss discussed with the patient she will continue metformin glimepiride and Mounjaro 2.5 mg weekly will be started. Patient will follow-up in 3 months with a fasting labs before (3) Hypertension: Code(s): I10 - Essential (primary) hypertension Category: Medical Plan: Continue current medications Orders: Orders Complete Blood Count Auto Diff 3 Months E11.9 - Type 2 diabetes mellitus without complications, I10 - Essential (primary) hypertension [place] barium swallow with air Today R13.14 - Dysphagia, pharyngoesophageal phase Comprehensive [place]. Panel Fast 3 Months E11.9 - Type 2 diabetes mellitus without complications, I10 - Essential (primary) hypertension Hemoglobin A1c 3 Months E11.9 - Type 2 diabetes mellitus without complications, I10 - Essential (primary) hypertension Medications: New Mounjaro (tirzepatide) 2.5 mg (0.5 mL) subcut QWEEK 2 mL 3RF NS
[2025-04-07 10:41] VITALS: BP 120/70; PULSE 78; RESP 18; TEMP 36.6; O2SAT 99; BMI 32.1
--- OUTSIDE RECORDS SUMMARY | 2025-04-07 11:13 | XMS_ITS | Clinical Summary ---
Author Organization [facility] it Address [address] [place] [address] Care Team Providers Care Permit Review Assistant Name Role Phone Nat Cotton MD Primary Care Provider Medical History Medical History Date Comments Essential [...] age to complete this topic Care Teams Permit Review Assistant Relationship Specialty Start Date End Date Nat Cotton MD PCP - General 11/03/17
== END 2025-04-07 11:11 | disposition home or self-care (01) ==
LOC: HO.HMCC 10:33
PROVIDERS: PCP Internal Medicine; Visit Provider Internal Medicine
DX: R13.14 Dysphagia, pharyngoesophageal phase (principal); E11.9 Type 2 diabetes mellitus without complications; I10 Essential (primary) hypertension

== ENCOUNTER 2025-07-01 07:37 | Outpatient (REF) | payer OTHER, MEDICARE, SELFPAY ==
--- OUTSIDE RECORDS SUMMARY | 2025-07-01 07:41 | XMS_ITS | Clinical Summary ---
Author Organization [facility] ity Address [address] [place] [address] Care Team Providers Care Futures Trader Name Role Phone Nat Cotton MD Primary Care Provider [phone] Medical History Medical History Date Comments Essential [...] 2007 Zoster Vaccines (1 of 2) 2007 Depression Screening 09/03/2024 COVID-19 Vaccine (1 - 2023-2 5 season) 2025 Influenza Vaccine (#1) 2025 RSV Immunization Adult [...] age to complete this topic Care Teams Futures Trader Relationship Specialty Start Date End Date Nat Cotton MD PCP - General 11/03/17
--- OUTSIDE RECORDS SUMMARY | 2025-07-01 07:41 | XMS_ITS | Data Portability ---
Author Organization KELI Bynum s, [facility] Address [address] [place] [address] Assessment No assessment recorded. Plan of Treatment Reminders Order Date Submit Date Provider Last Modified By Organization Details Last Modified Time Details Appointments None recorded. Lab rapid strep group A, throat 2023 024 [email or web address], [address] [place], [address], 4 09:27:11 rapid flu (A+B) 2023 024 [email or web address] [facility], [address] [place], [address], 4 09:27:10 streptococc us group A, culture, throat 2023 024 [facility], [address] [place] [address], [place], [address], 4 16:06:48 Referral None recorded. Procedures None recorded. Surgeries None recorded. Imaging XR, chest, 2 view 2023 024 [email or web address], [address] [place] [address], [place], [address], 4 09:27:05 Medication Orders prednisone 20 mg tablet 2023 024 [id number], [address] [place] [address], [place], [place], [id number], 4 15:08:29 fexofenadin e 180 mg tablet 2023 024 [facility], [address] [place], [place], [id number], 4 15:08:29 albuterol sulfate 2.5 mg/3 mL (0.083 %) solution for nebulizatio n 2023 024 [email or web address] Not available 4 09:27:05 ipratropium bromide 0.02 % solution for inhalation 2023 024 [email or web address] Not available 4 09:27:06 albuterol sulfate HFA 90 mcg/actuati on aerosol inhaler [address] [id number], [address] [place], [place], [id number], 4 09:27:05 prednisone 20 mg tablet [address] [facility]57738, [address] [place], [place], [id number], 4 09:27:05 benzonatate 200 mg capsule [address] [facility]43446, [address] [place], [place], [id number], 4 09:27:05 Allergy Relief (fluticason e) 50 mcg/actuati on nasal spray,suspe nsion [address] [facility]58178, [address] [place], [place], [id number], 4 09:27:05 Patient TargetsNo targets recorded. Patient Instructions Encounter Date Encounter Id Patient Instructions Last Modified By Organization Details Last Modified Time 02/01/2024 [id number] specimen collection & handling* Not available 02/01/2024 09:27:09 peak flow* [email or web address] Not available 01/31 09:27:08 Patient is stating [...] further evaluation. Not available 02/01/2024 09:24:44 02/24/2024 [id number] type 2 diabetes: care instructions Not available 02/24/2024 15:10:54 bronchitis: care instructions [email or web address] Not available 02/24/2024 15:08:21 Reason for Referral None Reported. Results Created Date Observation Date Name Description Value Unit Range Abnormal Flag Note LastModifiedBy Organization Detail LastModifiedTime 02/01/2002/04/2024 BETA STREP GP A CULTU RE beta strep gp A culture NEGATI VE Refer ence Range : Negat pal Not Available [facility] ([facility]) [address] [facility], [place], [address], 02/04/2024 16:06:48 02/01/2002/01/2024 peak flow* Pre (L/min) 110 Not Available [address] [place], [address], 02/01/2024 08:48:53 02/01/2002/01/2024 peak flow* Post (L/min) 130 Not Available [address] [place], [address], 02/01/2024 08:48:53 02/01/2002/01/2024 peak flow* Pulse 73 Not Available [facility] [address] [place], [address], 02/01/2024 08:48:53 02/01/20 24 02/01/2024 peak flow* Oxygen Saturation 99% Not Available [facility] [address] [place], [address], 02/01/2024 08:48:53 02/01/20 24 02/01/2024 speci men colle ction & handl ing* Completed? Succes sfully Not Available [address] [place] [address] [address] [place], [address], 02/01/2024 08:48:07 02/01/20 24 02/01/2024 rapid flu (A+B) Unknown Analyte negati ve Not Available [address] [place] [address] [place] [address], [address], 02/01/2024 08:44:02 02/01/20 24 02/01/2024 rapid flu (A+B) Unknown Analyte negati ve Not Available [address] [place] [address] [place] [address], [address], 02/01/2024 08:44:02 02/01/20 24 02/01/2024 rapid flu (A+B) Unknown Analyte yes Not Available [address] [place] [address] [place] [address], [address], 02/01/2024 08:44:02 02/01/20 24 02/01/2024 rapid strep group A, throa t Unknown Analyte negati ve Not Available [address] [place] [address] [address] [place], [address], 02/01/2024 08:43:26 02/01/20 24 02/01/2024 rapid strep group A, throa t Unknown Analyte yes Not Available [id number] [place] [address] [address] [place], [address], 02/01/2024 08:43:26 02/01/20 24 02/01/2024 XR, chest , 2 view No observ ation record ed. [email or web address] [facility] [address] [place], [address], 02/01/2024 09:30:12 Result Notes None recorded. Problems Name Problem SNOMED Code Status Onset Date Resolution Date Notes Provider Name and Address Organization Details Recorded Time Diabetes mellitus 02125742 Active Cordelia Young null, [place] - [facility] 4 08:42:02 Arthritis 3966215 Active Cordelia Young null, PA - [facility] 4 08:42:17 Acute bronchitis 05375710 Active 2023 Aamir Jurado, EDUCATION DIAGNOSTICIAN [address] , [place], [address], [place] - [facility] 4 08:47:58 Hyperglycem ia due to type 2 diabetes mellitus 9332513071993 09 Active 2023 Aamir Jurado, EDUCATION DIAGNOSTICIAN [address] , [place], [address], [place] - [facility] 4 09:19:11 Type 2 diabetes mellitus without complicatio n 066858004 Active 2023 Aamir Jurado, EDUCATION DIAGNOSTICIAN [address] , [place], [address], [place] - [facility] 4 15:10:47 Problem Notes None recorded. Medical Equipment None Reported. Allergies Allergen ID Allergen Name Allergen Category Reaction Reaction Severity Criticality Documentation Date Start Date Code Code System Note Provider Name and Address Organization Details Recorded Time 653466 lisinopri l medicatio n Not available Not available Not available 02/01/2024 13189 RxNorm Cordelia owens, PA - [facility] 4 08:38:43 Medications Name [...] Heart rate Respiratory rate Body temperature Systolic And Diastolic Provider Name and Address Organization Details Last Updated DateTime 4 152.4 cm 31.2 kg/m2 96989.7 8 g 99 % 99 % 73 /min 16 /min 98 [degF] 114/73 mm[Hg] Cordelia Villa [facility] 4 08:37:48 Date Recorded Body height Body mass index (BMI) Body weight Respiratory rate Pain severity - 0-10 verbal numeric rating [Score] - Reported Oxygen saturation Oxygen saturation in Arterial blood by Pulse oximetry Heart rate Body temperature Systolic And Diastolic Provider Name and Address Organization Details Last Updated DateTime 4 152.4 cm 31.2 kg/m2 85742.7 8 g 18 /min 5 96 % 96 % 81 /min 98 [degF] 120/79 mm[Hg] Dueyn Villa [facility] 4 15:00:28 Social History Question Answer Notes LastModified by Organizat ion Details LastModified Time Tobacco Smoking Status Never Smoker KELI Davis [facility] 02/01/2024 08:43:12 What Is The Highest Grade Or Level Of School You Have Completed Or The Highest Degree You Have Received? MC45688-4 [email or web address] Information not available 02/24/2024 Have You Had A Flu Shot This Season? No [email or web address] Information not available 02/24/2024 If No, Would You Like A Flu Shot Today? No [email or web address] Information not available 02/24/2024 Have You Had Direct Contact, Or Contact During Intimacy, With Monkeypox Rash, Scabs, Or Body Fluids From A Person With Monkeypox? No [email or web address] Information not available 02/24/2024 What Was The Date Of Your Most Recent Tobacco Screening? 02/01/2024 Information not available 02/01/2024 Have You Recently Traveled Abroad? No [email or web address] Information not available 02/24/2024 Are You Currently In School? No [email or web address] Information not available 02/24/2024 Sex: Unknown Functional Status Question Answer Note LastModified by Organizat ion Details LastModified Time Do you use any illicit or recreational drugs? No Information not available 02/01/2024 Do you or have you ever used any other forms of tobacco or nicotine? No Information not available 02/01/2024 What is your level of alcohol consumption? None Information not available 02/01/2024 Are you currently employed? Yes Information not available 02/01/2024 Mental Status None recorded. Family History Relationship [...] Vaccine Type Date Status Note Provider Nam e and Address Organization Details Recorded Time Influenza, split virus, quadrivalent, preservative 8 completed Cordelia owens PA - [facility] 02/01/2024 08:38:16 Influenza, split virus, quadrivalent, preservative 1 completed Cordelia owens PA - [facility] 02/01/2024 08:38:16 COVID-19, [...] Diagnosis SNOMED-CT Code Diagnosis ICD10 Code Diagnosis IMO Codes Diagnosis Note [id number] [address] [address] [place] [address] 11/02/2019 08:23:42 11/02/2019 09:30:55 [id number] Aamir Adrien, EDUCATION DIAGNOSTICIAN [address] [facility] [address] [place] [address] 02/01/2024 08:20:04 02/01/2024 09:26:30 Acute bronchitis 24229529 J20.9 Acute bronchitis is a common clinical [...] acute bronchitis is a national and internatio [facility] health care priority. In most patients, the [...] yanci due to type 2 diabetes mellitus [id number] 97555 E11.65 Health Education and GuidanceDi abetes Type [...] triglyceri lizeth at least once a year [id number] Aamir Jurado, EDUCATION DIAGNOSTICIAN [address] [facility] [place]NA gomez [address] 02/24/2024 14:01:58 02/24/2024 15:12:46 Acute bronchitis 96668388 J20.9 Acute bronchitis is a common clinical [...] acute bronchitis is a national and internatio [facility] health care priority. In most patients, the [...] Type 2 frank betes mellitus without complication 882868034 E11.9 Health Concerns Section Related Observation LastModified by Organization Detai ls LastModified Time None Recorded Concern Status LastModified by Organization Details LastModified Time None Recorded Advance Directives Directive None Recorded Payers Insurance Date Sequence Insurance Name Policy Number Policy Daniels Covered Member ID Daniels Member ID Guarantor Name 02/24/2024 2 MEDICARE B-[place]: [facility] [employer] Malia Joy [id number] Malia Joy 02/24/2024 1 [facility] [id number] Malia Barakat [id number] Malia Joy 02/01/2024 1 [facility] [id number] Malia Barakat [id number] Malia Joy Notes Date Note Type Note Provider Name and Address Organization Details Recorded Time 02/01/20 24 text/ht ml CoughReported by PatientHPIFor quality, patient reportsharshanddrybut reportsintermittentandsymptoms worse with lying down. For severity, patient reportsworseningandpain with coughbut reportsmoderate. For timing, patient reportsworseningbut reportsgradual. For context, patient reportshistory of bronchitisbut reportspatient denies vapingandnon-smoker. For associated symptoms, patient reportshurts to breathbut reportsno fever,no chills,no chest pain,no heartburn,no nausea,no vomiting,no edema,no agitation,no wheezing, andno post nasal drip. For source of patient information, patient reportsinformation obtained from patient,patient arrived at urgent care ambulatory, andlearning styles: auditory. For duration, patient reportsconstantandsymptoms lasting over 2 weeks. For modifying factors, patient reportsat night. Aamir Jurado NP [address] [place], [address], [place] - [facility] 02/01/2024 09:27:27 02/24/20 24 text/ht ml CoughReported by PatientHPIFor quality, patient reportsharshanddrybut reportsintermittentandsymptoms worse with lying down. For severity, patient reportsworseningandpain with coughbut reportsmoderate. For timing, patient reportsworseningbut reportsgradual. For context, patient reportshistory of bronchitisbut reportspatient denies vapingandnon-smoker. For associated symptoms, patient reportshurts to breathbut reportsno fever,no chills,no chest pain,no heartburn,no nausea,no vomiting,no edema,no agitation,no wheezing, andno post nasal drip. For source of patient information, patient reportsinformation obtained from patient,patient arrived at urgent care ambulatory, andlearning styles: auditory(patient came back stating her cough is back .previously was treated with prednisone with good effect . patient stating her blood sugar is under good control and need prednisone for more then 3 days .). For duration, patient reportsconstantandsymptoms lasting over 2 weeks. For modifying factors, patient reportsat night. Aamir Jurado NP [address] [place], [address], [place] - [facility] 02/24/2024 15:11:13 OBGyn Episode No OBEpisode recorded.
--- OUTSIDE RECORDS SUMMARY | 2025-07-01 07:41 | XMS_ITS | Encounter Summary ---
Author Organization [facility] Address [address] [facility] [address] [place] [address] Phone Care Team Providers Care Dental Office Assistant Name Role Phone Unavailable Primary Care Provider Unavailabl e Encounter Details Date Type Department Care Team (Late st Contact Info) Description 06/09/2025 Telephone [facility] [address] [place] [address] Julienne Urias, BINDU [address] [address] Social History Tobacco Use Types Packs/Day Years Used Date Smoking Tobacco: Never Assessed Comments Unknown Sex and Gender Information Value Date Recorded Sex Assigned at Not on file Legal Sex Female 3:55 PM EDT Gender Identity Not on file Sexual Orientation Not on file documented as of this encounter Progress Notes * Silvia Duggan - 06/10/2025 8:23 AM EDT Patient needs a follow up appointment after EGD. * Silvia Duggan - 06/09/2025 11:07 AM EDT EGD with possible dilation F45.8 Globus Sensation documented in this encounter Plan of Treatment Not on file documented as of this encounter Visit Diagnoses Not on filedocumented in this encounter Additional Source Comments The information contained in this document represents components of the legal health record. It is not the complete legal health record.[facility]
--- OUTSIDE RECORDS SUMMARY | 2025-07-01 07:41 | XMS_ITS | Clinical Summary ---
Author Organization [facility] Address [address] [facility] [address] [place] [address] Phone Care Team Providers Care Sanitary Aide Name Role Phone Unavailable Primary Care Provider Unavailabl e Encounters Date Type Department Care Team Description 06/09/2025 Telephone [facility] [address] [place], [place] [phone] Julienne Urias CNP from Last 3 Months Social History Tobacco Use Types Packs/Day Years Used Date Smoking Tobacco: Never Assessed Comments Unknown Sex and Gender Information Value Date Recorded Sex Assigned at Not on file Legal Sex Female 3:55 PM EDT Gender Identity Not on file Sexual Orientation Not on file Plan of Treatment Not on file Medical Devices Not on file Additional Source Comments The information contained in this document represents components of the legal health record. It is not the complete legal health record.[facility]
[2025-07-01 09:57] LABS: MANUAL DIFF FLAG NO
[2025-07-01 10:07] LABS: Hematocrit 41.0 % (37.0-47.0); Hemoglobin 12.9 g/dl (12.0-16.0); Imm Gran Abs Auto 0.02 X10*3/uL (0.00-0.03); Imm Gran Pct Auto 0.3 % (0.0-0.4); Lymphocytes Absolute Auto 1.8 X10*3/uL (1.2-4.9); Mean Corpuscular HGB Conc 31.5 g/dl (31.0-35.0); Mean Corpuscular Hemoglobin 25.9 pg (27.0-33.0); Mean Corpuscular Volume 82.2 fL (80.0-98.0); NRBC Abs Auto 0.000 X10*3/uL (0.0-0.012); NRBC Pct Auto 0.0 /100WBC (0.0-0.2); Platelet Count 265 X10*3/uL (160-400); Red Blood Count 4.99 X10*6/uL (4.20-5.50); White Blood Count 8.0 X10*3/uL (4.8-10.8)
[2025-07-01 10:33] LABS: Alanine Aminotransferase 25 U/L (0-31); Albumin Level 4.5 g/dL (3.5-5.0); Alkaline Phosphatase 96 U/L (39-117); Anion Gap 12 (12-20); Aspartate Amino Transferase 25 U/L (5-31); Blood Urea Nitrogen 14 mg/dL (9-16); Calcium 9.7 mg/dL (8.4-10.2); Carbon Dioxide 29 mmol/L (22-29); Chloride 104 mmol/L (96-108); Estimated Glomerular Filt Rate > 60; Potassium 4.8 mmol/L (3.3-5.1); Sodium 140 mmol/L (135-145); Total Protein 7.8 g/dL (6.5-8.0)
== END 2025-07-01 07:38 | disposition home or self-care (01) ==
LOC: HO.HMGCLDS 07:37
PROVIDERS: PCP Internal Medicine; Visit Provider Internal Medicine
DX: E11.9 Type 2 diabetes mellitus without complications (principal); I10 Essential (primary) hypertension
CPT/HCPCS: 36415; 80053; 83036; 85025

== ENCOUNTER 2025-07-06 09:47 | Outpatient (AMB) | payer OTHER, MEDICARE, SELFPAY ==
[2025-07-06 09:49] VITALS: BP 108/66; PULSE 81; RESP 18; TEMP 36.7; O2SAT 99; BMI 31.7
--- NOTE | 2025-07-06 09:49 | MHC.PC.OV ---
Vital Signs 07/06/25 09:49 Height 5 ft 1 in Weight 168 lb BMI 31.7 BP 108/66 Blood Pressure Location Rt brachial Position Sitting Respiration 18 Pulse 81 Pulse Source Pulse Oximeter Temp 98.0 F Temp Source Oral Pulse Oximetry (%) 99 Oxygen Delivery Method Room Air Intake Visit Reasons: 3m follow up Intake Note: Pt is here today for 3 months follow up visit on DM. Pt states that she has been having pain only on the L side of her head and neck. Allergies lisinopril Allergy (Unknown, Verified 07/06/25 09:50) cough tirzepatide (From Mounjaro) Adverse Reaction (Intermediate, Verified 07/06/25 12:30) Diarrhea [facility] Adverse Reaction (Verified 07/06/25 09:50) chills and sweats Medication List - Last Reconciled 07/06/25 by Nat Cotton MD albuterol sulfate 90 mcg/actuation 2 puffs inhalation Q6H PRN amlodipine 5 mg PO BID atorvastatin 40 mg PO DAILY cholecalciferol (vitamin D3) 50 mcg PO DAILY fexofenadine 180 mg PO DAILY glimepiride 2 mg PO DAILY hydrochlorothiazide 12.5 mg PO DAILY irbesartan 300 mg PO DAILY metformin 1,000 mg PO BID omeprazole 20 mg PO DAILY triamcinolone acetonide 0.025% 1 appl topical DAILY Tobacco use date assessed: 07/06/25 Fall risk assessment: No Falls in past year Last assessed Fall Risk: 07/06/25 Dental Screening Dental Screen Date: 04/07/25 HPI 3m follow up HPI Details Pt presents for f/u HTN, DM 2, hyperlipid, stable on meds.Pt is under a lot stress because of daughter in law dxd with stage 4 liver ca. She reports intermittent right upper quadrant abdominal discomfort not related to food intake with occasionally nausea but no vomiting. Patient was seen by GI and will have EGD and colonoscopy. Patient was started on PPI and H2 paulie without significant change in her symptoms. [facility] Medical History Rash Dysphagia [place] of foot Annual physical exam Normal Pap smear Mammogram normal History of mammogram Osteoarthritis Type 2 diabetes mellitus Hyperlipidemia Hypertension Surgical History H/O colonoscopy No pertinent past surgical history Family History Father Lung cancer Mother No problems noted. Son No problems noted. Son No problems noted. Paternal Uncle Hx of colonoscopy Maternal Grandfather Stomach cancer Social History Housing: House Alcohol intake: never Patient Tobacco Use Status: Never used Tobacco e-Cigarette/Vaping Use: Never Used service: No Current occupational status: employed Cognitive needs: No (wears glasses) Hearing needs: No Vision needs: Yes (wearing glasses ) Questionnaire Thrive Questionnaire Date Thrive assessed: 12/08/24 I am a: Patient What is your living situation today?: I have a steady place to live Within the past 12 months, did the food you bought not last and you didn't have the money to get more?: Never true Within the past 12 months, did you worry whether your food would run out before you got money to buy more?: Never true Do you have trouble paying for medicines?: No Do you have trouble getting transportation to medical appointments?: No Do you have trouble paying your heating and electricity bill?: No Do you have trouble taking care of your child, family member or friend?: No Do you have trouble with day-to-day activities such as bathing, preparing meals, shopping, managing finances, etc.?: No Are you currently unemployed and looking for a job?: No Are you interested in more education?: No THRIVE Score: 0 ODESSA-7 AMB Questionnaire ODESSA-7 Date ODESSA - 7 assessed: 12/08/24 Source: Developed by Drs. Mikhail Baca, Julienne Murrell, Brian Scott and colleagues, with an educational patrick from [employer]. Review of Systems Const All systems reviewed & are unremarkable except as noted in HPI and below Eyes Reports no additional complaints ENT Reports no additional complaints Card Reports no additional complaints Resp Reports no additional complaints GI Reports no additional complaints Reports no additional complaints Physical exam (Primary Care) Vital Signs: Last Vital Signs Temp 98.0 F 07/06/25 09:49 Pulse 81 07/06/25 09:49 Resp 18 07/06/25 09:49 BP 108/66 07/06/25 09:49 Pulse Ox 99 07/06/25 09:49 Oxygen Delivery Method Room Air 07/06/25 09:49 BMI result Body Mass Index 31.7 Tobacco/Smoking Status: Tobacco use Status Tobacco use date assessed 07/06/25 07/06/25 09:51 Patient Tobacco Use Status Never used Tobacco 07/06/25 09:51 e-Cigarette/Vaping Use Never Used 07/06/25 09:49 Thrive Assessment: Date of Thrive Assessment Date Thrive assessed 12/08/24 07/06/25 09:49 Const General: no acute distress HENMT Head: Yes normal to inspection Face and sinus: Yes normal facial exam Mouth: Normal oral and palatal mucosa present Eyes General: appearance normal, both eyes and all related structures Neck Neck: Yes no lymphadenopathy and Yes supple Resp Effort & Inspection: normal respiratory effort Auscultation: clear to auscultation bilaterally Cardio Rhythm: regular rhythm Heart sounds: S1 normal heart sound present and S2 normal heart sound present GI Inspection: Yes normal to inspection Percussion: Yes normal to percussion Auscultation: normal bowel sounds Coding Level of Care Code Est Pt Level 4 (01697) Diagnoses Abdominal pain R10.9 Hypertension I10 Hyperlipidemia E78.5 Type 2 diabetes mellitus E11.9 Assessment & Plan Assessment & Plan (1) Abdominal pain: Code(s): R10.9 - Unspecified abdominal pain Category: Medical Plan: obtain abd US to r/o gall stones, patient will follow-up with GI for EGD and colonoscopy. Continue PPI (2) Hypertension: Code(s): I10 - Essential (primary) hypertension Category: Medical Plan: cont meds (3) Hyperlipidemia: Code(s): E78.5 - Hyperlipidemia, unspecified Category: Medical Plan: cont statin (4) Type 2 diabetes mellitus: Comment: Insurance did not cover Farxiga or Jardiance, Trulicity caused hypoglycemia and tremor Code(s): E11.9 - Type 2 diabetes mellitus without complications Category: Medical Plan: A1c is 6.9, cont ADA, increase physical activity weight loss discussed with the patient she will continue medications and follow-up in 4 months Orders: Orders Microalbumin, Random (w Creat) 4 Months E11.9 - Type 2 diabetes mellitus without complications, E78.5 - Hyperlipidemia, unspecified, I10 - Essential (primary) hypertension US abdomen limited Today R10.9 - Unspecified abdominal pain Comprehensive Erskine. Panel Fast 4 Months E11.9 - Type 2 diabetes mellitus without complications, E78.5 - Hyperlipidemia, unspecified, I10 - Essential (primary) hypertension Complete Blood Count Auto Diff 4 Months E11.9 - Type 2 diabetes mellitus without complications, E78.5 - Hyperlipidemia, unspecified, I10 - Essential (primary) hypertension Hemoglobin A1c 4 Months E11.9 - Type 2 diabetes mellitus without complications, E78.5 - Hyperlipidemia, unspecified, I10 - Essential (primary) hypertension Lipid Panel 4 Months E11.9 - Type 2 diabetes mellitus without complications, E78.5 - Hyperlipidemia, unspecified, I10 - Essential (primary) hypertension
--- OUTSIDE RECORDS SUMMARY | 2025-07-06 11:17 | XMS_ITS | Clinical Summary ---
Author Organization [employer] [facility] ity Address [address] [place] [address] Care Team Providers Care Segment Assembler Name Role Phone Nat Cotton MD Primary Care Provider [phone] Medical History Medical History Date Comments Essential [...] age to complete this topic Care Teams Segment Assembler Relationship Specialty Start Date End Date Nat Cotton MD PCP - General 11/03/17
--- OUTSIDE RECORDS SUMMARY | 2025-07-06 11:17 | XMS_ITS | Clinical Summary ---
Author Organization [facility] Address [address] [facility] [address] [place] [address] Phone Care Team Providers Care Automotive Specialty Technician Name Role Phone Unavailable Primary Care Provider Unavailabl e Encounters Date Type Department Care Team Description 06/09/2025 Telephone [facility] [address] [place], [place] [phone] Julienne Urias CNP from Last 3 Months [...] It is not the complete legal health record.[facility]
--- OUTSIDE RECORDS SUMMARY | 2025-07-06 11:17 | XMS_ITS | Encounter Summary ---
Author Organization [facility] Address [address] [facility] [address] [place] [phone] Phone Care Team Providers Care Rn Testing Name Role Phone Unavailable Primary Care Provider Unavailabl e Encounter Details Date Type Department Care Team (Late st Contact Info) Description 06/09/2025 Telephone [facility] [address] [place] [address] Julienne Urias, BINDU [address] [address] [email or web address] Social History Tobacco Use Types Packs/Day Years [...] It is not the complete legal health record.[facility]
== END 2025-07-06 11:01 | disposition home or self-care (01) ==
LOC: HO.HMCC 09:47
PROVIDERS: PCP Internal Medicine; Visit Provider Internal Medicine
DX: R10.9 Unspecified abdominal pain (principal); I10 Essential (primary) hypertension; E78.5 Hyperlipidemia, unspecified; E11.9 Type 2 diabetes mellitus without complications

== ENCOUNTER 2025-08-03 07:05 | Inpatient (IN) | payer OTHER, MEDICARE, SELFPAY ==
[2025-08-03] VITALS (14 sets, daily range): BP systolic 112–137; BP diastolic 63–83; PULSE 70–85; RESP 12–19; TEMP 36.3–36.7; O2SAT 92–98; BMI 32.7; BMI 33.0
--- NOTE | 2025-08-03 | EEG_ITS ---
History: 69 years old woman with hypertension and diabetes who also suffered from IBS and sometime had diarrhea and sometime constipation. Today she was having constipation and said that she had to really strain while passing bowel was. She came out of the restroom and sed in her kitchen when she called her and apparently asked him same question again and again. She had no recollection of what transpired after that. There was no arm or leg weakness or seizure-like symptom. She has been having headaches and was having mild left occipital and neck area pain. Medication: famotidine, triamcinolone acetonide Technical description Photic stimulation: completed Hyperventilation:?omitted Behavioral state: pleasant State of Consciousness: awake Skull defect: none Sedation: none Handedness: right Duration of study:? 23 min 40? sec Tech comments: Patient reported seeing things out of side of eye Description: This is a 16 channel EEG with an EKG lead. Patient is reported awake during the tracing. Background EEG rhythm is about 10 hertz 5-100 microvolt posteriorly and lower amplitude fast anteriorly that was responsive to eye opening closure. Photic stimulation resulted inappropriate driving. Hyperventilation was not performed. Cardiac lead did not reveal any significant abnormality. No definite sharp wave spikes or paroxysmal tendency noted. Impression: No significant abnormality noted on this EEG. ESPERANZAD
--- NOTE | 2025-08-03 | ECG_ITS ---
Test Reason : ams Blood Pressure : */* mmHG Vent. Rate : 77 BPM Atrial Rate : 77 BPM P-R Int : 182 ms QRS Dur : 88 ms QT Int : 402 ms P-R-T Axes : 35 -8 8 degrees QTcB Int : 454 ms Normal sinus rhythm Normal ECG No previous ECGs available Referred By: Generic ED Physician Electronically Signed By: SHARRI YOST
--- NOTE | ~2025-08-03 | MR_ITS ---
CLINICAL HISTORY: transient amnesia MRI Brain Without Contrast: Comparison: CT 08/03/2025 Findings: No restricted diffusion or signs of infarction. No space-occupying mass. There are few scattered periventricular focal areas of white matter degeneration due to microangiopathy. Basal ganglia are unremarkable Mass effect: No shift in midline structures Intracranial bleeding: No intraparenchymal bleeding or abnormal extra axial blood fluid collections Pituitary: Normal in size Visualized sinuses: Clear Orbital structures: Unremarkable Calvarium: There is no abnormal meningeal thickening or nodularity Impression: Chronic involutional volume loss with no acute findings. This document has been electronically signed by: Javier Stark MD on 08/03/2025 17:57:24
--- NOTE | ~2025-08-03 | CT_ITS ---
EXAMINATION: CT HEAD WITHOUT CONTRAST (STROKE PROTOCOL) CLINICAL INFORMATION: Stroke protocol. 69-year-old female. Transient amnesia, last well-known 05:30 hours. COMPARISON: No prior available. TECHNIQUE: Contiguous axial imaging was performed from the skull base to vertex without intravenous administration of contrast. This CT examination was performed using dose optimization techniques as appropriate, variously including the following: *Automated exposure control *Adjustment of mA and/or kV according to patient size (this includes techniques or standardized protocols for targeted exams where dose is matched to indication/reason for exam; i.e. extremities or head) *Use of iterative reconstruction technique FINDINGS: There is no evidence of intracranial hemorrhage or extra-axial fluid collection. There is no mass effect, or edema. No CT evidence of acute territorial infarct. Ventricles, sulci, and cisterns are mildly diffusely prominent in keeping with age appropriate cerebral and cerebellar involutional change. No hydrocephalus. No midline shift. Negative hyperdense MCA sign. Negative insular ribbon sign. Patchy periventricular and deep white matter hypoattenuation is consistent with very mild small vessel ischemic changes. Empty sella. Mild atheromatous calcification of the bilateral carotid siphons. Globes and orbital contents image normally. No extracranial soft tissue abnormalities. The paranasal sinuses, mastoid air cells, and tympanic cavities are normally aerated. No suspicious bony abnormalities. There are no acute fractures evident. CT/CT head for STROKE IMPRESSION: No acute intracranial abnormality. This result was discussed with Dr. Martin of the [facility] 8:35 AM, 08/03/2025. Electronically signed by: Chai Castillo MD 08/03/2025 08:44 AM [facility]
--- OUTSIDE RECORDS SUMMARY | 2025-08-03 07:24 | XMS_ITS | Clinical Summary ---
[facility] Address [address] [place] [address] Care Team Providers Care External Grinder Name Role Phone Nat Cotton MD Primary Care Provider [phone] Medical History Medical History Date Comments Essential [...] Depression Screening 09/03/2024 COVID-19 Vaccine (1 - 2024-2 6 season) 2025 Influenza Vaccine (#1) 2025 RSV [...] age to complete this topic Care Teams External Grinder Relationship Specialty Start Date End Date Nat Cotton MD PCP - General 11/03/17
--- OUTSIDE RECORDS SUMMARY | 2025-08-03 07:24 | XMS_ITS | Encounter Summary ---
Author Organization [facility] Address [address] [facility] [address] [place] [address] Phone Care Team Providers Care Filteration Operator Name Role Phone Unavailable Primary Care Provider Unavailabl e Encounter Details Date Type Department Care Team (Late st Contact Info) Description 06/09/2025 Telephone [facility] [address] [place] [address] Julienne Urias, BINDU [address] [address] Social History Tobacco Use Types Packs/Day Years [...] It is not the complete legal health record.[facility]
--- OUTSIDE RECORDS SUMMARY | 2025-08-03 07:24 | XMS_ITS | Clinical Summary ---
Author Organization [facility] Address [address] [facility] [address] [place] [address] Phone Care Team Providers Care Machine Packer Name Role Phone Unavailable Primary Care Provider Unavailabl e Encounters Date Type Department Care Team Description 06/09/2025 Telephone [facility] [address] [place], [place] [phone] Julienne Urias CNP from Last 3 Months [...] It is not the complete legal health record.[facility]
--- OUTSIDE RECORDS SUMMARY | 2025-08-03 07:24 | XMS_ITS | Data Portability ---
Author Organization [facility], [facility] Address [address] [place] [address] Assessment No assessment recorded. Plan of Treatment Reminders Order Date Submit Date Provider Last Modified By Organization Details Last Modified Time Details Appointments None recorded. Lab rapid strep group A, throat 2023 024 [email or web address] [facility] [address], [address] [place], [address], 4 09:27:11 rapid flu (A+B) 2023 024 [email or web address] [address] [address], [address] [place], [address], 4 09:27:10 streptococc us group A, culture, throat 2023 024 [facility], [address] [place] [address], [place], [address], 4 16:06:48 Referral None recorded. Procedures None recorded. Surgeries None recorded. Imaging XR, chest, 2 view 2023 024 [facility], [address] [place] [address], [place], [address], 4 09:27:05 Medication Orders prednisone 20 mg tablet 2023 024 [facility], [address] [place] [address], [place], [place], [id number], 4 15:08:29 fexofenadin e 180 mg tablet 2023 024 [id number], [address] [place], [place], [id number], 4 15:08:29 albuterol sulfate 2.5 mg/3 mL (0.083 %) solution for nebulizatio n 2023 024 [email or web address] Not available 4 09:27:05 ipratropium bromide 0.02 % solution for inhalation 2023 024 [email or web address] Not available 4 09:27:06 albuterol sulfate HFA 90 mcg/actuati on aerosol inhaler [address] [facility]83265, [address] [place], [place], [id number], 4 09:27:05 prednisone 20 mg tablet [address] [facility]92240, [address] [place], [place], [id number], 4 09:27:05 benzonatate 200 mg capsule [address] [facility]23540, [address] [place], [place], [id number], 4 09:27:05 Allergy Relief (fluticason e) 50 mcg/actuati on nasal spray,suspe nsion [address] [facility]93106, [address] [place], [place], [id number], 4 09:27:05 Patient TargetsNo targets recorded. Patient Instructions Encounter Date Encounter Id Patient Instructions Last Modified By Organization Details Last Modified Time 02/01/2024 [id number] specimen collection & handling* Not available 02/01/2024 [...] further evaluation. Not available 02/01/2024 09:24:44 02/24/2024 [id number] type 2 diabetes: care instructions Not available [...] ([facility]) [address] [facility], [place], [address], 02/04/2024 16:06:48 02/01/2002/01/2024 peak flow* Pre (L/min) 110 Not Available [address] [place], [address], 02/01/2024 08:48:53 02/01/2002/01/2024 peak flow* Post (L/min) 130 Not Available [address] [place], [address], 02/01/2024 08:48:53 02/01/2002/01/2024 peak flow* Pulse 73 Not Available [facility] [address] [place], [address], 02/01/2024 08:48:53 02/01/20 24 02/01/2024 peak flow* Oxygen Saturation 99% Not Available [facility] [address] [place], [address], 02/01/2024 08:48:53 02/01/20 24 02/01/2024 speci men colle ction & handl ing* Completed? Succes sfully Not Available [id number] [place] [address] [address] [place], [address], 02/01/2024 08:48:07 02/01/20 24 02/01/2024 rapid flu (A+B) Unknown Analyte negati ve Not Available [id number] [place] [address] [place] [address], [address], 02/01/2024 08:44:02 02/01/20 24 02/01/2024 rapid flu (A+B) Unknown Analyte negati ve Not Available [id number] [place] [address] [place] [address], [phone], 02/01/2024 08:44:02 02/01/20 24 02/01/2024 rapid flu (A+B) Unknown Analyte yes Not Available [address] [place] [address] [place] [address], [address], 02/01/2024 08:44:02 02/01/20 24 02/01/2024 rapid strep group A, throa t Unknown Analyte negati ve Not Available [id number] [place] [address] [address] [place], [address], 02/01/2024 08:43:26 02/01/20 24 02/01/2024 rapid strep group A, throa t Unknown Analyte yes Not Available [address] [place] [address] [address] [place], [address], 02/01/2024 08:43:26 02/01/20 24 02/01/2024 XR, chest , 2 view No observ ation record ed. [email or web address] [facility] [address] [place], [address], 02/01/2024 09:30:12 Result Notes None recorded. Problems Name Problem SNOMED Code Status Onset Date Resolution Date Notes Provider Name and Address Organization Details Recorded Time Diabetes mellitus 21138956 Active Cordelia Young null, [place] - [facility] 4 08:42:02 Arthritis 4198572 Active Cordelia Young null, PA - [facility] 4 08:42:17 Acute bronchitis 41860551 Active 2023 Aamir Jurado, HUMANITIES COORDINATOR [address] , [place], [address], [place] - [facility] 4 08:47:58 Hyperglycem ia due to type 2 diabetes mellitus 1125266014968 09 Active 2023 Aamir Jurado, HUMANITIES COORDINATOR [address] , [place], [address], [place] - [facility] 4 09:19:11 Type 2 diabetes mellitus without complicatio n 874612334 Active 2023 Aamir Jurado, HUMANITIES COORDINATOR [address] , [place], [address], [place] - [facility] 4 15:10:47 Problem Notes None recorded. Medical Equipment None Reported. Allergies Allergen ID Allergen Name Allergen Category Reaction Reaction Severity Criticality Documentation Date Start Date Code Code System Note Provider Name and Address Organization Details Recorded Time 787313 lisinopri l medicatio n Not available Not available Not available 02/01/2024 24502 RxNorm Cordelia owens, PA - [facility] [...] mass index (BMI) Body weight Oxygen saturation Heart rate Respiratory rate Body temperature Systolic And Diastolic Provider Name and Address Organization Details Last Updated DateTime 4 152.4 cm 31.2 kg/m2 02735.7 8 g 99 % 73 /min 16 /min 98 [degF] 114/73 mm[Hg] Cordelia Young PA - [facility] 4 08:37:48 Date Recorded Body height Body mass index (BMI) Body weight Respiratory rate Pain severity - 0-10 verbal numeric rating [Score] - Reported Oxygen saturation Heart rate Body temperature Systolic And Diastolic Provider Name and Address Organization Details Last Updated DateTime 4 152.4 cm 31.2 kg/m2 75054.7 8 g 18 /min 5 96 % 81 /min 98 [degF] 120/79 mm[Hg] Duyen Marin PA - [facility] 4 15:00:28 Social History Question Answer Notes LastModified by Organizat ion Details LastModified Time Tobacco Smoking Status Never Smoker KELI Davis [facility] 02/01/2024 08:43:12 What Is The Highest Grade Or Level Of School You Have Completed Or The Highest Degree You Have Received? KY75867-1 Information not available 02/24/2024 Have You Had A Flu Shot This Season? No Information not available 02/24/2024 If No, Would You Like A Flu Shot Today? No [email or web address] Information not available 02/24/2024 Have You Had Direct Contact, Or Contact During Intimacy, With Monkeypox Rash, Scabs, Or Body Fluids From A Person With Monkeypox? No [email or web address] Information not available 02/24/2024 What Was The Date Of Your Most Recent Tobacco Screening? 02/01/2024 Information not available 02/01/2024 Have You Recently Traveled Abroad? No [email or web address] Information not available 02/24/2024 Are You Currently In School? No [email or web address] Information not available 02/24/2024 Sex: Unknown Functional [...] split virus, quadrivalent, preservative 8 completed Cordelia Young null, PA - [facility] 02/01/2024 08:38:16 Influenza, split virus, quadrivalent, preservative 1 completed Cordelia owens, PA - [facility] 02/01/2024 08:38:16 COVID-19, [...] ICD10 Code Diagnosis IMO Codes Diagnosis Note [id number] [address] [address] [address] [place] [address] 11/02/2019 08:23:42 11/02/2019 09:30:55 [id number] Aamir Jurado, HUMANITIES COORDINATOR [address] [facility] [address] [place] [address] 02/01/2024 08:20:04 02/01/2024 09:26:30 Acute bronchitis 18269082 J20.9 Acute bronchitis is a common clinical [...] acute bronchitis is a national and internatio [facility] health care priority. In most [...] yanci due to type 2 diabetes mellitus 9352905341 53509 E11.65 Health Education and GuidanceDi abetes Type [...] triglyceri lizeth at least once a [place] [id number] [place] [address] [facility] [address] [place] [address] 02/24/2024 14:01:58 02/24/2024 15:12:46 Acute bronchitis 49128318 J20.9 Acute bronchitis is a common clinical [...] acute bronchitis is a national and internatio [facility] health care priority. In most [...] Type 2 frank betes mellitus without complication 231635966 E11.9 Health Concerns Section Related Observation LastModified by Organization Detai ls LastModified Time None Recorded Concern Status LastModified by Organization Details LastModified Time None Recorded Advance Directives Directive None Recorded Payers Insurance Date Sequence Insurance Name Policy Number Policy Daniels Covered Member ID Daniels Member ID Guarantor Name 02/24/2024 2 MEDICARE B-[place]: [facility] [employer] Malia Joy [id number] Malia Joy 02/24/2024 1 [facility] [id number] Malia Barakat [id number] Malia Joy 02/01/2024 1 [facility] [id number] Malia Barakat [id number] Malia Joy Notes Date Note Type Note [...] patient reportsat night. Aamir Jurado NP [address] [facility] [place], [address], [place] - [facility] 02/01/2024 09:27:27 02/24/20 [...] Jurado NP [address] [place], [address], [place] - [facility] 02/24/2024 15:11:13 OBGyn Episode No OBEpisode recorded.
--- NOTE | 2025-08-03 07:59 | ED.GENADULT ---
HPI - General Adult General Chief complaint: General Medical Stated complaint: Memory loss, thinks she had a stroke Time Seen by Provider: 08/03/25 07:58 Source: patient and family ( and son) Mode of arrival: ambulatory Limitations: no limitations History of Present Illness ED Provider: Dr. Sheldon Martin HPI narrative: 69-year-old female with a history of dysphagia, osteoarthritis, diabetes mellitus, hyperlipidemia, hypertension who presents emergency department for evaluation of transient amnesia. According to the patient's , he woke up this morning and ate breakfast and spoke to his at 05:30 hours. He then went to work in his called him on the phone at 05:50 hours. According to the , the patient kept asking the same questions while they were on the phone. She kept asking , ?What are you doing? What time is it now??. The then hung up and called his son in his son went to check in on his mother. The called her back time minutes later and the patient had no memory of the phone call. According to the she seemed back to normal. This has the 1st episode of the patient having transient amnesia. The last thing that the patient remembers is that she was in the bathroom straining to move her bowels. She then remembers taking your 's phone call. She denied being ill in any way prior to the onset of the symptoms. She states however over the last month she has had intermittent left-sided neck pain associated with the headaches. She denied fever, chills, chest pain, shortness of breath, dyspnea on exertion. She states she gets occasional nausea. She denied dysuria urgency but does have urinary frequency which she attributes to her diabetes. She denied dark stools or tarry stools. Related Data Home Medications ?Medication ?Instructions ?Recorded ?Confirmed albuterol sulfate 90 mcg/actuation 2 puff inhalation Q6H PRN 02/27/24 07/06/25 aerosol inhaler fexofenadine 180 mg tablet 180 mg PO DAILY 02/27/24 07/06/25 omeprazole 20 mg capsule,delayed 20 mg PO DAILY 07/06/25 07/06/25 release Previous Rx's ?Medication ?Instructions ?Recorded triamcinolone acetonide 0.025 % 1 appl topical DAILY #80 grams 03/18/24 topical cream amlodipine 5 mg tablet 5 mg PO BID #180 tabs 09/23/24 hydrochlorothiazide 12.5 mg tablet 12.5 mg PO DAILY #90 tabs 09/23/24 cholecalciferol (vitamin D3) 50 50 mcg PO DAILY #90 caps 12/26/24 mcg (2,000 unit) capsule atorvastatin 40 mg tablet 40 mg PO DAILY #90 tabs 06/30/25 glimepiride 2 mg tablet 2 mg PO DAILY #90 tabs 06/30/25 irbesartan 300 mg tablet 300 mg PO DAILY #90 tabs 06/30/25 metformin 1,000 mg tablet 1,000 mg PO BID #180 tabs 06/30/25 Allergies Allergy/AdvReac Type Severity Reaction Status Date / Time lisinopril Allergy Unknown cough Verified 08/03/25 07:12 tirzepatide (From Mounjaro) AdvReac Intermediate Diarrhea Verified 08/03/25 07:12 dulaglutide (From Trulicity) AdvReac chills and Verified 08/03/25 07:12 sweats Review of Systems Review of Systems: Yes all other systems are reviewed and are negative [facility] Past Medical History [facility] Narrative: Social history: She denies tobacco, alcohol and drug use. She lives with her . Medical History Rash Dysphagia [place] of foot Annual physical exam Normal Pap smear Mammogram normal History of mammogram Osteoarthritis Type 2 diabetes mellitus Hyperlipidemia Hypertension Surgical History H/O colonoscopy No pertinent past surgical history Family History Family History Father Lung cancer Mother No problems noted. Son No problems noted. Son No problems noted. Paternal Uncle Hx of colonoscopy Maternal Grandfather Stomach cancer Social History Social History Housing: House Unable to assess alcohol history related to: Unknown Alcohol intake: never Patient Tobacco Use Status: Never used Tobacco e-Cigarette/Vaping Use: Never Used Use of substances other than those prescribed or required for medical reasons: Unknown Advance Directives: No Advance Directives Information Provided: Yes Do you have a plan to hurt others: No Plan service: No Current occupational status: employed Cognitive needs: No (wears glasses) Hearing needs: No Vision needs: Yes (wearing glasses ) Physical Exam ED Vital Signs: Vital Signs - 24 hr 08/03/25 07:07 Temperature 98 F Pulse Rate 79 Respiratory Rate 18 Blood Pressure 112/76 Pulse Oximetry 98 Oxygen Delivery Method Room Air BMI result Body Mass Index 32.7 Exam: General: Awake, alert in no distress Head: Normocephalic, atraumatic EENT: PERRL, sclera and conjunctiva are normal, mouth with no erythema or exudates Neck: Supple, no adenopathy Lung: breath sounds symmetric, no wheezing, no rales and no rhonchi Chest: symmetric movement, nontender Heart: regular rate and rhythm, normal S1, S2 no murmurs or rubs Abdomen: soft, non-tender, nondistended, normal bowel sounds Back: no vertebral tenderness, no CVAT Extremities: no deformities, moves all extremities symmetrically, no edema Neuro: General: ?Awake, alert, oriented, normal speech Cranial nerves: ?Cranial nerves 2-12 ?intact Strength: ?Moves all extremities symmetrically, strength 5/5 Cerebellar: ?Good [id number]-to-finger, good rapid finger movement, normal heel to stern Psych: Pleasant, cooperative NIH Stroke Scale Internal: Initial- Upon Arrival Level of Consciousness: Alert Level of Consciousness Questions: Answers both questions correctly Level of Consciousness Commands: Performs both tasks correctly Best Gaze: Normal Visual: No visual loss Facial Palsy: Normal Motor Arm (Right): No drift Motor Arm (Left): No drift Motor Leg (Right): No drift Motor Leg (Left): No drift Limb Ataxia: Absent Sensory: Normal Best Language: No aphasia Dysarthia: Normal Extinction and Inattention: No abnormality Score: 0 Medical Decision Making Medical Decision Making MDM Narrative: 69-year-old female with a history of dysphagia, osteoarthritis, diabetes mellitus, hyperlipidemia, hypertension who presents emergency department for evaluation of transient amnesia with the patient repeating the same questions over and over, amnesia last proximally 10 minutes, last well-known time was 05:30 hours. Patient remembers trying to move her bowels and straining and then remembers taking her 's phone call. At the time of my evaluation of the patient's symptoms completely resolved. Patient's neurologic exam was nonfocal. NIH stroke scale was 0. Differential diagnosis: ?Includes but is not limited to transient global amnesia, TIA, stroke, alcohol intoxication, anemia, electrolyte abnormalities Course: 08:21 The patient was made a stroke protocol. I ordered a stroke workup and a CT scan without IV contrast. Given her normal exam and an NIH stroke scale of 0, I do not think that she needs a CT angiogram head/neck and she is a thrombolytics/ TNK candidate. I did discuss the patient's presentation with the covering neurologist, Dr. Medina. His recommendation was to admit the patient to the hospital and do a TIA/stroke workup on the patient. 09:42 My independent interpretation patient's laboratory evaluation is as follows: CBC was normal. CMP revealed an elevated glucose of 170 otherwise unremarkable. High sensitive troponin I was below detectable limits. COVID-19 was negative. Ethanol was below detectable limits. Urinalysis was negative. PT INR was normal. CT head revealed no acute abnormalities. Radiologist noted ?patchy periventricular and deep white matter hypoattenuation ?which is consistent with mild small vessel ischemic changes. I ordered aspirin 162 mg orally. 10:08 I will discuss admission over tiger text with the covering hospitalist, Mindi Carter and the patient will be admitted to the hospitalist service for further treatment. Differential Diagnosis Differential Diagnoses: The differential diagnosis associated with the presentation includes (See above) Admission/Observation Consideration of admission/observation: Escalation of care including admission/observation considered (Yes) Consult Healthcare Provider Management of the patient was discussed with: Hospitalist and Pipe Stem Sawyer (Neurologist, Dr. Medina) Lab Data MDM Lab Attestation statement: I reviewed the patient's lab results. 08/03/25 08:21 12 08:21 Labs: Lab Results 08/03/25 08/03/25 08/03/25 Range/Units 08:20 08:21 08:52 WBC 8.9 (4.8-10.8) X10*3/uL RBC 5.06 (4.20-5.50) X10*6/uL Hgb 13.5 (12.0-16.0) g/dl Hct 41.0 (37.0-47.0) % MCV 81.0 (80.0-98.0) fL MCH 26.7 L (27.0-33.0) pg MCHC 32.9 (31.0-35.0) g/dl RDW 14.5 (11.0-16.0) % Plt Count 267 (160-400) X10*3/uL MPV 10.3 (9.4-12.3) fL Immature Gran % (Auto) 0.6 H (0.0-0.4) % Neut % (Auto) 68.4 (45-73) % Lymph % (Auto) 20.6 (20-40) % [place] % (Auto) 7.2 (2-11) % Eos % (Auto) 2.4 (0-4) % Baso % (Auto) 0.8 (0-2) % Lymph # (Auto) 1.8 (1.2-4.9) X10*3/uL [place] # (Auto) 0.6 (0.1-1.2) X10*3/uL Eos # (Auto) 0.2 (0.0-0.4) X10*3/uL Baso # (Auto) 0.1 (0.0-0.2) X10*3/uL Abs Immat Gran (auto) 0.05 H (0.00-0.03) X10*3/uL Absolute Neuts (auto) 6.1 (2.0-8.3) x10*3/uL Absolute Nucleated RBC 0.000 (0.0-0.012) X10*3/uL Nucleated RBC % (auto) 0.0 (0.0-0.2) /100WBC Hold Purple Top SEE NOTE PT 12.5 (11.2-13.5) SEC Whole Blood PT (11.1-13.5) sec INR 1.0 (0.9-1.1) Whole Blood INR (0.9-1.1) APTT 35.4 H (26.7-34.1) SEC Sodium 139 (135-145) mmol/L Potassium 4.9 (3.3-5.1) mmol/L Chloride 104 (96-108) mmol/L Carbon Dioxide 26 (22-29) mmol/L Anion Gap 14 (12-20) BUN 17 H (9-16) mg/dL Creatinine 0.67 (0.5-1.4) mg/dL Estim Creat Clear Calc 74.2 Estimated GFR > 60 POC Glucose 170 H (60-115) mg/dL Random Glucose 210 H (60-115) mg/dL Calcium 10.3 H D (8.4-10.2) mg/dL Troponin I High Sens < 2.7 (<3.5-17.0) ng/L Triglycerides 94 (<150) mg/dL Cholesterol 159 (<200) mg/dL LDL Cholesterol, Calc 85 (<100) mg/dL HDL Cholesterol 56 (>40) mg/dL Urine Color Yellow Urine Appearance Clear Urine pH 5.5 (5.0-9.0) Ur Specific [place] <= 1.005 (1.005-1.025) Urine Protein Negative (Neg-Trace) mg/dL Urine Glucose (UA) Negative (Negative) mg/dL Urine Ketones Negative (Negative) mg/dL Urine Blood Negative (Negative) Urine Nitrite Negative (Negative) Ur Leukocyte Esterase Negative (Negative) Ethyl Alcohol < 10 mg/dL COVID-19 (ELEONORA) Negative (Negative) COVID-19 Clin Com See Note Influenza Type A (JORGE) Invalid (Negative) Influenza Type B (JORGE) Invalid (Negative) Influenza A & B Note See Note 08/03/25 Range/Units 09:29 WBC (4.8-10.8) X10*3/uL RBC (4.20-5.50) X10*6/uL Hgb (12.0-16.0) g/dl Hct (37.0-47.0) % MCV (80.0-98.0) fL MCH (27.0-33.0) pg MCHC (31.0-35.0) g/dl RDW (11.0-16.0) % Plt Count (160-400) X10*3/uL MPV (9.4-12.3) fL Immature Gran % (Auto) (0.0-0.4) % Neut % (Auto) (45-73) % Lymph % (Auto) (20-40) % [place] % (Auto) (2-11) % Eos % (Auto) (0-4) % Baso % (Auto) (0-2) % Lymph # (Auto) (1.2-4.9) X10*3/uL [place] # (Auto) (0.1-1.2) X10*3/uL Eos # (Auto) (0.0-0.4) X10*3/uL Baso # (Auto) (0.0-0.2) X10*3/uL Abs Immat Gran (auto) (0.00-0.03) X10*3/uL Absolute Neuts (auto) (2.0-8.3) x10*3/uL Absolute Nucleated RBC (0.0-0.012) X10*3/uL Nucleated RBC % (auto) (0.0-0.2) /100WBC Hold Purple Top PT (11.2-13.5) SEC Whole Blood PT 12.0 (11.1-13.5) sec INR (0.9-1.1) Whole Blood INR 1.0 (0.9-1.1) APTT (26.7-34.1) SEC Sodium (135-145) mmol/L Potassium (3.3-5.1) mmol/L Chloride (96-108) mmol/L Carbon Dioxide (22-29) mmol/L Anion Gap (12-20) BUN (9-16) mg/dL Creatinine (0.5-1.4) mg/dL Estim Creat Clear Calc Estimated GFR POC Glucose (60-115) mg/dL Random Glucose (60-115) mg/dL Calcium (8.4-10.2) mg/dL Troponin I High Sens (<3.5-17.0) ng/L Triglycerides (<150) mg/dL Cholesterol (<200) mg/dL LDL Cholesterol, Calc (<100) mg/dL HDL Cholesterol (>40) mg/dL Urine Color Urine Appearance Urine pH (5.0-9.0) Ur Specific [place] (1.005-1.025) Urine Protein (Neg-Trace) mg/dL Urine Glucose (UA) (Negative) mg/dL Urine Ketones (Negative) mg/dL Urine Blood (Negative) Urine Nitrite (Negative) Ur Leukocyte Esterase (Negative) Ethyl Alcohol mg/dL COVID-19 (ELEONORA) (Negative) COVID-19 Clin Com Influenza Type A (JORGE) (Negative) Influenza Type B (JORGE) (Negative) Influenza A & B Note Independent Interpretation I performed an independent interpretation of an: EKG Interpretation: My independent interpretation of the patient's 12 EKG is as follows: Normal sinus rhythm with a rate of 77, normal ME interval, QRS duration and QTC interval, no ST segment elevation, no ST segment depression, inverted T-waves in V1, V2 and V3, no PACs, no PVCs. No old EKG for comparison. Radiology Impression Discussion of test interpretation with radiology: I have reviewed the radiologist's reading. Radiologist Impression: CT HEAD WITHOUT CONTRAST (STROKE PROTOCOL) CLINICAL INFORMATION: FINDINGS: There is no evidence of intracranial hemorrhage or extra-axial fluid collection. There is no mass effect, or edema. No CT evidence of acute territorial infarct. Ventricles, sulci, and cisterns are mildly diffusely prominent in keeping with age appropriate cerebral and cerebellar involutional change. No hydrocephalus. No midline shift. Negative hyperdense MCA sign. Negative insular ribbon sign. Patchy periventricular and deep white matter hypoattenuation is consistent with very mild small vessel ischemic changes. Empty sella. Mild atheromatous calcification of the bilateral carotid siphons. Globes and orbital contents image normally. No extracranial soft tissue abnormalities. The paranasal sinuses, mastoid air cells, and tympanic cavities are normally aerated. No suspicious bony abnormalities. There are no acute fractures evident. IMPRESSION: No acute intracranial abnormality. This result was discussed with Dr. Martin of the [facility] 8:35 AM, 08/03/2025. Independent Historian Clinical information obtained from an independent historian. History obtained from or confirmed by: Spouse and Other (Son) External Record Review External record reviewed: Office record Chronic Conditions Patient?s care impacted by: Diabetes, Hypertension and Other (Hyperlipidemia) Critical Care Time Critical Care Time Critical Care Time: Yes Total Critical Care Time: 45 Attestation: Critical Care: The patient was critically ill with a high probability of imminent or life threatening deterioration. I spent greater than 30 minutes of discontinuous time evaluating the patient,delivering critical care at the bedside, discussing and evaluating pertinent data with consultants. Critical care time does not include time spent performing separately billable procedures or teaching. Total time spent performing critical care was 45 minutes. Discharge Plan Discharge Patient Disposition: Admitted As Inpatient Print Language: English
[2025-08-03 08:27] LABS: MANUAL DIFF FLAG NO
[2025-08-03 08:39] LABS: INTERNATIONAL NORM RATIO 1.0 (0.9-1.1); Prothrombin Time 12.5 SEC (11.2-13.5)
[2025-08-03 08:41] LABS: Appearance Urine Clear; Glucose Urine UA Negative (Negative); PH 5.5 (5.0-9.0); Specific Gravity - Urine <= 1.005 (1.005-1.025)
[2025-08-03 08:42] LABS: Partial Thromboplastin Time 35.4 SEC (26.7-34.1)
[2025-08-03 08:43] LABS: Hematocrit 41.0 % (37.0-47.0); Hemoglobin 13.5 g/dl (12.0-16.0); Imm Gran Abs Auto 0.05 X10*3/uL (0.00-0.03); Imm Gran Pct Auto 0.6 % (0.0-0.4); Lymphocytes Absolute Auto 1.8 X10*3/uL (1.2-4.9); Mean Corpuscular HGB Conc 32.9 g/dl (31.0-35.0); Mean Corpuscular Hemoglobin 26.7 pg (27.0-33.0); Mean Corpuscular Volume 81.0 fL (80.0-98.0); NRBC Abs Auto 0.000 X10*3/uL (0.0-0.012); NRBC Pct Auto 0.0 /100WBC (0.0-0.2); Platelet Count 267 X10*3/uL (160-400); Red Blood Count 5.06 X10*6/uL (4.20-5.50); White Blood Count 8.9 X10*3/uL (4.8-10.8)
[2025-08-03 08:52] LABS: COVID-19 Test Negative (Negative); IDNOW Serial# 08D9AD1C
[2025-08-03 08:55] LABS: Glucose, Whole Blood 170 mg/dL (60-115)
[2025-08-03 08:58] LABS: Troponin-I High Sensitivity < 2.7 ng/L (<3.5-17.0)
[2025-08-03 08:59] LABS: Anion Gap 14 (12-20); Blood Urea Nitrogen 17 mg/dL (9-16); Calcium 10.3 mg/dL (8.4-10.2); Carbon Dioxide 26 mmol/L (22-29); Chloride 104 mmol/L (96-108); Cholesterol 159 mg/dL (<200); Creatinine Clr Calc Pharmacy 74.2; Estimated Glomerular Filt Rate > 60; HDL Cholesterol 56 mg/dL (>40); Potassium 4.9 mmol/L (3.3-5.1); Sodium 139 mmol/L (135-145); Triglycerides 94 mg/dL (<150)
--- NOTE | 2025-08-03 08:59 | PC.NURSE ---
Patient states she had a brief episode of AMS prior to arrival, patient now A&Ox4. Ambulated independently to the bathroom without difficulty. Patient resting in room. Call monaco within reach. Plan for admission.
[2025-08-03 09:00] LABS: IDNOW Serial# 55D5AD1C; Influenza B2 Invalid (Negative)
[2025-08-03 09:26] LABS: Stroke Lab Use COMPLETE
--- NOTE | 2025-08-03 09:30 | MHC.EDTECH ---
Delay on PTINR due to machine not being QC having to QC the machine twice because the first time would not go trough. Nurse is aware.
[2025-08-03 09:35] LABS: Prothrombin Time Whole Bld POC 12.0 sec (11.1-13.5); ~PT, ~INR - Anti Coag Clinic 1.0 (0.9-1.1)
[2025-08-03 10:36] LABS: Cannabinoid Screen Urine Not Detected (Not Detect)
[2025-08-03 11:10] LABS: IDNOW Serial# 58CA691E; Influenza B2 Negative (Negative)
--- NOTE | 2025-08-03 11:19 | PHA.MEDREC ---
Pharmacy Consult ? Medication Reconciliation Pharmacy has completed the medication reconciliation. Spoke to patient to confirm medication list. Per patient, she doesn't take omeprazole anymore (doesn't work) and she takes famotidine as needed. She hasn't started using the eye drops (ofloxacin and ketorolac) because they're for an upcoming cataract surgery that is now postponed. Last dose of medications was this morning 08/03/25.
--- NOTE | 2025-08-03 13:14 | P.HPHOSP_ITS ---
History of Present Illness Date of Service: 08/03/25 Chief Complaint: amnesia 69-year-old female with a history of dysphagia, osteoarthritis, diabetes mellitus, hyperlipidemia, hypertension who presented to the emergency department for evaluation of transient amnesia. According to the patient's , he spoke to his at 0530 while he was at work. The patient called him 2 minutes later and the patient kept asking the same questions over and over again. She kept asking the time and what was he doing. The had called her back minutes later and she had no memory of the phone call and what she was asking. They both reported that this has never happened before and during the interview the patient was AOx3. She denied recent illness, recent travel, new medications. Head CT showed no acute abnormality. She was given a full dose aspirin and she will be placed on observation. Review of Systems 2 Review of Systems: Denies any recent fever chills or decrease in appetite respiratory denies any shortness of breath or cough cardiovascular denied chest pain gastrointestinal denies any dysphagia abdominal pain nausea vomiting or diarrhea genitourinary denies any dysuria frequency or hematuria musculoskeletal denies any joint pain or swelling neuropsych denies any weakness or seizures all other systems reviewed are negative [facility] Medical History Rash Dysphagia [place] of foot Annual physical exam Normal Pap smear Mammogram normal History of mammogram Osteoarthritis Type 2 diabetes mellitus Hyperlipidemia Hypertension Family History Father Lung cancer Mother No problems noted. Son No problems noted. Son No problems noted. Paternal Uncle Hx of colonoscopy Maternal Grandfather Stomach cancer Surgical History H/O colonoscopy No pertinent past surgical history Social History Housing: House Unable to assess alcohol history related to: Unknown Alcohol intake: never Patient Tobacco Use Status: Never used Tobacco e-Cigarette/Vaping Use: Never Used Use of substances other than those prescribed or required for medical reasons: Unknown Advance Directives: No Advance Directives Information Provided: Yes Do you have a plan to hurt others: No Plan service: No Current occupational status: employed Cognitive needs: No (wears glasses) Hearing needs: No Vision needs: Yes (wearing glasses ) Meds Allergies Allergy/AdvReac Type Severity Reaction Status Date / Time lisinopril Allergy Unknown cough Verified 08/03/25 07:12 tirzepatide (From Mounjaro) AdvReac Intermediate Diarrhea Verified 08/03/25 07:12 dulaglutide (From [facility]) AdvReac chills and Verified 08/03/25 07:12 sweats Active Medications: Current Medications Acetaminophen (Acetaminophen 325 Mg Tablet) 650 mg PO Q6H PRN PRN Reason: Pain, Mild 1-3,fever,headache Calcium Carbonate (Calcium Carbonate 750 Mg Tab.Chew) 750 mg PO Q4H PRN PRN Reason: Heartburn Dextrose (Dextrose 50 % 25 Gm/50 Ml Syringe) 25 gm IVPUSH Q15M PRN; Protocol PRN Reason: per Hypoglycemia Standing Ord. Glucose (Glucose Gel 15 Gm Gel..Gram.) 15 gm PO Q15M PRN; Protocol PRN Reason: per Hypoglycemia Standing Ord. Heparin Sodium (Porcine) (Heparin Sodium,Porcine 5,000 Unit/Ml Vial) 5,000 unit SUBCUT Q12H [facility] Insulin Human Lispro (Insulin Lispro 100 Unit/Ml 3 Ml Vial) 0 unit SUBCUT QIDACHS [facility]; Protocol Magnesium Hydroxide (Milk Of Magnesia 30 Ml Oral.Susp) 30 ml PO DAILY PRN PRN Reason: Constipation Melatonin (Melatonin 3 Mg Tablet) 6 mg PO BEDTIME PRN PRN Reason: Insomnia Ondansetron HCl (Ondansetron Hcl 4 Mg/2 Ml Vial) 4 mg IVPUSH Q8H PRN PRN Reason: Nausea and Vomiting Sodium Chloride (0.9 % Sodium Chloride Flush 3 Ml Syringe) 3 [facility] Home Medications ?Medication ?Instructions ?Recorded ?Confirmed ?Last Taken ?Type famotidine 40 mg tablet 40 mg PO DAILY PRN Acid Refl ux 08/03/25 08/03/25 Unknown History triamcinolone acetonide 0.025 % 1 appl topical DAILY P RN Itching 08/03/25 08/03/25 Unknown History topical cream Physical Exam 2 Vital Signs and Narrative: Vital Signs: Last Vital Signs Temp 98 F 08/03/25 07:07 Pulse 74 08/03/25 09:45 Resp 14 08/03/25 09:45 BP 113/71 08/03/25 09:45 Pulse Ox 98 08/03/25 07:07 O2 Del Method Room Air 08/03/25 07:07 BMI result Body Mass Index 32.7 Appearing in no acute distress head is normocephalic atraumatic eyes pupils are PERRLA sclera is anicteric mouth throat mucous membranes are intact and moist neck is supple no lymphadenopathy, no JVD noted lung sounds are clear to auscultation heart regular rate rhythm, clear S1, S2 positive bowel sounds, abdomen is soft, nontender neuro patient is alert x3, no focal deficits Results Labs 08/03/25 08:21 08/03/25 08:21 Labs: Laboratory Results - last 24 hr 08/03/25 08/03/25 08/03/25 08:20 08:21 08:52 MCV 81.0 MCH 26.7 L MCHC 32.9 RDW 14.5 Plt Count 267 MPV 10.3 Immature Gran % (Auto) 0.6 H Neut % (Auto) 68.4 Lymph % (Auto) 20.6 [place] % (Auto) 7.2 Eos % (Auto) 2.4 Baso % (Auto) 0.8 Lymph # (Auto) 1.8 [facility] # (Auto) 0.6 Eos # (Auto) 0.2 Baso # (Auto) 0.1 Abs Immat Gran (auto) 0.05 H Absolute Neuts (auto) 6.1 Absolute Nucleated RBC 0.000 Nucleated RBC % (auto) 0.0 Hold Purple Top SEE NOTE PT 12.5 Whole Blood PT INR 1.0 Whole Blood INR APTT 35.4 H Anion Gap 14 Estim Creat Clear Calc 74.2 Estimated GFR > 60 POC Glucose 170 H Random Glucose 210 H Calcium 10.3 H D Troponin I High Sens < 2.7 Triglycerides 94 Cholesterol 159 LDL Cholesterol, Calc 85 HDL Cholesterol 56 Urine Color Yellow Urine Appearance Clear Urine pH 5.5 Ur Specific Drain <= 1.005 Urine Protein Negative Urine Glucose (UA) Negative Urine Ketones Negative Urine Blood Negative Urine Nitrite Negative Ur Leukocyte Esterase Negative Urine Opiates Screen Ur Buprenorphine Scrn Ur Oxycodone Screen Urine Methadone Screen Urine Fentanyl Screen Ur Barbiturates Screen Ur Phencyclidine Scrn Ur Amphetamines Screen U Benzodiazepines Scrn Urine Cocaine Screen U Marijuana (THC) Screen Ethyl Alcohol < 10 COVID-19 (ELEONORA) Negative COVID-19 Clin Com See Note Influenza Type A (JORGE) Invalid Influenza Type B (JORGE) Invalid Influenza A & B Note See Note 08/03/25 08/03/25 09:29 10:19 MCV MCH MCHC RDW Plt Count MPV Immature Gran % (Auto) Neut % (Auto) Lymph % (Auto) [facility] % (Auto) Eos % (Auto) Baso % (Auto) Lymph # (Auto) [facility] # (Auto) Eos # (Auto) Baso # (Auto) Abs Immat Gran (auto) Absolute Neuts (auto) Absolute Nucleated RBC Nucleated RBC % (auto) Hold Purple Top PT Whole Blood PT 12.0 INR Whole Blood INR 1.0 APTT Anion Gap Estim Creat Clear Calc Estimated GFR POC Glucose Random Glucose Calcium Troponin I High Sens Triglycerides Cholesterol LDL Cholesterol, Calc HDL Cholesterol Urine Color Urine Appearance Urine pH Ur Specific Drain Urine Protein Urine Glucose (UA) Urine Ketones Urine Blood Urine Nitrite Ur Leukocyte Esterase Urine Opiates Screen Not Detected Ur Buprenorphine Scrn Not Detected Ur Oxycodone Screen Not Detected Urine Methadone Screen Not Detected Urine Fentanyl Screen Not Detected Ur Barbiturates Screen Not Detected Ur Phencyclidine Scrn Not Detected Ur Amphetamines Screen Not Detected U Benzodiazepines Scrn Not Detected Urine Cocaine Screen Not Detected U Marijuana (THC) Screen Not Detected Ethyl Alcohol COVID-19 (ELEONORA) COVID-19 Clin Com Influenza Type A (JORGE) Negative Influenza Type B (JORGE) Negative Influenza A & B Note See Note Imaging Radiologist's Impressions: Impressions Head CT 08/03/25 08:22 IMPRESSION: No acute intracranial abnormality. This result was discussed with Dr. Martin of the [facility] 8:35 AM, 08/03/2025. Electronically signed by: Chai Castillo MD 08/03/2025 08:44 AM [facility] Assessment and Plan (1) Hypertension: Status: Acute Plan 69-year-old woman placed in observation for transient anemia Transient amnesia Unknown etiology, symptoms lasted a very short time TIA versus stroke versus seizure Head CT negative for acute abnormality Get MRI Get EEG Neurology consultation Monitor any changes in neuro status Hypertension Stable blood pressures they continue amlodipine, hydrochlorothiazide, albuterol losartan Diabetes mellitus type 2 Sliding scale, ADA diet Hold glimepiride and metformin Hyperlipidemia Continue statin DVT prophylaxis with heparin Full code Quality Stroke Does the patient have a stroke diagnosis?: No VTE Prior VTE?: No VTE Risk Level:: Medical - moderate - high VTE Device Contraindication: Treatment Not Indicated VTE Drug Contraindication: N/A - Med Ordered
[2025-08-03 13:26] LABS: Glucose, Whole Blood 106 mg/dL (60-115)
--- NOTE | 2025-08-03 14:00 | PM.NEUROCN ---
History of Present Illness Data of Consult Service Date: 08/03/25 Primary Care Provider: Nat Cotton MD [facility] Reason for consult: Amnesia 69 years old woman with hypertension and diabetes who also suffered from IBS and sometime had diarrhea and sometime constipation. Today she was having constipation and said that she had to really strain while passing bowel was. She came out of the restroom and sed in her kitchen when she called her and apparently asked him same question again and again. She had no recollection of what transpired after that. There was no arm or leg weakness or seizure-like symptom. She has been having headaches and was having mild left occipital and neck area pain. No recent cold or flu-like illness. She denied drinking alcohol or exposure to any new medicine or chemical. Review of Systems Review of Systems: General: No recent symptoms HEENT: Right eye blurred vision and she was scheduled to have cataract surgery in few days Cardiovascular: No palpitation or chest pain Respiratory: No shortness of breath or wheezing Musculoskeletal: Complain of neck pain Neurological: No dizziness or double vision. She has been having mild headaches Psychiatric: No complain of anxiety or depression or change in personality Genitourinary: No loss of bowel bladder control Sleep: No significant issues reported Gastrointestinal: Complain of intermittent diarrhea and constipation PMFSH Past Medical History Medical History Rash Dysphagia [place] of foot Annual physical exam Normal Pap smear Mammogram normal History of mammogram Osteoarthritis Type 2 diabetes mellitus Hyperlipidemia Hypertension Family History Family History Father Lung cancer Mother No problems noted. Son No problems noted. Son No problems noted. Paternal Uncle Hx of colonoscopy Maternal Grandfather Stomach cancer Surgical History Surgical History H/O colonoscopy No pertinent past surgical history Social History Social History Housing: House Unable to assess alcohol history related to: Unknown Alcohol intake: never Patient Tobacco Use Status: Never used Tobacco e-Cigarette/Vaping Use: Never Used Use of substances other than those prescribed or required for medical reasons: Unknown Advance Directives: No Advance Directives Information Provided: Yes Do you have a plan to hurt others: No Plan service: No Current occupational status: employed Cognitive needs: No (wears glasses) Hearing needs: No Vision needs: Yes (wearing glasses ) Meds Allergies Allergy/AdvReac Type Severity Reaction Status Date / Time lisinopril Allergy Unknown cough Verified 08/03/25 07:12 tirzepatide (From [facility]) AdvReac Intermediate Diarrhea Verified 08/03/25 07:12 [facility] AdvReac chills and Verified 08/03/25 07:12 sweats Active Medications: Current Medications Acetaminophen (Acetaminophen 325 Mg Tablet) 650 mg PO Q6H PRN PRN Reason: Pain, Mild 1-3,fever,headache Calcium Carbonate (Calcium Carbonate 750 Mg Tab.Chew) 750 mg PO Q4H PRN PRN Reason: Heartburn Dextrose (Dextrose 50 % 25 Gm/50 Ml Syringe) 25 gm IVPUSH Q15M PRN; Protocol PRN Reason: per Hypoglycemia Standing Ord. Glucose (Glucose Gel 15 Gm Gel..Gram.) 15 gm PO Q15M PRN; Protocol PRN Reason: per Hypoglycemia Standing Ord. Heparin Sodium (Porcine) (Heparin Sodium,Porcine 5,000 Unit/Ml Vial) 5,000 unit SUBCUT Q12H [facility] Insulin Human Lispro (Insulin Lispro 100 Unit/Ml 3 Ml Vial) 0 unit SUBCUT QIDACHS [facility]; Protocol Last Admin: 08/03/25 13:27 Dose: Not Given Magnesium Hydroxide (Milk Of Magnesia 30 Ml Oral.Susp) 30 ml PO DAILY PRN PRN Reason: Constipation Melatonin (Melatonin 3 Mg Tablet) 6 mg PO BEDTIME PRN PRN Reason: Insomnia Ondansetron HCl (Ondansetron Hcl 4 Mg/2 Ml Vial) 4 mg IVPUSH Q8H PRN PRN Reason: Nausea and Vomiting Sodium Chloride (0.9 % Sodium Chloride Flush 3 Ml Syringe) 3 ml IVFSH [facility] Home Medications ?Medication ?Instructions ?Recorded ?Confirmed ?Last Taken ?Type famotidine 40 mg tablet 40 mg PO DAILY PRN Acid Reflux 08/03/25 08/03/25 Unknown History triamcinolone acetonide 0.025 % 1 appl topical DAILY PRN Itching 08/03/25 08/03/25 Unknown History topical cream Physical Exam Vital Signs: Vital Signs: Last Vital Signs Temp 97.3 F 08/03/25 13:58 Pulse 76 08/03/25 13:58 Resp 17 08/03/25 13:58 BP 122/71 08/03/25 13:58 Pulse Ox 96 08/03/25 13:58 O2 Del Method Room Air 08/03/25 13:58 BMI result Body Mass Index 32.7 Neuro: Other: Mental Status: Alert and oriented to person, place, and time. Normal attention. Normal spontaneous speech, fluency, and comprehension. No obvious issues with mood and memory. Affect is appropriate. Cranial Nerves: CN II: Visual walker full to confrontation, visual acuity intact. CN III, IV, : Pupils equal, round, reactive to light and accommodation. Extraocular movements are normal. CN V: Facial sensation is normal. CN VII: Facial movements symmetrical. CN VIII: Hearing intact to bedside conversation is normal. CN IX, X: Palate elevates symmetrically. CN XI: Shoulder shrug and head turn symmetrical. CN XII: Tongue midline without atrophy or fasciculations. Motor: No obvious focal arm or leg weakness. Plantars are flexor. Deep tendon reflexes are trace. Extrapyramidal: Full facial expressions and blinking. No rigidity. Movements are appropriate with no tremor or abnormality. Speech: Normal; no dysarthria or tremor. Results Labs 08/03/25 08:21 08/03/25 08:21 Labs: Short CBC 08/03/25 Range/Units 08:21 WBC 8.9 (4.8-10.8) X10*3/uL Hgb 13.5 (12.0-16.0) g/dl Hct 41.0 (37.0-47.0) % Plt Count 267 (160-400) X10*3/uL BMP 08/03/25 08:21 Sodium 139 Potassium 4.9 Chloride 104 Carbon Dioxide 26 BUN 17 H Creatinine 0.67 Calcium 10.3 H D Urine 08/03/25 Range/Units 08:20 Urine Color Yellow Urine Appearance Clear Urine pH 5.5 (5.0-9.0) Ur Specific [place] <= 1.005 (1.005-1.025) Urine Protein Negative (Neg-Trace) mg/dL Urine Glucose (UA) Negative (Negative) mg/dL EXAMINATION: CT HEAD WITHOUT CONTRAST (STROKE PROTOCOL) CLINICAL INFORMATION: Stroke protocol. 69-year-old female. Transient amnesia, last well-known 05:30 hours. COMPARISON: No prior available. TECHNIQUE: Contiguous axial imaging was performed from the skull base to vertex without intravenous administration of contrast. This CT examination was performed using dose optimization techniques as appropriate, variously including the following: *Automated exposure control *Adjustment of mA and/or kV according to patient size (this includes techniques or standardized protocols for targeted exams where dose is matched to indication/reason for exam; i.e. extremities or head) *Use of iterative reconstruction technique FINDINGS: There is no evidence of intracranial hemorrhage or extra-axial fluid collection. There is no mass effect, or edema. No CT evidence of acute territorial infarct. Ventricles, sulci, and cisterns are mildly diffusely prominent in keeping with age appropriate cerebral and cerebellar involutional change. No hydrocephalus. No midline shift. Negative hyperdense MCA sign. Negative insular ribbon sign. Patchy periventricular and deep white matter hypoattenuation is consistent with very mild small vessel ischemic changes. Empty sella. Mild atheromatous calcification of the bilateral carotid siphons. Globes and orbital contents image normally. No extracranial soft tissue abnormalities. The paranasal sinuses, mastoid air cells, and tympanic cavities are normally aerated. No suspicious bony abnormalities. There are no acute fractures evident. CT/CT head for STROKE IMPRESSION: No acute intracranial abnormality. Assessment and Plan (1) Transient global amnesia: Status: Acute 69 years old woman with hypertension, diabetes, IBS, and cataract who seem to have an episode of transient global amnesia. She was back to her baseline. Her head CT revealed mild cortical atrophy somewhat more pronounced in left frontal lobe. Etiology of this type of episode included a stroke in his seizure disorder. My recommendation is to obtain a noncontrast MRI of brain to rule out stroke in an EEG. Procedures Date of Service Date of Service: 08/03/25
[2025-08-03 18:31] LABS: Glucose, Whole Blood 82 mg/dL (60-115)
[2025-08-03] MEDS: 0.9 % Sodium Chloride Flush 3 ML SYRINGE IVFLUSH (18:39)
--- NOTE | 2025-08-03 19:30 | HO.NURTONUR ---
Chief Complaint: amnesia 69-year-old female with a history of dysphagia, osteoarthritis, diabetes mellitus, hyperlipidemia, hypertension who presented to the emergency department for evaluation of transient amnesia. According to the patient's , he spoke to his at 0530 while he was at work. The patient called him 2 minutes later and the patient kept asking the same questions over and over again. She kept asking the time and what was he doing. The had called her back minutes later and she had no memory of the phone call and what she was asking. They both reported that this has never happened before and during the interview the patient was AOx3. She denied recent illness, recent travel, new medications. Head CT showed no acute abnormality. She was given a full dose aspirin and she will be placed on observation. Plan: Transient amnesia Unknown etiology, symptoms lasted a very short time TIA versus stroke versus seizure Head CT negative for acute abnormality Get MRI Get EEG Neurology consultation Monitor any changes in neuro status Hypertension Stable blood pressures they continue amlodipine, hydrochlorothiazide, albuterol losartan Diabetes mellitus type 2 Sliding scale, ADA diet Hold glimepiride and metformin Hyperlipidemia Continue statin DVT prophylaxis with heparin Full code
[2025-08-03 20:32] LABS: Glucose, Whole Blood 167 mg/dL (60-115)
--- NOTE | 2025-08-03 20:37 | PC.NURSE ---
this RN assumed care of this pt @1900, pt noted to be laying [facility]-and[facility] in [facility], A+OX4, medicated per NOV, in no apparent distress, awaiting transport to transfer to admission bed
--- NOTE | 2025-08-04 00:28 | PC.NURSE ---
Patient arrived as admit to s4 from ED. Admitted with chief complaint of transient amnesia. A&Ox4. Pt denies dizziness, vision changes, weakness, chest pain, sob, n/v, or other acute complaints. Speech is clear, +PERRLA, conjugate gaze and follows commands. Pt was initially placed on tele showing NSR, though tele was discontinued per Dr. Groves. Breathing is even and unlabored without distress on room air. Skin intact. Bed alarm on and safety measures in place.
[2025-08-04 03:23] VITALS: BP 128/61; PULSE 70; RESP 18; TEMP 36.4; O2SAT 91
[2025-08-04 06:57] LABS: Hematocrit 39.6 % (37.0-47.0); Hemoglobin 13.1 g/dl (12.0-16.0); Mean Corpuscular HGB Conc 33.1 g/dl (31.0-35.0); Mean Corpuscular Hemoglobin 26.7 pg (27.0-33.0); Mean Corpuscular Volume 80.7 fL (80.0-98.0); NRBC Abs Auto 0.000 X10*3/uL (0.0-0.012); NRBC Pct Auto 0.0 /100WBC (0.0-0.2); Platelet Count 246 X10*3/uL (160-400); Red Blood Count 4.91 X10*6/uL (4.20-5.50); White Blood Count 7.7 X10*3/uL (4.8-10.8)
[2025-08-04 07:18] LABS: Anion Gap 15 (12-20); Blood Urea Nitrogen 20 mg/dL (9-16); Calcium 9.7 mg/dL (8.4-10.2); Carbon Dioxide 25 mmol/L (22-29); Chloride 102 mmol/L (96-108); Creatinine Clr Calc Pharmacy 72.3; Estimated Glomerular Filt Rate > 60; Potassium 4.1 mmol/L (3.3-5.1); Sodium 138 mmol/L (135-145)
[2025-08-04 07:30] LABS: Glucose, Whole Blood 210 mg/dL (60-115)
[2025-08-04 07:56] VITALS: BP 168/81; PULSE 89; RESP 16; TEMP 36.4; O2SAT 97
[2025-08-04] MEDS: 0.9 % Sodium Chloride Flush 3 ML SYRINGE IVFLUSH (09:15)
--- NOTE | 2025-08-04 09:22 | P.PNIM_ITS ---
Subjective Subjective Date of Service: 08/04/25 Review of Systems Follow up Constitutional Denies any recent fever chills or decrease in appetite respiratory denies any shortness of breath or cough cardiovascular denied chest pain gastrointestinal denies any dysphagia abdominal pain nausea vomiting or diarrhea genitourinary denies any dysuria frequency or hematuria musculoskeletal denies any joint pain or swelling neuropsych denies any weakness or seizures all other systems reviewed are negative Physical Exam 2 Exam: Exam: Appearing in no acute distress head is normocephalic atraumatic eyes pupils are PERRLA sclera is anicteric mouth throat mucous membranes are intact and moist neck is supple no lymphadenopathy, no JVD noted lung sounds are clear to auscultation heart regular rate rhythm, clear S1, S2 positive bowel sounds, abdomen is soft, nontender neuro patient is alert x3, no focal deficits Vital Signs: Vital Signs: Last Vital Signs Temp 97.6 F 08/04/25 07:56 Pulse 89 08/04/25 07:56 Resp 16 08/04/25 07:56 BP 168/81 H 08/04/25 07:56 Pulse Ox 97 08/04/25 07:56 O2 Del Method Room Air 08/04/25 07:56 BMI result Body Mass Index 33.0 Objective Data Active Medications Acetaminophen (Acetaminophen 325 Mg Tablet) 650 mg PO Q6H PRN PRN Reason: Pain, Mild 1-3,fever,headache Amlodipine Besylate (Amlodipine Besylate 5 Mg Tablet) 5 mg PO BID [facility]; Protocol Last Admin: 08/04/25 09:10 Dose: 5 mg Documented By: [place] Atorvastatin Calcium (Atorvastatin Calcium 40 Mg Tablet) 40 mg PO DAILY [facility] Last Admin: 08/04/25 09:10 Dose: 40 mg Documented By: [place] Calcium Carbonate (Calcium Carbonate 750 Mg Tab.Chew) 750 mg PO Q4H PRN PRN Reason: Heartburn Dextrose (Dextrose 50 % 25 Gm/50 Ml Syringe) 25 gm IVPUSH Q15M PRN; Protocol PRN Reason: per Hypoglycemia Standing Ord. Famotidine (Famotidine 20 Mg Tablet) 40 mg PO DAILY PRN PRN Reason: Acid Reflux Glucose (Glucose Gel 15 Gm Gel..Gram.) 15 gm PO Q15M PRN; Protocol PRN Reason: per Hypoglycemia Standing Ord. Heparin Sodium (Porcine) (Heparin Sodium,Porcine 5,000 Unit/Ml Vial) 5,000 unit SUBCUT Q12H [facility] Last Admin: 08/04/25 09:11 Dose: 5,000 unit Documented By: [place] Hydrochlorothiazide (Hydrochlorothiazide 12.5 Mg Tablet) 12.5 mg PO DAILY [facility]; Protocol Last Admin: 08/04/25 09:11 Dose: 12.5 mg Documented By: [place] Insulin Human Lispro (Insulin Lispro 100 Unit/Ml 3 Ml Vial) 0 unit SUBCUT QIDACHS [facility]; Protocol Last Admin: 08/04/25 09:13 Dose: 4 unit Documented By: [place] Magnesium Hydroxide (Milk Of Magnesia 30 Ml Oral.Susp) 30 ml PO DAILY PRN PRN Reason: Constipation Melatonin (Melatonin 3 Mg Tablet) 6 mg PO BEDTIME PRN PRN Reason: Insomnia Ondansetron HCl (Ondansetron Hcl 4 Mg/2 Ml Vial) 4 mg IVPUSH Q8H PRN PRN Reason: Nausea and Vomiting Sodium Chloride (0.9 % Sodium Chloride Flush 3 Ml Syringe) 3 ml IVFLUSH QSHIFT [facility] Last Admin: 08/04/25 09:15 Dose: 3 ml Documented By: [place] Valsartan (Valsartan 160 Mg Tablet) 160 mg PO DAILY [facility]; Protocol Last Admin: 08/04/25 09:11 Dose: 160 mg Documented By: [place] Vitamin D (Cholecalciferol (Vitamin D3) 25 Mcg Tablet) 50 mcg PO DAILY [facility] Last Admin: 08/04/25 09:11 Dose: 50 mcg Documented By: [place] Labs 08/04/25 06:16 08/04/25 06:16 Labs: Laboratory Results - last 24 hr 08/03/25 08/03/25 08/03/25 09:29 10:19 13:21 MCV MCH MCHC RDW Plt Count MPV Absolute Nucleated RBC Nucleated RBC % (auto) Whole Blood PT 12.0 Whole Blood INR 1.0 Anion Gap Estim Creat Clear Calc Estimated GFR POC Glucose 106 Random Glucose Calcium Urine Opiates Screen Not Detected Ur Buprenorphine Scrn Not Detected Ur Oxycodone Screen Not Detected Urine Methadone Screen Not Detected Urine Fentanyl Screen Not Detected Ur Barbiturates Screen Not Detected Ur Phencyclidine Scrn Not Detected Ur Amphetamines Screen Not Detected U Benzodiazepines Scrn Not Detected Urine Cocaine Screen Not Detected U Marijuana (THC) Screen Not Detected Influenza Type A (JORGE) Negative Influenza Type B (JORGE) Negative Influenza A & B Note See Note 08/03/25 08/03/25 08/04/25 18:27 20:26 06:16 MCV 80.7 MCH 26.7 L MCHC 33.1 RDW 14.2 Plt Count 246 MPV 10.4 Absolute Nucleated RBC 0.000 Nucleated RBC % (auto) 0.0 Whole Blood PT Whole Blood INR Anion Gap 15 Estim Creat Clear Calc 72.3 Estimated GFR > 60 POC Glucose 82 167 H Random Glucose 186 H Calcium 9.7 Urine Opiates Screen Ur Buprenorphine Scrn Ur Oxycodone Screen Urine Methadone Screen Urine Fentanyl Screen Ur Barbiturates Screen Ur Phencyclidine Scrn Ur Amphetamines Screen U Benzodiazepines Scrn Urine Cocaine Screen U Marijuana (THC) Screen Influenza Type A (JORGE) Influenza Type B (JORGE) Influenza A & B Note 08/04/25 07:19 MCV MCH MCHC RDW Plt Count MPV Absolute Nucleated RBC Nucleated RBC % (auto) Whole Blood PT Whole Blood INR Anion Gap Estim Creat Clear Calc Estimated GFR POC Glucose 210 H Random Glucose Calcium Urine Opiates Screen Ur Buprenorphine Scrn Ur Oxycodone Screen Urine Methadone Screen Urine Fentanyl Screen Ur Barbiturates Screen Ur Phencyclidine Scrn Ur Amphetamines Screen U Benzodiazepines Scrn Urine Cocaine Screen U Marijuana (THC) Screen Influenza Type A (JORGE) Influenza Type B (JORGE) Influenza A & B Note Assessment and Plan Plan 69-year-old woman placed in observation for transient anemia Transient amnesia Unknown etiology, symptoms lasted a very short time TIA versus stroke versus seizure Head CT negative for acute abnormality Noncontrast MRI of brain to rule out stroke in an EEG per Neurologist recommendation. Neurology following Monitor any changes in neuro status Hypertension Stable blood pressures they continue amlodipine, hydrochlorothiazide, albuterol losartan Diabetes mellitus type 2 Sliding scale, ADA diet Hold glimepiride and metformin Hyperlipidemia Continue statin DVT prophylaxis with heparin Full code Quality Stroke Does the patient have a stroke diagnosis?: No VTE Prior VTE?: No VTE Risk Level:: Medical - moderate - high VTE Device Contraindication: Treatment Not Indicated VTE Drug Contraindication: N/A - Med Ordered
--- NOTE | 2025-08-04 09:37 | MHC.CM.PN ---
CM met with Patient and addressed BEEBE with her. Patient lives in a house with her , who will transport at dc. Home/self care is Patient's' goal and CM has initiated and will follow for dc planning. PCP is Dr. Nat Cotton.
[2025-08-04 11:12] LABS: Glucose, Whole Blood 296 mg/dL (60-115)
--- NOTE | 2025-08-04 14:03 | P.DS_ITS ---
DS: Providers Provider Date of Service: 08/04/25 Date of admission: 08/03/25 10:38 Date of discharge: 08/04/25 Primary care physician: Nat Cotton MD Consults: 08/03/25 10:40 Consult to Neurology Routine Consulting Provider: [facility] Reason for consultation: transient amnesia DS: Diagnosis Discharge Diagnosis (1) Transient global amnesia: Status: Acute DS: Summary Hospital Course Hospital Course: History and physical as per admitting provider. 69-year-old female with a history of dysphagia, osteoarthritis, diabetes mellitus, hyperlipidemia, hy pertension who presented to the emergency department for evaluation of transient amnesia. According to the patient's , he spoke to his at 0530 while he was at work. The patient called him 2 minutes later and the patient kept asking the same questions over and over again. She kept asking the time and what was he doing. The had called her back minutes later and she had no memory of the phone call and what she was asking. They both reported that this has never happened before and during the interview the patient was AOx3. She denied recent illness, recent travel, new medications. Head CT showed no acute abnormality. She was given a full dose aspirin and she will be placed on observation. Transient amnesia secondary to Stroke. Note from Neurology Her MRI of brain revealed a tiny area of left temporal ischemic infarct appearing as hyperintensity on DWI and hyperintensity on perfusion scan. This would explain her symptoms. My recommendation is to investigate her for cardiac source of embolism. CTA of brain and neck is also recommended. During this time she should be treated with anti-platelet agent, statin and blood pressure control . Patient should follow up outpatient with the primary care provider to set her up with a Holter monitor. Patient will go home on aspirin and statin. Start aspirin after cataract surgery. Hypertension Stable blood pressures they continue amlodipine, hydrochlorothiazide, albuterol losartan Diabetes mellitus type 2 Treated with Sliding scale, ADA diet Resume glimepiride and metformin Hyperlipidemia Continue statin Time Attestation Discharge Coordination Time (in mins): 40 Quality: Safe Use of Opioids Does Pt have an Active Cancer Diagnosis on the Problem List?: No Quality: Stroke Does the patient have a stroke diagnosis?: No Physical Exam Exam: Exam: Appearing in no acute distress head is normocephalic atraumatic eyes pupils are PERRLA sclera is anicteric mouth throat mucous membranes are intact and moist neck is supple no lymphadenopathy, no JVD noted lung sounds are clear to auscultation heart regular rate rhythm, clear S1, S2 positive bowel sounds, abdomen is soft, nontender neuro patient is alert x3, no focal deficits Vital Signs: Vital Signs: Last Vital Signs Temp 97.6 F 08/04/25 07:56 Pulse 89 08/04/25 07:56 Resp 16 08/04/25 07:56 BP 168/81 H 08/04/25 07:56 Pulse Ox 97 08/04/25 07:56 O2 Del Method Room Air 08/04/25 07:56 BMI result Body Mass Index 33.0 DS: Data Data Completed and Pending Labs on day of discharge: Laboratory Results - last 24 hr 08/03/25 08/03/25 08/04/25 18:27 20:26 06:16 WBC 7.7 RBC 4.91 Hgb 13.1 Hct 39.6 MCV 80.7 MCH 26.7 L MCHC 33.1 RDW 14.2 Plt Count 246 MPV 10.4 Absolute Nucleated RBC 0.000 Nucleated RBC % (auto) 0.0 Sodium 138 Potassium 4.1 Chloride 102 Carbon Dioxide 25 Anion Gap 15 BUN 20 H Creatinine 0.69 Estim Creat Clear Calc 72.3 Estimated GFR > 60 POC Glucose 82 167 H Random Glucose 186 H Calcium 9.7 08/04/25 08/04/25 07:19 11:08 WBC RBC Hgb Hct MCV MCH MCHC RDW Plt Count MPV Absolute Nucleated RBC Nucleated RBC % (auto) Sodium Potassium Chloride Carbon Dioxide Anion Gap BUN Creatinine Estim Creat Clear Calc Estimated GFR POC Glucose 210 H 296 H Random Glucose Calcium Discharge Plan Discharge Anticipated Discharge Date/Time: 08/04/25 13:47 Patient Disposition: Home, Self-Care Discharge Diagnosis: Stroke transient amnesia Referrals: Nat Cotton MD [Primary Care Provider, Internal Medicine] - 1 Week Discharge Medications: New aspirin 81 mg tablet 81 mg PO DAILY Qty: 30 0RF Continued hydrochlorothiazide 12.5 mg tablet 12.5 mg PO DAILY Qty: 90 3RF amlodipine 5 mg tablet 5 mg PO BID Qty: 180 3RF cholecalciferol (vitamin D3) 50 mcg (2,000 unit) capsule 50 mcg PO DAILY Qty: 90 3RF irbesartan 300 mg tablet 300 mg PO DAILY Qty: 90 3RF atorvastatin 40 mg tablet 40 mg PO DAILY Qty: 90 3RF metformin 1,000 mg tablet 1,000 mg PO BID Qty: 180 3RF glimepiride 2 mg tablet 2 mg PO DAILY Qty: 90 3RF famotidine 40 mg tablet 40 mg PO DAILY PRN (Reason: Acid Reflux) triamcinolone acetonide 0.025 % cream 1 appl topical DAILY PRN (Reason: Itching) Rx Instructions: APPLY TO HEELS Discharge Orders: Discharge Order (Routine); Ordered 08/04/25 Ordered By: Mindi Carter Diet: Advance to usual diet Activity on Discharge: As tolerated Stand Alone Forms: Patient Portal Discharge page Print Language: Lithuanian Care Plan Goals: Take aspirin after cataract surgery Follow up with primary care provider for question of Holter monitor with possible arrhythmia being the cause of stroke Health Concerns: Stroke Transient amnesia Plan of Treatment: Follow up with the primary care provider as needed Take all medications as prescribed Assessment: See discharge summary
--- NOTE | 2025-08-04 14:06 | MHC.STROKE ---
Dr. Medina reviewed MRI images and felt that patient had small temporal lobe stroke. Pt updated on results. Stroke Education reviewed with patient. Educational materials given. Pt's medical hx including medications, diet, activity and social hx reviewed. All questions answered. Pt is anxious to get home. Plan is for discharge this afternoon. Aspirin held as patient is supposed to have cataract surgery tomorrow. It was recommended that she consult with her provider but she states she's already had to reschedule and wants the procedure done tomorrow.
--- NOTE | 2025-08-04 14:16 | MHC.CM.PN ---
Medically cleared for dc to home today, self care.
== END 2025-08-04 14:45 | disposition home or self-care (01) | DRG 66 ==
LOC: HO.ED 08:36 → HO.EDOVER 10:45 → HO.IMC 19:17
PROVIDERS: Admitting Provider Nurse Practitioner Acute Care; Emergency Provider Emergency Medicine Emergency Medical Services; PCP Internal Medicine; Visit Provider Nurse Practitioner Acute Care
DX: I63.9 Cerebral infarction, unspecified (principal); G45.4 Transient global amnesia; I10 Essential (primary) hypertension; E78.5 Hyperlipidemia, unspecified; R29.700 NIHSS score 0; E11.9 Type 2 diabetes mellitus without complications; Z20.822 Contact with and (suspected) exposure to COVID-19; Z79.82 Long term (current) use of aspirin; Z79.84 Long term (current) use of oral hypoglycemic drugs; Z79.899 Other long term (current) drug therapy
CPT/HCPCS: 36415; 70450; 70551; 80048; 80061; 80307; 81003; 82947; 84484; 85025; 85027; 85610; 85730; 87502; 87635; 93005; 95816; 99222; 99285; J1644

== ENCOUNTER → 2025-08-03 07:43 | Outpatient (BNV) | payer OTHER, MEDICARE, SELFPAY | PROVIDERS: Emergency Provider Emergency Medicine Emergency Medical Services; PCP Internal Medicine; Visit Provider Internal Medicine | DX: R41.82 Altered mental status, unspecified (principal) | CPT/HCPCS: 93010 ==

== ENCOUNTER → 2025-08-03 08:13 | Outpatient (BNV) | payer OTHER, MEDICARE, SELFPAY | PROVIDERS: Emergency Provider Emergency Medicine Emergency Medical Services; PCP Internal Medicine; Visit Provider Radiology Diagnostic Radiology | DX: G45.4 Transient global amnesia (principal) | CPT/HCPCS: 70450; 70551 ==

== ENCOUNTER → 2025-08-03 10:38 | Outpatient (BNV) | payer OTHER, MEDICARE, SELFPAY | PROVIDERS: Admitting Provider Nurse Practitioner Acute Care; Emergency Provider Emergency Medicine Emergency Medical Services; PCP Internal Medicine; Visit Provider Nurse Practitioner Acute Care | DX: G45.4 Transient global amnesia (principal) | CPT/HCPCS: 99223; 99239 ==

== ENCOUNTER → 2025-08-03 10:38 | Outpatient (BNV) | payer OTHER, MEDICARE, SELFPAY | PROVIDERS: Admitting Provider Nurse Practitioner Acute Care; Emergency Provider Emergency Medicine Emergency Medical Services; PCP Internal Medicine; Visit Provider Psychiatry & Neurology Neurology | DX: G45.4 Transient global amnesia (principal) | CPT/HCPCS: 99222 ==

== ENCOUNTER 2025-08-05 08:51 | Outpatient (AMB) | payer OTHER, MEDICARE, SELFPAY ==
[2025-08-05 09:14] VITALS: BP 126/68; PULSE 89; RESP 17; TEMP 36.6; O2SAT 97; BMI 32.2
--- NOTE | 2025-08-05 09:14 | MHC.PC.OV ---
Vital Signs 08/05/25 09:14 Height 5 ft Weight 165 lb BMI 32.2 BP 126/68 Blood Pressure Location Lt brachial Position Sitting Respiration 17 Pulse 89 Pulse Source Pulse Oximeter Temp 97.9 F Temp Source Oral Pulse Oximetry (%) 97 Oxygen Delivery Method Room Air Intake Visit Reasons: Pre op cataract surgery Intake Note: Pt is here today for a pre op visit. Pt ios having cataract surgery on 08/06/25. Allergies lisinopril Allergy (Unknown, Verified 08/05/25 09:29) cough tirzepatide (From [facility]) Adverse Reaction (Intermediate, Verified 08/05/25 09:29) Diarrhea dulaglutide (From [facility]) Adverse Reaction (Verified 08/05/25 09:29) chills and sweats Medication List - Last Reconciled 08/05/25 by Nat Cotton MD amlodipine 5 mg PO BID aspirin 81 mg PO DAILY atorvastatin 40 mg PO DAILY cholecalciferol (vitamin D3) 50 mcg PO DAILY famotidine 40 mg PO DAILY PRN glimepiride 2 mg PO DAILY hydrochlorothiazide 12.5 mg PO DAILY irbesartan 300 mg PO DAILY metformin 1,000 mg PO BID semaglutide (Ozempic) 0.25 mg (0.368 mL) subcut QWEEK triamcinolone acetonide 0.025% 1 appl topical DAILY PRN Tobacco use date assessed: 08/05/25 Fall risk assessment: No Falls in past year Last assessed Fall Risk: 08/05/25 Dental Screening Dental Screen Date: 04/07/25 HPI Pre op cataract surgery HPI Details Pt presents for preop for cataract surgery. Pt was hospitalized at [facility] for 2 days after she had an episode of global transient amnesia for 15 minutes. Neuro workup included negative EEG and brain MRI consistent scattered microangiopathic changes and chronic volume loss. Patient was discharged home on 81 mg of aspirin and was advised to have a stroke workup as outpatient including Holter echo and CT angiogram of brain and neck. Patient was cleared by neurologist to have a cataract surgery. Hypertension hyperlipidemia type 2 diabetes is stable on current medications. [facility] Medical History Rash Dysphagia [place] of foot Annual physical exam Normal Pap smear Mammogram normal History of mammogram Osteoarthritis Type 2 diabetes mellitus Hyperlipidemia Hypertension Surgical History H/O colonoscopy No pertinent past surgical history Family History Father Lung cancer Mother No problems noted. Son No problems noted. Son No problems noted. Paternal Uncle Hx of colonoscopy Maternal Grandfather Stomach cancer Social History Household Members: Spouse Housing: House Do you presently have visiting nurse or other home services: No Alcohol intake: never Patient Tobacco Use Status: Never used Tobacco e-Cigarette/Vaping Use: Never Used service: No Current occupational status: employed Cognitive needs: No (wears glasses) Hearing needs: No Vision needs: Yes (wearing glasses ) Questionnaire Thrive Questionnaire Date Thrive assessed: 08/04/25 I am a: Patient What is your living situation today?: I have a steady place to live Within the past 12 months, did the food you bought not last and you didn't have the money to get more?: Never true Within the past 12 months, did you worry whether your food would run out before you got money to buy more?: Never true Do you have trouble paying for medicines?: No Do you have trouble getting transportation to medical appointments?: No Do you have trouble paying your heating and electricity bill?: No Do you have trouble taking care of your child, family member or friend?: No Do you have trouble with day-to-day activities such as bathing, preparing meals, shopping, managing finances, etc.?: No Are you currently unemployed and looking for a job?: No Are you interested in more education?: No THRIVE Score: 0 ODESSA-7 AMB Questionnaire ODESSA-7 Date ODESSA - 7 assessed: 12/08/24 Source: Developed by Drs. Mikhail Baca, Julienne Murrell, Brian Scott and colleagues, with an educational patrick from [employer]. Review of Systems Const All systems reviewed & are unremarkable except as noted in HPI and below Eyes Reports no additional complaints ENT Reports no additional complaints Card Reports no additional complaints Resp Reports no additional complaints GI Reports no additional complaints Reports no additional complaints Physical exam (Primary Care) Vital Signs: Last Vital Signs Temp 97.9 F 08/05/25 09:14 Pulse 89 08/05/25 09:14 Resp 17 08/05/25 09:14 BP 126/68 08/05/25 09:14 Pulse Ox 97 08/05/25 09:14 Oxygen Delivery Method Room Air 08/05/25 09:14 BMI result Body Mass Index 32.2 Tobacco/Smoking Status: Tobacco use Status Tobacco use date assessed 08/05/25 08/05/25 09:27 Patient Tobacco Use Status Never used Tobacco 08/05/25 09:15 e-Cigarette/Vaping Use Never Used 08/05/25 09:15 Thrive Assessment: Date of Thrive Assessment Date Thrive assessed 08/04/25 08/05/25 09:15 Const General: no acute distress HENMT Head: Yes normal to inspection Mouth: Normal oral and palatal mucosa present Throat: Yes posterior oropharynx normal Eyes General: appearance normal, both eyes and all related structures Neck Neck: Yes supple Resp Effort & Inspection: normal respiratory effort Auscultation: clear to auscultation bilaterally Cardio Rhythm: regular rhythm Heart sounds: S1 normal heart sound present and S2 normal heart sound present GI Inspection: Yes normal to inspection Palpation (GI): Soft to palpation Percussion: Yes normal to percussion Auscultation: normal bowel sounds Coding Level of Care Code Est Pt Level 4 (92659) Diagnoses Transient amnesia R41.3 Cataract H26.9 Type 2 diabetes mellitus E11.9 Hypertension I10 Hyperlipidemia E78.5 Assessment & Plan Assessment & Plan (1) Transient amnesia: Comment: 07/2025 nl EEG, MR brain scattered perivascular focal areas of white matter degeneration due to microangiopathy Code(s): R41.3 - Other amnesia Category: Medical Plan: Echo Holter and CT angiogram of brain and neck will be scheduled. Patient will restart low dose aspirin after cataract surgery (2) Cataract: Code(s): H26.9 - Unspecified cataract Category: Medical Plan: Patient is medically cleared for cataract surgery (3) Type 2 diabetes mellitus: Comment: Insurance did not cover Farxiga or Jardiance, Trulicity caused hypoglycemia and tremor Code(s): E11.9 - Type 2 diabetes mellitus without complications Category: Medical Plan: ADA diet increase physical activity weight loss discussed with the patient. Ozempic 0.25 mg weekly will be added to current medications. Patient will follow-up in 2 months with a fasting labs before (4) Hypertension: Code(s): I10 - Essential (primary) hypertension Category: Medical Plan: Continue current medications (5) Hyperlipidemia: Code(s): E78.5 - Hyperlipidemia, unspecified Category: Medical Plan: Continue high dose statin Orders: Orders CA echo transthoracic complete Today G45.9 - Transient cerebral ischemic attack, unspecified, I63.9 - Cerebral infarction, unspecified, R41.3 - Other amnesia, R94.39 - Abnormal result of other cardiovascular function study ECG 7 day holter monitor Today G45.9 - Transient cerebral ischemic attack, unspecified, I63.9 - Cerebral infarction, unspecified, R41.3 - Other amnesia, R94.39 - Abnormal result of other cardiovascular function study CT angio head neck STROKE Today G45.9 - Transient cerebral ischemic attack, unspecified, I63.9 - Cerebral infarction, unspecified, R41.3 - Other amnesia, R94.39 - Abnormal result of other cardiovascular function study Medications: New semaglutide (Ozempic) 0.25 mg (0.368 mL) subcut QWEEK 3 mL 2RF
--- OUTSIDE RECORDS SUMMARY | 2025-08-05 09:16 | XMS_ITS | Encounter Summary ---
Author Organization [facility] Address [address] [place] [phone] Phone Care Team Providers Care Harness Cleaner Name Role Phone Unavailable Primary Care Provider Unavailabl e Encounter Details Date Type Department Care Team (Late st Contact Info) Description 06/09/2025 Telephone [facility] [address], [place] [phone] Julienne Urias, BINDU Social History Tobacco Use Types Packs/Day Years [...] It is not the complete legal health record.[facility]
--- OUTSIDE RECORDS SUMMARY | 2025-08-05 09:16 | XMS_ITS | Clinical Summary ---
Author Organization [facility] ity Address [address] [place] [address] Care Team Providers Care Floating Labor Gang Supervisor Name Role Phone aNt Cotton MD Primary Care Provider Medical History [...] age to complete this topic Care Teams Floating Labor Gang Supervisor Relationship Specialty Start Date End Date Nat Cotton MD PCP - General 11/03/17
--- OUTSIDE RECORDS SUMMARY | 2025-08-05 09:16 | XMS_ITS | Clinical Summary ---
Author Organization [facility] Address [address] [place] [phone] Phone Care Team Providers Care Neurosurgery Spine Physician Name Role Phone Unavailable Primary Care Provider Unavailabl e Encounters Date Type Department Care Team Description 06/09/2025 Telephone [facility] [address] [place], [place] [phone] Julienne Urias CNP from Last 3 Months [...] It is not the complete legal health record.[facility]
== END 2025-08-05 09:55 | disposition home or self-care (01) ==
LOC: HO.HMCC 08:52
PROVIDERS: PCP Internal Medicine; Visit Provider Internal Medicine
DX: R41.3 Other amnesia (principal); H26.9 Unspecified cataract; E11.9 Type 2 diabetes mellitus without complications; I10 Essential (primary) hypertension; E78.5 Hyperlipidemia, unspecified